=== PATIENT | female | born 1945 | race Caucasian/White ===

== ENCOUNTER 2018-12-10 15:41 | Emergency (ER) | payer MEDICARE ==
[2018-12-10] MEDS ORDERED: Sodium Chloride 0.9% 1000 ML 1,000 ML IV STA (16:06)
[2018-12-10] MEDS ORDERED: Sodium Chloride 0.9% 1000 ML 1,000 ML ONE (16:10)
--- NOTE | 2018-12-10 16:11 | ERPHSYRPT ---
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 She denies recent hospitalization or antibiotics. Timing/Duration: day(s) (3) Activities at Onset: none Abdominal Pain Onset Location: generalized abdomen Pain Radiation: no radiation Severity of Pain-Max: mild Severity of Pain-Current: none Modifying Factors: Improves With: nothing Associated Symptoms: diarrhea, nausea Previous symptoms: no prior history Allergies/Adverse Reactions: tetracycline Allergy (Verified 06/20/16 19:50) Home Medications: Levetiracetam [Keppra 500 mg ] 500 mg PO HS 06/20/16 [History] Simvastatin 40 mg [Zocor 40 mg] 40 mg PO HS 06/20/16 [History] hydroCHLOROthiazide [Hydrochlorothiazide] 12.5 mg PO DAILY 06/20/16 [History] Hx Tetanus, Diphtheria Vaccination/Date Given: No Hx Influenza Vaccination/Date Given: No Hx Pneumococcal Vaccination/Date Given: Yes - Review of Systems Constitutional: No Symptoms Eyes: No Symptoms Ears, Nose, & Throat: No Symptoms Respiratory: No Symptoms Cardiac: No Symptoms Abdominal/Gastrointestinal: Abdominal Pain, Nausea, Diarrhea Musculoskeletal: No Symptoms Skin: No Symptoms Neurological: No Symptoms All Other Systems: Reviewed and Negative - Past Medical History Pertinent Past Medical History: Yes Neurological History: Seizures, Other Cardiac History: Hypertension Respiratory History: No Pertinent History Endocrine Medical History: No Pertinent History Musculoskeletal History: Osteoarthritis GI Medical History: No Pertinent History History: No Pertinent History Psycho-Social History: No Pertinent History Other Medical History: 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 - Past Surgical History Past Surgical History: Yes Gastrointestinal: Appendectomy Musculoskeletal: Joint Replacement, Orthopedic Surgery Female Surgical History: Hysterectomy Other Surgical History: bilat tka, bilat rcr - Social History Smoking Status: Current every day smoker How long have you smoked: 52 yrs Exposure to second hand smoke: Yes Drug Use: none Patient Lives Alone: Yes - Female History Hx Last Menstrual Period: hyster Hx Now: No - Nursing Vital Signs Nursing Vital Signs: Initial Vital Signs Temperature 97.0 F 12/10/18 16:00 Pulse Rate 72 12/10/18 16:00 Respiratory Rate 18 12/10/18 16:00 Blood Pressure 130/75 12/10/18 16:00 O2 Sat by Pulse Oximetry 97 12/10/18 16:00 Pain Scale Pain Intensity 0 - Physical Exam General Appearance: no apparent distress Eye Exam: eyes nml inspection Ears, Nose, Throat Exam: normal ENT inspection, moist mucous membranes Neck Exam: normal inspection, non-tender, supple, No JVD Respiratory Exam: normal breath sounds, lungs clear Cardiovascular Exam: regular rate/rhythm, normal heart sounds, normal peripheral pulses Gastrointestinal/Abdomen Exam: soft, normal bowel sounds, tenderness (mild, diffuse), No distention, No mass, No guarding, No ecchymosis, No pulsatile mass , No rebound, No hernia, No organomegaly Extremity Exam: normal inspection Neurologic Exam: alert, oriented x 3, cooperative, normal mood/affect Skin Exam: normal color, warm, dry, No rash, No petechiae Lymphatic Exam: No adenopathy SpO2 Interpretation: normal SpO2: 97 O2 Delivery: Room Air - Course Nursing assessment & vital signs reviewed: Yes - CT Exams Abdomen/Pelvis CT Interpretation: Negative, Tele-radiologist Report, Other (bilateral renal cysts, and 2 hepatic cysts, no acute changes.) Ordered Tests: Active Orders 24 hr Category Date Time Status IV Insertion STAT Care 12/10/18 16:06 Active ABDOMEN AND PELVIS W CONTRAST [CT] Stat Exams 12/10/18 16:57 Taken CBC W DIFF Stat Lab 12/10/18 16:15 Completed CMP Stat Lab 12/10/18 16:15 Completed CULTURE,URINE Stat Lab 12/10/18 17:15 Received LIPASE Stat Lab 12/10/18 16:15 Completed Lactic Acid Stat Lab 12/10/18 16:20 Completed Occult Blood, Other Screening Stat Lab 12/10/18 17:15 Ordered UA W/RFX UR CULTURE Stat Lab 12/10/18 17:15 Completed Urine Triage Profile Stat Lab 12/10/18 17:15 Completed Medication Summary Discontinued Medications Generic Name Dose Route Start Last Admin Trade Name Freq PRN Reason Stop Dose Admin Sodium Chloride 1,000 mls @ 999 mls/hr 12/10/18 16:06 12/10/18 18:54 Sodium Chloride 0.9% 1000 Ml IV 12/10/18 17:06 Infused .Q1H1M STA Infusion Sodium Chloride Confirm 12/10/18 16:10 Sodium Chloride 0.9% 1000 Ml Administered 12/10/18 16:11 Dose 1,000 mls @ ud .ROUTE .STK-MED ONE Lab/Rad Data: Laboratory Result Diagrams 12/10/18 16:15 12/10/18 16:15 Laboratory Results 12/10/18 12/10/18 12/10/18 Range/Units 17:15 17:15 16:20 WBC (4.0-10.5) K/mm3 RBC (4.1-5.4) M/mm3 Hgb (12.0-16.0) gm/dl Hct (35-47) % MCV (78-100) fl MCH (26-32) pg MCHC (32-36) g/dl RDW (11.5-14.0) % Plt Count (150-450) K/mm3 MPV (6-9.5) fl Gran % (36.0-66.0) % Eos # (Auto) (0-0.5) Absolute Lymphs (auto) (1.0-4.6) Absolute Monos (auto) (0.0-1.3) Lymphocytes % (24.0-44.0) % Monocytes % (0.0-12.0) % Eosinophils % (0.00-5.0) % Basophils % (0.0-0.4) % Absolute Granulocytes (1.4-6.9) Basophils # (0-0.4) Sodium (137-145) mmol/L Potassium (3.5-5.1) mmol/L Chloride (98-107) mmol/L Carbon Dioxide (22-30) mmol/L Anion Gap (5-15) MEQ/L BUN (7-17) mg/dL Creatinine (0.52-1.04) mg/dL Estimated GFR ML/MIN Glucose (74-106) mg/dL Lactic Acid 0.9 (0.4-2.0) Calcium (8.4-10.2) mg/dL Total Bilirubin (0.2-1.3) mg/dL AST (14-36) U/L ALT (0-35) U/L Alkaline Phosphatase (38-126) U/L Serum Total Protein (6.3-8.2) g/dL Albumin (3.5-5.0) g/dL Lipase (23-300) U/L Urine Color YELLOW (YELLOW) Urine Appearance SLIGHTLY CLOUDY (CLEAR) Urine pH 5.0 (5-6) Ur Specific Newell 1.013 (1.005-1.025) Urine Protein 30 (Negative) Urine Ketones NEGATIVE (NEGATIVE) Urine Blood MODERATE (0-5) Kenny/ul Urine Nitrite NEGATIVE (NEGATIVE) Urine Bilirubin NEGATIVE (NEGATIVE) Urine Urobilinogen NEGATIVE (0-1) mg/dL Ur Leukocyte Esterase NEGATIVE (NEGATIVE) Urine WBC (Auto) 0-2 (0-5) /HPF Urine RBC (Auto) 6-10 (0-2) /HPF U Hyaline Cast (Auto) 0-2 (0-2) /LPF U Epithel Cells (Auto) RARE (FEW) /HPF Urine Bacteria (Auto) NONE (NEGATIVE) /HPF Urine Mucus (Auto) SLIGHT (NEGATIVE) /HPF Urine Culture Reflexed YES (NO) Urine Glucose NEGATIVE (NEGATIVE) mg/dL Urine Opiates Level NEGATIVE (NEGATIVE) Ur Methadone NEGATIVE (NEGATIVE) Urine Barbiturates NEGATIVE (NEGATIVE) Ur Phencyclidine (PCP) NEGATIVE (NEGATIVE) Urine Amphetamine NEGATIVE (NEGATIVE) U Benzodiazepine Level NEGATIVE (NEGATIVE) Urine Cocaine NEGATIVE (NEGATIVE) Urine Marijuana (THC) NEGATIVE (NEGATIVE) 12/10/18 12/10/18 Range/Units 16:15 16:15 WBC 6.2 (4.0-10.5) K/mm3 RBC 4.80 (4.1-5.4) M/mm3 Hgb 15.4 (12.0-16.0) gm/dl Hct 46.0 (35-47) % MCV 95.8 (78-100) fl MCH 32.1 H (26-32) pg MCHC 33.5 (32-36) g/dl RDW 13.7 (11.5-14.0) % Plt Count 200 (150-450) K/mm3 MPV 10.9 H (6-9.5) fl Gran % 75.0 H (36.0-66.0) % Eos # (Auto) 0.05 (0-0.5) Absolute Lymphs (auto) 0.79 L (1.0-4.6) Absolute Monos (auto) 0.70 (0.0-1.3) Lymphocytes % 12.7 L (24.0-44.0) % Monocytes % 11.3 (0.0-12.0) % Eosinophils % 0.8 (0.00-5.0) % Basophils % 0.2 (0.0-0.4) % Absolute Granulocytes 4.65 (1.4-6.9) Basophils # 0.01 (0-0.4) Sodium 136 L (137-145) mmol/L Potassium 3.5 (3.5-5.1) mmol/L Chloride 99 (98-107) mmol/L Carbon Dioxide 27 (22-30) mmol/L Anion Gap 13.2 (5-15) MEQ/L BUN 15 (7-17) mg/dL Creatinine 0.73 (0.52-1.04) mg/dL Estimated GFR > 60.0 ML/MIN Glucose 100 (74-106) mg/dL Lactic Acid (0.4-2.0) Calcium 9.8 (8.4-10.2) mg/dL Total Bilirubin 0.60 (0.2-1.3) mg/dL AST 39 H (14-36) U/L ALT 19 (0-35) U/L Alkaline Phosphatase 95 (38-126) U/L Serum Total Protein 7.4 (6.3-8.2) g/dL Albumin 4.1 (3.5-5.0) g/dL Lipase 95 (23-300) U/L Urine Color (YELLOW) Urine Appearance (CLEAR) Urine pH (5-6) Ur Specific Newell (1.005-1.025) Urine Protein (Negative) Urine Ketones (NEGATIVE) Urine Blood (0-5) Kenny/ul Urine Nitrite (NEGATIVE) Urine Bilirubin (NEGATIVE) Urine Urobilinogen (0-1) mg/dL Ur Leukocyte Esterase (NEGATIVE) Urine WBC (Auto) (0-5) /HPF Urine RBC (Auto) (0-2) /HPF U Hyaline Cast (Auto) (0-2) /LPF U Epithel Cells (Auto) (FEW) /HPF Urine Bacteria (Auto) (NEGATIVE) /HPF Urine Mucus (Auto) (NEGATIVE) /HPF Urine Culture Reflexed (NO) Urine Glucose (NEGATIVE) mg/dL Urine Opiates Level (NEGATIVE) Ur Methadone (NEGATIVE) Urine Barbiturates (NEGATIVE) Ur Phencyclidine (PCP) (NEGATIVE) Urine Amphetamine (NEGATIVE) U Benzodiazepine Level (NEGATIVE) Urine Cocaine (NEGATIVE) Urine Marijuana (THC) (NEGATIVE) - Progress Progress: improved Progress Note: 12/10/18 19:10 Pt did not have bowel movement here, no fever, denies pain, cramps or nausea, she was given NS bolus, we discussed her test results, she is being discharged to rest x 2-3 days, continue diary free diet, and liquids, follow up with her physician in 2-3 days. Counseled pt/family regarding: lab results, diagnosis, need for follow-up, rad results - Departure Departure Disposition: Home Clinical Impression: Diarrhea Qualifiers: Diarrhea type: unspecified type Qualified Code(s): R19.7 - Diarrhea, unspecified Condition: Stable Critical Care Time: No Referrals: MAGY SPENCER MD [Primary Care Provider] - Instructions: Diarrhea and Traveler's Diarrhea, Adult (DC) Additional Instructions: Rest x 2-3 days, drink plenty of fluids, and continue diary free diet, follow up with your physician in 2-3 days, return if severe pain, bleeding, vomiting, fever>102 F! Prescriptions: Metronidazole 500 mg [Flagyl 500 MG] 500 mg PO TID #21 tablet
[2018-12-10 16:21] LABS: BASOPHIL % 0.2 % (0.0-0.4); Basophil (Absolute #) 0.01 (0-0.4); Eosinophil % 0.8 % (0.00-5.0); Eosinophil (Absolute #) 0.05 (0-0.5); Granulocyte Absolute (ANC) 4.65 (1.4-6.9); Hemoglobin 15.4 gm/dl (12.0-16.0); Lymphocyte (Absolute #) 0.79 (1.0-4.6); Lymphocytes % 12.7 % (24.0-44.0); Mean Cell Volume 95.8 fl (78-100); Mean Corpuscular Hemoglobin 32.1 pg (26-32); Mean Corpuscular Hgb Concent. 33.5 g/dl (32-36); Mean Platelet Volume 10.9 fl (6-9.5); Monocytes % 11.3 % (0.0-12.0); Platelet Count 200 K/mm3 (150-450); Red Cell Distribution Width 13.7 % (11.5-14.0); White Blood Count 6.2 K/mm3 (4.0-10.5)
[2018-12-10 16:32] LABS: ALBUMIN 4.1 g/dL (3.5-5.0); ALKALINE PHOSPHATASE 95 U/L (38-126); ANION GAP 13.2 MEQ/L (5-15); BLOOD UREA NITROGEN 15 mg/dL (7-17); CHLORIDE 99 mmol/L (98-107); Calcium 9.8 mg/dL (8.4-10.2); Carbon Dioxide 27 mmol/L (22-30); Creatinine 1 0.73 mg/dL (0.52-1.04); Glucose 100 mg/dL (74-106); LIPASE 95 U/L (23-300); Potassium 3.5 mmol/L (3.5-5.1); SGOT/AST 39 U/L (14-36); SGPT/ALT 19 U/L (0-35); SODIUM 136 mmol/L (137-145); Total Protein 7.4 g/dL (6.3-8.2)
[2018-12-10 17:46] LABS: Appearance SLIGHTLY CLOUDY (CLEAR); Bilirubin NEGATIVE (NEGATIVE); Blood MODERATE Ery/ul (0-5); Epithelial Cells RARE /HPF (FEW); Glucose NEGATIVE (NEGATIVE); Hyaline Casts 0-2 /LPF (0-2); Ketones NEGATIVE (NEGATIVE); Leukocyte Esterase NEGATIVE (NEGATIVE); Mucus SLIGHT /HPF (NEGATIVE); Nitrite NEGATIVE (NEGATIVE); Protein,Urine Dip 30 (Negative); Specific Gravity 1.013 (1.005-1.025); Urobilinogen NEGATIVE mg/dL (0-1); WBC 0-2 /HPF (0-5)
[2018-12-10 17:56] LABS: Amphetamine,Urine NEGATIVE (NEGATIVE); Barbiturate,Urine NEGATIVE (NEGATIVE); Benzodiazepine,Urine NEGATIVE (NEGATIVE); Cocaine,Urine NEGATIVE (NEGATIVE); Methadone,Urine NEGATIVE (NEGATIVE); Opiate,Urine NEGATIVE (NEGATIVE); PCP,Urine NEGATIVE (NEGATIVE); THC,Urine NEGATIVE (NEGATIVE)
[2018-12-10] MEDS ORDERED: Flagyl 500 MG PO ONE (19:11)
[2018-12-10] MEDS ORDERED: Flagyl 500 MG ONE (19:14)
[2018-12-10 19:29] VITALS: BP 134/58; PULSE 67; O2SAT 99
--- NOTE | 2018-12-11 08:43 | XRAY ---
Indication: Abdomen pain, nausea, loose stools, and elevated AST. Multiple contiguous axial images obtained through the abdomen and pelvis using 80 cc Isovue 370 contrast only. Comparison: None Lung bases demonstrates minimal bibasilar atelectasis/scarring. No infiltrate or effusion. Heart is not enlarged. Noncontrasted stomach and bowel loops appear nonobstructed. Previous reported appendectomy and hysterectomy. No free fluid/air. Scattered centimeter/subcentimeter mesenteric nodes with stranding, possible adenitis. 1 cm right adrenal adenoma. Both kidneys enhance and excrete with bilateral renal cysts, largest on the right measuring 3.5 cm. 2 hepatic cysts, largest inferior right lobe measuring 2.2 cm. Remaining liver, gallbladder, pancreas, spleen, adrenal glands, kidneys, ureters, and bladder appear unremarkable. Moderate scattered aortoiliac calcifications. No AAA or pathologic retroperitoneal lymphadenopathy. Osseous structures intact with mild degenerative changes throughout the thoracolumbar spine. No ventral or inguinal hernias. Impression: 1. Small mesenteric nodes, possible adenitis. 2. Hepatic and bilateral renal cysts. 3. Tiny right adrenal adenoma. 4. Remaining CT abdomen/pelvis with contrast exam is negative. CT DI 23.68
== END 2018-12-10 19:39 | disposition home or self-care (01) ==
LOC: ED 15:41
DX: R19.7 Diarrhea, unspecified (principal); R10.9 Unspecified abdominal pain; I10 Essential (primary) hypertension; G40.909 Epilepsy, unspecified, not intractable, without status epilepticus; Z79.899 Other long term (current) drug therapy; M19.90 Unspecified osteoarthritis, unspecified site
CPT/HCPCS: 36000; 36415; 74177; 80053; 80307; 81001; 83605; 83690; 85025; 87086; 96360; 99284; A9270-GY

== ENCOUNTER 2019-06-13 16:29 | Emergency (ER) | payer MEDICARE ==
[2019-06-13] MEDS ORDERED: Sodium Chloride 0.9% 1000 ML 1,000 ML IV STA (16:53)
[2019-06-13] MEDS ORDERED: Sodium Chloride 0.9% 1000 ML 1,000 ML ONE (16:58)
[2019-06-13 17:27] LABS: BASOPHIL % 0.2 % (0.0-0.4); Basophil (Absolute #) 0.02 (0-0.4); Eosinophil (Absolute #) 0.17 (0-0.5); Hematocrit 42.8 % (35-47); Hemoglobin 14.7 gm/dl (12.0-16.0); Lymphocyte (Absolute #) 1.34 (1.0-4.6); Lymphocytes % 15.7 % (24.0-44.0); Mean Cell Volume 96.4 fl (78-100); Mean Corpuscular Hemoglobin 33.1 pg (26-32); Mean Corpuscular Hgb Concent. 34.3 g/dl (32-36); Mean Platelet Volume 10.7 fl (6-9.5); Monocyte (Absolute #) 0.68 (0.0-1.3); Neutrophil % 74.1 % (36.0-66.0); Platelet Count 213 K/mm3 (150-450); Red Blood Count 4.44 M/mm3 (4.1-5.4); Red Cell Distribution Width 13.3 % (11.5-14.0); White Blood Count 8.5 K/mm3 (4.0-10.5)
[2019-06-13 17:39] LABS: ALBUMIN 4.1 g/dL (3.5-5.0); ALKALINE PHOSPHATASE 78 U/L (38-126); AMYLASE 68 U/L (30-110); ANION GAP 14.3 MEQ/L (5-15); BLOOD UREA NITROGEN 17 mg/dL (7-17); CHLORIDE 100 mmol/L (98-107); Calcium 10.2 mg/dL (8.4-10.2); Carbon Dioxide 29 mmol/L (22-30); Creatinine 1 0.62 mg/dL (0.52-1.04); Glucose 94 mg/dL (74-106); LIPASE 60 U/L (23-300); Potassium 3.5 mmol/L (3.5-5.1); SGOT/AST 24 U/L (14-36); SGPT/ALT 14 U/L (0-35); SODIUM 140 mmol/L (137-145); Total Protein 7.3 g/dL (6.3-8.2)
--- NOTE | 2019-06-13 17:42 | ERPHSYRPT ---
- History of Present Illness Time Seen by Provider: 06/13/19 17:40 Historian: patient Exam Limitations: no limitations Patient Subjective Stated Complaint: DIARRHEA SINCE SATURDAY. LAST BM 1300. SHARP INTERMITTEN ABDOMINAL PAIN SINCE SATURDAY. FEELS UNABLE TO EAT OR KEEP ANYTYHING IN SYSTEM. Triage Nursing Assessment: ALERT AND ORIENTED. UNSTEADY GAIT WITH CANE, CHRONIC. DENIES NAUSEA/VOMITING. Physician History: 74-year-old female came to the emergency room with complaining of diarrhea since Saturday, started 5 days ago. Patient is denying any fever, chills, nausea or vomiting. Patient is complaining of generalized soreness in the abdominal area. Timing/Duration: day(s) (5 days) Activities at Onset: none Abdominal Pain Onset Location: generalized abdomen Pain Radiation: no radiation Severity of Pain-Max: mild Severity of Pain-Current: mild Associated Symptoms: diarrhea Previous symptoms: no prior history Allergies/Adverse Reactions: tetracycline Allergy (Verified 06/20/16 19:50) metronidazole [From Flagyl] Adverse Reaction (Verified 06/13/19 16:48) PT REPORTS SEVERE WEAKNESS Home Medications: Levetiracetam [Keppra 500 mg ] 500 mg PO HS 06/20/16 [History] Simvastatin 40 mg [Zocor 40 mg] 40 mg PO HS 06/20/16 [History] Citalopram Hydrobromide [Citalopram HBr] 10 mg PO DAILY 06/13/19 [History] Lisinopril/Hydrochlorothiazide [Lisinopril-Hctz 20-25 mg Tab] 1 tab PO DAILY 01/25 [History] Hx Tetanus, Diphtheria Vaccination/Date Given: No Hx Influenza Vaccination/Date Given: No Hx Pneumococcal Vaccination/Date Given: Yes - Review of Systems Constitutional: No Fever, No Chills Eyes: No Symptoms Ears, Nose, & Throat: No Symptoms Respiratory: No Cough, No Dyspnea Cardiac: No Chest Pain, No Edema, No Syncope Abdominal/Gastrointestinal: Abdominal Pain, Diarrhea, No Nausea, No Vomiting Genitourinary Symptoms: No Dysuria Musculoskeletal: No Back Pain, No Neck Pain Skin: No Rash Neurological: No Dizziness, No Focal Weakness, No Sensory Changes Psychological: No Symptoms Endocrine: No Symptoms All Other Systems: Reviewed and Negative - Past Medical History Pertinent Past Medical History: Yes Neurological History: Seizures, Other Cardiac History: Hypertension Respiratory History: No Pertinent History Endocrine Medical History: No Pertinent History Musculoskeletal History: Osteoarthritis GI Medical History: No Pertinent History History: No Pertinent History Psycho-Social History: No Pertinent History Other Medical History: 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, VERTIGO, MENINGEAL TUMOR - Past Surgical History Past Surgical History: Yes Gastrointestinal: Appendectomy Musculoskeletal: Joint Replacement, Orthopedic Surgery Female Surgical History: Hysterectomy Other Surgical History: bilat tka, bilat rcr - Social History Smoking Status: Current every day smoker How long have you smoked: 52 yrs Exposure to second hand smoke: No Drug Use: none Patient Lives Alone: Yes - Nursing Vital Signs Nursing Vital Signs: Initial Vital Signs Temperature 98.7 F 06/13/19 16:53 Pulse Rate 66 06/13/19 16:53 Respiratory Rate 18 06/13/19 16:53 Blood Pressure 139/68 06/13/19 16:53 O2 Sat by Pulse Oximetry 96 06/13/19 16:53 - Physical Exam General Appearance: no apparent distress, alert Eye Exam: PERRL/EOMI, eyes nml inspection Ears, Nose, Throat Exam: normal ENT inspection, pharynx normal, moist mucous membranes Neck Exam: normal inspection, non-tender, supple, full range of motion Respiratory Exam: normal breath sounds, lungs clear, No respiratory distress Cardiovascular Exam: regular rate/rhythm, normal heart sounds Gastrointestinal/Abdomen Exam: soft, No tenderness, No mass Back Exam: normal inspection, normal range of motion, No CVA tenderness, No vertebral tenderness Extremity Exam: normal inspection, normal range of motion, pelvis stable Neurologic Exam: alert, oriented x 3, cooperative, normal mood/affect, nml cerebellar function, sensation nml, No motor deficits Skin Exam: normal color, warm, dry SpO2: 96 - Course Nursing assessment & vital signs reviewed: Yes - Radiology Exams Abdomen X-ray Interpretation: Reviewed by me, Negative Ordered Tests: Active Orders 24 hr Category Date Time Status OBSTR/ACUTE ABDOMEN SERIES Stat Exams 06/13/19 17:18 Taken AMYLASE Stat Lab 06/13/19 17:23 Completed CBC W DIFF Stat Lab 06/13/19 17:23 Completed CMP Stat Lab 06/13/19 17:23 Completed LIPASE Stat Lab 06/13/19 17:23 Completed Lactic Acid Stat Lab 06/13/19 17:21 Completed UA W/RFX UR CULTURE Stat Lab 06/13/19 16:53 Uncollected Medication Summary Discontinued Medications Generic Name Dose Route Start Last Admin Trade Name Micaela PRN Reason Stop Dose Admin Diphenoxylate HCl/Atropine 1 tablet 06/13/19 18:03 06/13/19 18:07 Lomotil PO 06/13/19 18:04 1 tablet STAT ONE Administration Sodium Chloride 1,000 mls @ 999 mls/hr 06/13/19 16:53 06/13/19 17:29 Sodium Chloride 0.9% 1000 Ml IV 06/13/19 17:53 999 mls/hr .Q1H1M STA Administration Sodium Chloride Confirm 06/13/19 16:58 Sodium Chloride 0.9% 1000 Ml Administered 06/13/19 16:59 Dose 1,000 mls @ ud .ROUTE .STK-MED ONE Lab/Rad Data: Laboratory Result Diagrams 06/13/19 17:23 06/13/19 17:23 Laboratory Results 06/13/19 06/13/19 06/13/19 Range/Units 17:23 17:23 17:21 WBC 8.5 (4.0-10.5) K/mm3 RBC 4.44 (4.1-5.4) M/mm3 Hgb 14.7 (12.0-16.0) gm/dl Hct 42.8 (35-47) % MCV 96.4 (78-100) fl MCH 33.1 H (26-32) pg MCHC 34.3 (32-36) g/dl RDW 13.3 (11.5-14.0) % Plt Count 213 (150-450) K/mm3 MPV 10.7 H (6-9.5) fl Gran % 74.1 H (36.0-66.0) % Eos # (Auto) 0.17 (0-0.5) Absolute Lymphs (auto) 1.34 (1.0-4.6) Absolute Monos (auto) 0.68 (0.0-1.3) Lymphocytes % 15.7 L (24.0-44.0) % Monocytes % 8.0 (0.0-12.0) % Eosinophils % 2.0 (0.00-5.0) % Basophils % 0.2 (0.0-0.4) % Absolute Granulocytes 6.30 (1.4-6.9) Basophils # 0.02 (0-0.4) Sodium 140 (137-145) mmol/L Potassium 3.5 (3.5-5.1) mmol/L Chloride 100 (98-107) mmol/L Carbon Dioxide 29 (22-30) mmol/L Anion Gap 14.3 (5-15) MEQ/L BUN 17 (7-17) mg/dL Creatinine 0.62 (0.52-1.04) mg/dL Estimated GFR > 60.0 ML/MIN Glucose 94 (74-106) mg/dL Lactic Acid 0.8 (0.4-2.0) Calcium 10.2 (8.4-10.2) mg/dL Total Bilirubin 0.90 (0.2-1.3) mg/dL AST 24 (14-36) U/L ALT 14 (0-35) U/L Alkaline Phosphatase 78 (38-126) U/L Serum Total Protein 7.3 (6.3-8.2) g/dL Albumin 4.1 (3.5-5.0) g/dL Amylase 68 (30-110) U/L Lipase 60 (23-300) U/L - Progress Progress: improved Counseled pt/family regarding: lab results, diagnosis, need for follow-up, rad results - Departure Departure Disposition: Home Clinical Impression: Diarrhea Qualifiers: Diarrhea type: functional diarrhea Qualified Code(s): K59.1 - Functional diarrhea Condition: Stable Critical Care Time: No Referrals: MAGY SPENCER MD [Primary Care Provider] - Instructions: Diarrhea and Traveler's Diarrhea, Adult (DC) Additional Instructions: VOMITING AND DIARRHEA 1. Take only small amounts of clear, cool liquids at frequent intervals as tolerated for the next 24-48 hours. Avoid milk products and orange juice. Clear liquids are those liquids which you can see through. 2. Pedialyte and popsicles are recommended clear liquids. 3. If the condition worsens you should contact your family physician or return to the emergency department for re-evaluation. Discharge/Care Plan FLIPYANCI TRAN was seen on 06/13/19 in the Emergency Room. The patient was counseled regarding Diagnosis,Lab results, Imaging studies, need for follow up and when to return to the Emergency Room. Prescriptions given: Discharge Note I have spoken with the patient and/or caregivers. I have explained the patient' s condition, diagnosis and treatment plan based on the information available to me at this time. I have answered the patient's and/or caregiver's questions and addressed any concerns. The patient and/or caregivers have as good understanding of the patient's diagnosis, condition and treatment plan as can be expected at this point. The vital signs have been stable. The patient's condition is stable and appropriate for discharge from the emergency department. The patient will pursue further outpatient evaluation with the primary care physician or other designated or consulting physician as outlined in the discharge instructions. The patient and/or caregivers are agreeable to this plan of care and follow-up instructions have been explained in detail. The patient and/or caregivers have received these instruction. The patient/and or caregivers are aware that any significant change in condition or worsening of symptoms should prompt an immediate return to this or the closest emergency department or call 911. Please follow-up with your primary care physician and consider getting colonoscopy done . Evaluate for your chronic diarrhea. Prescriptions: Diphenoxylate HCl/Atropine [Lomotil Tablet] 1 each PO Q6H #30 tablet
[2019-06-13] MEDS ORDERED: Lomotil PO ONE (18:03)
[2019-06-13] MEDS ORDERED: Lomotil ONE (18:06)
[2019-06-13 18:17] VITALS: BP 119/64; PULSE 61; O2SAT 98
--- NOTE | 2019-06-13 20:53 | XRAY ---
Indication: Abdomen pain and diarrhea 1 week. Comparison: Chest exam June 20, 2016. 2 views of the abdomen demonstrates nonspecific nonobstructed bowel gas pattern. No focal bowel dilatation or free air. A few pelvic surgical clips. Remaining solid organs are unremarkable. Osseous structures intact with mild osteopenia, mild degenerative changes throughout the thoracolumbar spine, and mild degenerative changes of both hips. Single PA chest hyperinflated and clear with incidental right base calcified granuloma. Heart is not enlarged. Bony thorax intact again with mild osteopenia and degenerative changes. Impression: Nonacute nonobstructed abdomen and nonacute hyperinflated chest with chronic features.
== END 2019-06-13 18:31 | disposition home or self-care (01) ==
LOC: ED 16:29
DX: K59.1 Functional diarrhea (principal); R10.9 Unspecified abdominal pain; R53.1 Weakness; I10 Essential (primary) hypertension; G40.909 Epilepsy, unspecified, not intractable, without status epilepticus; Z79.899 Other long term (current) drug therapy
CPT/HCPCS: 36415; 74022; 80053; 82150; 83605; 83690; 85025; 96360; 99284; A9270-GY

== ENCOUNTER 2020-05-27 13:59 | Emergency (ER) | payer MEDICARE ==
--- NOTE | 2020-05-27 15:20 | ERPHSYRPT ---
- History of Present Illness Source: patient Exam Limitations: no limitations Patient Subjective Stated Complaint: Pt states that she fell on Saturday on tile floor and landed on her bottom but now her lower back is hurting Triage Nursing Assessment: Pt was brought to the ER by a friend, hypertensive, tender to left distal back, slight bruising, denies losing consciousness, denies hitting head, pulses normal, chronic lower leg extremity edema, rates pain 10/10 Physician History: 75 yo wf fell at home 4 days ago when she lost her balance and fell. Pt complains of lower lumbar pain rated a 10 which is worse w movement. She denies MACIEL/LOC/C-spine pain/chest pain/focal weakness/fever/hip pain/upper or LE pain. She ambulates w a cane. Occurred: other (4 days ago) Reason for Fall: lost balance Injuries/Pain Location: back (Lumbar) Loss of Consciousness: no loss of consciousness Quality: aching Severity of Pain-Max: severe Severity of Pain-Current: severe Modifying Factors: Improves With: movement Associated Symptoms (Fall): back pain, No abdominal pain, No confusion, No chest pain, No dizziness, No extremity injury, No headache, No lightheadedness, No muscle spasms, No nausea, No neck pain, No ringing in ears, No seizures, No shortness of breath, No slurred speech, No trouble walking, No vomiting Allergies/Adverse Reactions: tetracycline Allergy (Verified 05/27/20 14:18) metronidazole [From Flagyl] Adverse Reaction (Verified 05/27/20 14:18) PT REPORTS SEVERE WEAKNESS Home Medications: Levetiracetam [Keppra 500 mg ] 500 mg PO HS 06/20/16 [History] Simvastatin 40 mg [Zocor 40 mg] 40 mg PO HS 06/20/16 [History] Citalopram Hydrobromide [Citalopram HBr] 5 mg PO DAILY 06/13/19 [History] Alendronate Sodium 70 mg [Fosamax 70 MG] 70 mg PO Q7D@0600 05/27/20 [History] Cyclobenzaprine HCl [Flexeril] 5 mg PO HS 05/27/20 [History] Naproxen 500 mg PO BIDWM 05/27/20 [History] hydroCHLOROthiazide [Hydrochlorothiazide] 25 mg PO DAILY 05/27/20 [History] Hx Tetanus, Diphtheria Vaccination/Date Given: No Hx Influenza Vaccination/Date Given: No Hx Pneumococcal Vaccination/Date Given: Yes Travel Risk - International Travel Have you traveled outside of the country in past 3 weeks: No - Coronavirus Screening Are you exhibiting any of the following symptoms?: No Close contact with a COVID-19 positive Pt in past 14-21 Days: No - Review of Systems Constitutional: No Symptoms Eyes: No Symptoms Ears, Nose, & Throat: No Symptoms Respiratory: No Symptoms Cardiac: No Symptoms Abdominal/Gastrointestinal: No Symptoms Genitourinary Symptoms: No Symptoms Musculoskeletal: Back Pain Skin: No Symptoms Neurological: No Symptoms Psychological: No Symptoms Endocrine: No Symptoms Hematologic/Lymphatic: No Symptoms Immunological/Allergic: No Symptoms - Past Medical History Pertinent Past Medical History: Yes Neurological History: Seizures, Other Cardiac History: Hypertension Respiratory History: No Pertinent History Endocrine Medical History: No Pertinent History Musculoskeletal History: Osteoarthritis GI Medical History: No Pertinent History History: No Pertinent History Psycho-Social History: No Pertinent History Other Medical History: 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, VERTIGO, MENINGEAL TUMOR - Past Surgical History Past Surgical History: Yes Gastrointestinal: Appendectomy Musculoskeletal: Joint Replacement, Orthopedic Surgery Female Surgical History: Hysterectomy Other Surgical History: bilat tka, bilat rcr - Social History Smoking Status: Current every day smoker How long have you smoked: 52 yrs Exposure to second hand smoke: Yes Drug Use: none Patient Lives Alone: Yes Significant Family History: no pertinent family hx - Female History Hx Now: Yes - Nursing Vital Signs Nursing Vital Signs: Initial Vital Signs Temperature 97.9 F 05/27/20 14:09 Pulse Rate 64 05/27/20 14:09 Blood Pressure 162/79 05/27/20 14:09 O2 Sat by Pulse Oximetry 96 05/27/20 14:09 Pain Scale Pain Intensity [] 10 Pain Intensity 5 - Brussels Coma Score Best Eye Response (Dionna): (4) open spontaneously Best Verbal Response (Dionna): (5) oriented Best Motor Response (Dionna): (6) obeys commands Dionna Total: 15 - Physical Exam General Appearance: no apparent distress (Mild pain) Head Injury: no evidence of injury, No active bleeding, No Medina's Sign, No contusions Eye Exam: PERRL/EOMI, eyes nml inspection ENT Exam: airway nml, nml ext.inspection, No evidence of ENT injury, No clear fluid (ears), No clear fluid (nose) Neck Exam: supple, trachea midline (C-spine nttp) Respiratory/Chest Exam: normal breath sounds, No chest tenderness, No respiratory distress, No decreased breath sounds Cardiovascular Exam: normal heart sounds, regular rate/rhythm, murmur (2/6 ANDREAS) Gastrointestinal Exam: soft, normal bowel sounds, No tenderness (Obese) Back Exam: other (Inferior lumbar/L flank ttp) Extremity Exam: pelvis stable Neurologic Exam: alert, oriented x 3, cooperative, 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, normal mood/affect, sensation nml, No motor deficits, No sensory deficit Skin Exam: normal color, warm, dry SpO2 Interpretation: normal SpO2: 97 O2 Delivery: Room Air - Course Nursing assessment & vital signs reviewed: Yes - CT Exams Abdomen/Pelvis CT Interpretation: Discussed w/radiologist (New L 10th rib fx/DJD) Ordered Tests: Active Orders 24 hr Category Date Time Status IV Insertion STAT Care 05/27/20 15:47 Completed ABDOMEN AND PELVIS W CONTRAST [CT] Stat Exams 05/27/20 14:30 Taken BMP Stat Lab 05/27/20 15:53 Completed Medication Summary Discontinued Medications Generic Name Dose Route Start Last Admin Trade Name Micaela PRN Reason Stop Dose Admin Fentanyl Citrate 50 mcg 05/27/20 18:04 05/27/20 18:14 Sublimaze 100 Mcg/2 Ml IV 05/27/20 18:05 50 mcg STAT ONE Administration Fentanyl Citrate Confirm 05/27/20 18:11 Sublimaze 100 Mcg/2 Ml Administered 05/27/20 18:12 Dose 100 mcg .ROUTE .STK-MED ONE Ketorolac Tromethamine 15 mg 05/27/20 16:05 05/27/20 16:26 Toradol 30 Mg Injection IV 05/27/20 16:06 15 mg STAT ONE Administration Ketorolac Tromethamine Confirm 05/27/20 16:23 Toradol 30 Mg Injection Administered 05/27/20 16:24 Dose 30 mg .ROUTE .STK-MED ONE Ondansetron HCl 4 mg 05/27/20 18:04 05/27/20 18:14 Zofran 4 Mg/2 Ml Vial IV 05/27/20 18:05 4 mg STAT ONE Administration Ondansetron HCl Confirm 05/27/20 18:12 Zofran 4 Mg/2 Ml Vial Administered 05/27/20 18:13 Dose 4 mg .ROUTE .STK-MED ONE Lab/Rad Data: Laboratory Result Diagrams 05/27/20 15:53 Laboratory Results 05/27/20 Range/Units 15:53 Sodium 138 (137-145) mmol/L Potassium 3.8 (3.5-5.1) mmol/L Chloride 101 (98-107) mmol/L Carbon Dioxide 33 H (22-30) mmol/L Anion Gap 8.8 (5-15) MEQ/L BUN 17 (7-17) mg/dL Creatinine 0.58 (0.52-1.04) mg/dL Estimated GFR > 60.0 ML/MIN Glucose 113 H (74-106) mg/dL Calcium 10.3 H (8.4-10.2) mg/dL - Progress Progress: improved Progress Note: 05/27/20 18:06 15mg IV toradol w minor improvement 50mcg IV Fentanyl/4mg IV Zofran before discharge 05/27/20 19:36 CT report w L 10th rib fx/Pt states that she is TTP inferior L lumbar. Counseled pt/family regarding: lab results, diagnosis, need for follow-up, rad results - Departure Departure Disposition: Home Clinical Impression: Rib fracture, Lumbar back pain Condition: Stable Critical Care Time: No Referrals: MAGY SPENCER MD [Primary Care Provider] - Instructions: Low Back Pain (DC), Rib Fracture (DC) Additional Instructions: Follow up with family MD in 2-3 days Return to ER for increasing pain/focal weakness Prescriptions: Hydrocodone/APAP 5-325 Tab^^^ [Michael 5-325 Tablet^^^] 1 each PO Q4HPRN PRN #8 tablet MDD 6 PRN Reason: Pain
[2020-05-27] MEDS ORDERED: TORAdol 30 mg Injection IV ONE (16:05)
[2020-05-27 16:06] LABS: ANION GAP 8.8 MEQ/L (5-15); BLOOD UREA NITROGEN 17 mg/dL (7-17); CHLORIDE 101 mmol/L (98-107); Calcium 10.3 mg/dL (8.4-10.2); Carbon Dioxide 33 mmol/L (22-30); Creatinine 1 0.58 mg/dL (0.52-1.04); EST GLOMERULAR FILTRATION RATE > 60.0 ML/MIN; Glucose 113 mg/dL (74-106); Potassium 3.8 mmol/L (3.5-5.1); SODIUM 138 mmol/L (137-145)
[2020-05-27] MEDS ORDERED: TORAdol 30 mg Injection ONE (16:23)
[2020-05-27] MEDS ORDERED: SUBLIMAZE 100 MCG/2 ML IV ONE (18:04)
[2020-05-27] MEDS ORDERED: Zofran 4 MG/2 ML VIAL IV ONE (18:04)
[2020-05-27 18:05] VITALS: BP 157/74; PULSE 64
[2020-05-27 18:08] VITALS: O2SAT 97
[2020-05-27] MEDS ORDERED: SUBLIMAZE 100 MCG/2 ML ONE (18:11)
[2020-05-27] MEDS ORDERED: Zofran 4 MG/2 ML VIAL ONE (18:12)
--- NOTE | 2020-05-28 08:16 | XRAY ---
Indication: Pelvic pain following fall 4 days ago. Multiple contiguous axial images obtained through the abdomen and pelvis using 80 cc Isovue 370 contrast. Comparison: December 10, 2018. Lung bases again demonstrates bibasilar subsegmental atelectasis/scarring. No infiltrate or effusion. Heart is not enlarged. Noncontrasted stomach and bowel loops remain nonobstructed. Again reported appendectomy and hysterectomy. No free fluid/air. Stable bilateral renal cysts hepatic cysts, and hepatic calcified granuloma. The remaining liver, gallbladder, pancreas, spleen, adrenal glands, kidneys, ureters, and bladder appear unremarkable. Stable moderate aortoiliac calcifications. No AAA or pathological retroperitoneal lymphadenopathy. Osseous structures again demonstrates mild osteopenia, mild degenerative changes throughout the thoracolumbar spine, and mild bilateral hip degenerative arthropathy. New finding for old left 10 rib fracture. Impression: 1. New finding old left 10 rib fracture. Stable osteopenia and degenerative changes. 2. Stable renal/hepatic cysts. 3. Remaining CT abdomen/pelvis with contrast exam is negative.
== END 2020-05-27 19:00 | disposition home or self-care (01) ==
LOC: ED 13:59
DX: S22.42XA Multiple fractures of ribs, left side, initial encounter for closed fracture (principal); M54.5 Low back pain; W19.XXXA Unspecified fall, initial encounter; Z79.899 Other long term (current) drug therapy; I10 Essential (primary) hypertension
CPT/HCPCS: 36000; 36415; 74177; 80048; 96374; 96375; 99284; J1885; J2405; J3010

== ENCOUNTER 2020-05-28 13:23 | Observation (INO) | payer MEDICARE ==
[2020-05-28] MEDS ORDERED: MORPHINE SULFATE 4 MG INJ IV ONE (13:50)
[2020-05-28] MEDS ORDERED: Zofran 4 MG/2 ML VIAL IV ONE (13:50)
[2020-05-28] MEDS ORDERED: Zofran 4 MG/2 ML VIAL ONE (14:03)
[2020-05-28] MEDS ORDERED: MORPHINE SULFATE 4 MG INJ ONE (14:03)
[2020-05-28 14:05] LABS: Absolute Neutrophil Ct (ANC) 11.27 (1.4-6.9); BASOPHIL % 0.2 % (0.0-0.4); Basophil (Absolute #) 0.02 (0-0.4); Eosinophil % 1.5 % (0.00-5.0); Hematocrit 42.7 % (35-47); Hemoglobin 13.9 gm/dl (12.0-16.0); Lymphocyte (Absolute #) 1.03 (1.0-4.6); Lymphocytes % 7.8 % (24.0-44.0); Mean Cell Volume 99.1 fl (78-100); Mean Corpuscular Hemoglobin 32.3 pg (26-32); Mean Corpuscular Hgb Concent. 32.6 g/dl (32-36); Mean Platelet Volume 11.4 fl (7.5-11.0); Monocyte (Absolute #) 0.77 (0.0-1.3); Monocytes % 5.8 % (0.0-12.0); Neutrophil % 84.7 % (36.0-66.0); Platelet Count 176 K/mm3 (150-450); Red Blood Count 4.31 M/mm3 (4.1-5.4); Red Cell Distribution Width 13.6 % (11.5-14.0); White Blood Count 13.3 K/mm3 (4.0-10.5)
--- NOTE | 2020-05-28 14:05 | ERPHSYRPT ---
- History of Present Illness Time Seen by Provider: 05/28/20 13:43 Source: patient, EMS Exam Limitations: no limitations Patient Subjective Stated Complaint: Pt had a fall on Saturday and came to the ER yesterday, today she states that she stood up and couldn't move any farther, states that she is in exteme pain Triage Nursing Assessment: Pt brought to the ER by EMS, hypertensive, rates pain in lower back as 10/10, more pronounced in the left, no visible bruising or markings, reports having spasms in her back, pulses normal, no difficulties with strength Physician History: 75 years old female with history of chronic back pain, balance issues, hypertension presented in the ER with chief complaint of worsening low back pain for the last 5 days after she lost her balance and went down on her back at a ground-level. Did not hit her head, no loss of consciousness. She was evaluated yesterday in the ER with negative work-up and was discharged but patient is unable to get up and do any routine activities. Pain is more in the low back with radiation to bilateral hips, aggravated with movements and no significant relieving factors. Denies any numbness tingling or new weakness but what she has at her baseline. Denies any loss of bowel or bladder control. Denies any nausea vomiting or abdominal pain. No chest pain palpitations or shortness of breath. She is complaining of increased urinary frequency with some burning and suprapubic discomfort for the last few days. No fever chills or sick contact. Timing/Duration: day(s) (5), sudden, worse Method of Injury: fall Quality: sharp Back Pain Location: lumbar spine, paraspinous muscles Back Pain Radiation: buttocks Severity of Pain-Max: severe Severity of Pain-Current: severe Modifying Factors: Improves With: movement Associated Symptoms: lower back pain, No numbness in legs/feet, No sensory/motor loss Previous symptoms: no prior history Allergies/Adverse Reactions: tetracycline Allergy (Verified 05/28/20 13:37) metronidazole [From Flagyl] Adverse Reaction (Verified 05/28/20 13:37) PT REPORTS SEVERE WEAKNESS Home Medications: Levetiracetam [Keppra 500 mg ] 500 mg PO HS 06/20/16 [History] Simvastatin 40 mg [Zocor 40 mg] 40 mg PO HS 06/20/16 [History] Citalopram Hydrobromide [Citalopram HBr] 5 mg PO DAILY 06/13/19 [History] Alendronate Sodium 70 mg [Fosamax 70 MG] 70 mg PO Q7D@0600 05/27/20 [History] Cyclobenzaprine HCl [Flexeril] 5 mg PO HS 05/27/20 [History] Naproxen 500 mg PO BIDWM 05/27/20 [History] hydroCHLOROthiazide [Hydrochlorothiazide] 25 mg PO DAILY 05/27/20 [History] Hx Tetanus, Diphtheria Vaccination/Date Given: No Hx Influenza Vaccination/Date Given: No Hx Pneumococcal Vaccination/Date Given: Yes Travel Risk - International Travel Have you traveled outside of the country in past 3 weeks: No - Coronavirus Screening Are you exhibiting any of the following symptoms?: No Close contact with a COVID-19 positive Pt in past 14-21 Days: No - Review of Systems Constitutional: No Symptoms Eyes: No Symptoms Ears, Nose, & Throat: No Symptoms Respiratory: No Symptoms Cardiac: No Symptoms Abdominal/Gastrointestinal: No Symptoms Genitourinary Symptoms: No Symptoms Musculoskeletal: Back Pain Skin: No Symptoms Neurological: No Symptoms Psychological: No Symptoms Endocrine: No Symptoms Hematologic/Lymphatic: No Symptoms Immunological/Allergic: No Symptoms - Past Medical History Pertinent Past Medical History: Yes Neurological History: Seizures, Other Cardiac History: Hypertension Respiratory History: No Pertinent History Endocrine Medical History: No Pertinent History Musculoskeletal History: Osteoarthritis GI Medical History: No Pertinent History History: No Pertinent History Psycho-Social History: No Pertinent History Other Medical History: 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, VERTIGO, MENINGEAL TUMOR - Past Surgical History Past Surgical History: Yes Gastrointestinal: Appendectomy Musculoskeletal: Joint Replacement, Orthopedic Surgery Female Surgical History: Hysterectomy Other Surgical History: bilat tka, bilat rcr - Social History Smoking Status: Current every day smoker How long have you smoked: 52 yrs Exposure to second hand smoke: Yes Drug Use: none Patient Lives Alone: Yes Significant Family History: no pertinent family hx - Female History Hx Now: No - Nursing Vital Signs Nursing Vital Signs: Initial Vital Signs Temperature 98.3 F 05/28/20 13:33 Pulse Rate 63 05/28/20 13:33 Blood Pressure 161/71 05/28/20 13:33 O2 Sat by Pulse Oximetry 96 05/28/20 13:33 Pain Scale Pain Intensity [Lower Back] 10 Pain Intensity 6 - Physical Exam General Appearance: no apparent distress, alert Eye Exam: PERRL/EOMI, eyes nml inspection Ears, Nose, Throat Exam: normal ENT inspection, pharynx normal Neck Exam: normal inspection, non-tender, supple, full range of motion Respiratory Exam: normal breath sounds, lungs clear Cardiovascular Exam: regular rate/rhythm, normal heart sounds Gastrointestinal Exam: soft, normal bowel sounds, No tenderness Back Exam: normal inspection, vertebral tenderness (lumbar), decreased range of motion, muscle spasm, point tenderness, No CVA tenderness Extremity Exam: normal inspection, pelvis stable, limited range of motion, pedal edema, tenderness Neurologic Exam: alert, oriented x 3, cooperative, 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 Skin Exam: normal color SpO2 Interpretation: normal SpO2: 96 O2 Delivery: Room Air Ordered Tests: Active Orders 24 hr Category Date Time Status IV Insertion STAT Care 05/28/20 13:50 Active LUMBAR SPINE W/O [CT] Stat Exams 05/28/20 14:47 Taken CBC W DIFF Stat Lab 05/28/20 13:55 Completed CMP Stat Lab 05/28/20 13:55 Completed CULTURE,URINE Stat Lab 05/28/20 16:11 Received UA W/RFX UR CULTURE Stat Lab 05/28/20 16:11 Completed Transfer Order Routine Transfer 05/28/20 Ordered Medication Summary Generic Name Dose Route Start Last Admin Trade Name Freq PRN Reason Stop Dose Admin Ceftriaxone Sodium/Dextrose 1 g in 50 mls @ 100 mls/hr 05/28/20 16:53 Rocephin 1 Gm-D5w 50 Ml Bag IV 05/28/20 17:22 STAT STA Discontinued Medications Generic Name Dose Route Start Last Admin Trade Name Freq PRN Reason Stop Dose Admin Morphine Sulfate 4 mg 05/28/20 13:50 05/28/20 14:05 Morphine Sulfate 4 Mg Inj IV 05/28/20 13:51 4 mg STAT ONE Administration Morphine Sulfate Confirm 05/28/20 14:03 Morphine Sulfate 4 Mg Inj Administered 05/28/20 14:04 Dose 4 mg .ROUTE .STK-MED ONE Ondansetron HCl 4 mg 05/28/20 13:50 05/28/20 14:05 Zofran 4 Mg/2 Ml Vial IV 05/28/20 13:51 4 mg STAT ONE Administration Ondansetron HCl Confirm 05/28/20 14:03 Zofran 4 Mg/2 Ml Vial Administered 05/28/20 14:04 Dose 4 mg .ROUTE .STK-MED ONE Lab/Rad Data: Laboratory Result Diagrams 05/28/20 13:55 05/28/20 13:55 Laboratory Results 05/28/20 05/28/20 05/28/20 Range/Units 16:11 13:55 13:55 WBC 13.3 H (4.0-10.5) K/mm3 RBC 4.31 (4.1-5.4) M/mm3 Hgb 13.9 (12.0-16.0) gm/dl Hct 42.7 (35-47) % MCV 99.1 (78-100) fl MCH 32.3 H (26-32) pg MCHC 32.6 (32-36) g/dl RDW 13.6 (11.5-14.0) % Plt Count 176 (150-450) K/mm3 MPV 11.4 H (7.5-11.0) fl Gran % 84.7 H (36.0-66.0) % Eos # (Auto) 0.20 (0-0.5) Absolute Lymphs (auto) 1.03 (1.0-4.6) Absolute Monos (auto) 0.77 (0.0-1.3) Lymphocytes % 7.8 L (24.0-44.0) % Monocytes % 5.8 (0.0-12.0) % Eosinophils % 1.5 (0.00-5.0) % Basophils % 0.2 (0.0-0.4) % Absolute Granulocytes 11.27 H (1.4-6.9) Basophils # 0.02 (0-0.4) Sodium 138 (137-145) mmol/L Potassium 3.5 (3.5-5.1) mmol/L Chloride 103 (98-107) mmol/L Carbon Dioxide 32 H (22-30) mmol/L Anion Gap 6.4 (5-15) MEQ/L BUN 24 H (7-17) mg/dL Creatinine 0.61 (0.52-1.04) mg/dL Estimated GFR > 60.0 ML/MIN Glucose 109 H (74-106) mg/dL Calcium 10.0 (8.4-10.2) mg/dL Total Bilirubin 1.00 (0.2-1.3) mg/dL AST 25 (14-36) U/L ALT 11 (0-35) U/L Alkaline Phosphatase 84 (38-126) U/L Serum Total Protein 7.0 (6.3-8.2) g/dL Albumin 3.8 (3.5-5.0) g/dL Urine Color YELLOW (YELLOW) Urine Appearance SLIGHTLY CLOUDY (CLEAR) Urine pH 5.0 (5-6) Ur Specific Martin 1.030 (1.005-1.025) Urine Protein 30 (Negative) Urine Ketones TRACE (NEGATIVE) Urine Blood LARGE (0-5) Kenny/ul Urine Nitrite NEGATIVE (NEGATIVE) Urine Bilirubin NEGATIVE (NEGATIVE) Urine Urobilinogen 2 (0-1) mg/dL Ur Leukocyte Esterase NEGATIVE (NEGATIVE) Urine WBC (Auto) 6-10 (0-5) /HPF Urine RBC (Auto) 51-100 (0-2) /HPF U Hyaline Cast (Auto) 0-2 (0-2) /LPF U Epithel Cells (Auto) RARE (FEW) /HPF Urine Bacteria (Auto) RARE (NEGATIVE) /HPF Urine Mucus (Auto) SLIGHT (NEGATIVE) /HPF Urine Culture Reflexed YES (NO) Urine Glucose NEGATIVE (NEGATIVE) mg/dL - Progress Progress: improved, pain not gone completely Progress Note: 05/28/20 16:59 75 years old is evaluated for low back pain and some urinary symptoms. She is given symptomatic treatment for pain with morphine, on reevaluation feeling better. She does not have any cauda equina symptoms. She has chronic weakness in lower extremities which is not any worse than usual but has more pain in the low back. She has a CT abdomen pelvis done yesterday which was negative. I have obtained lumbar spine CT and is negative for any fracture subluxation. Has some spinal stenosis at L4/L5 level which I believe is chronic. She has intact sensations. She has a white count of 13, grossly unremarkable chemistries. She does have UTI and started on Rocephin. This could be the reason for her generalized weakness. I believe she would benefit with inpatient admission with pain medication, PT OT work-up and antibiotics. I have discussed with Dr. Spencer and patient is being admitted. Discussed with : Janet Will see patient in: hospital (full admit) Counseled pt/family regarding: lab results, diagnosis, rad results - Departure Departure Disposition: In-patient Admission Clinical Impression: Lumbar back pain, General weakness UTI (urinary tract infection) Qualifiers: Urinary tract infection type: site unspecified Hematuria presence: with hematuria Qualified Code(s): N39.0 - Urinary tract infection, site not specified; R31.9 - Hematuria, unspecified Condition: Stable Critical Care Time: No Referrals: MAGY SPENCER MD [Primary Care Provider] -
[2020-05-28 14:21] LABS: ALBUMIN 3.8 g/dL (3.5-5.0); ALKALINE PHOSPHATASE 84 U/L (38-126); ANION GAP 6.4 MEQ/L (5-15); BLOOD UREA NITROGEN 24 mg/dL (7-17); CHLORIDE 103 mmol/L (98-107); Carbon Dioxide 32 mmol/L (22-30); Creatinine 1 0.61 mg/dL (0.52-1.04); EST GLOMERULAR FILTRATION RATE > 60.0 ML/MIN; Glucose 109 mg/dL (74-106); Potassium 3.5 mmol/L (3.5-5.1); SGOT/AST 25 U/L (14-36); SGPT/ALT 11 U/L (0-35); SODIUM 138 mmol/L (137-145)
[2020-05-28 16:29] LABS: Appearance SLIGHTLY CLOUDY (CLEAR); Bacteria RARE /HPF (NEGATIVE); Bilirubin NEGATIVE (NEGATIVE); Blood LARGE Ery/ul (0-5); Epithelial Cells RARE /HPF (FEW); Glucose NEGATIVE (NEGATIVE); Hyaline Casts 0-2 /LPF (0-2); Ketones TRACE (NEGATIVE); Leukocyte Esterase NEGATIVE (NEGATIVE); Mucus SLIGHT /HPF (NEGATIVE); Nitrite NEGATIVE (NEGATIVE); Protein,Urine Dip 30 (Negative); RBC 51-100 /HPF (0-2); Urobilinogen 2 mg/dL (0-1)
[2020-05-28] MEDS ORDERED: ROCEPHIN 1 Gm-D5w 50 ml Bag** 1 G/50 ML IVPB IV STA (16:53)
[2020-05-28] MEDS ORDERED: ROCEPHIN 1 Gm-D5w 50 ml Bag** 1 G/50 ML IVPB IV ONE (17:24)
[2020-05-28] MEDS ORDERED: MORPHINE SULFATE 2 MG INJ IV PRN (18:12)
[2020-05-28] MEDS ORDERED: HUMALOG SQ PRN (18:12)
[2020-05-28] MEDS ORDERED: TYLENOL 325 MG PO PRN (18:12)
[2020-05-28] MEDS ORDERED: Zofran 4 MG/2 ML VIAL IV PRN (18:12)
[2020-05-28] MEDS ORDERED: DUONEB 0.5-3 MG/3 ml Neb IH PRN (18:12)
--- NOTE | 2020-05-28 18:15 | XRAY ---
Indication: Low back pain and bilateral hip pain following fall 5 days ago. Multiple contiguous axial images obtained through the lumbar spine. 2-dimensional sagittal and coronal reformatted images obtained. Comparison: CT abdomen/pelvis one earlier. Stable osteopenia and mild multilevel degenerative spondylosis again greatest at the L4-L5 level where there is spinal canal stenosis due to combination of broad-based disc bulge and bilateral degenerative facet hypertrophy. No acute fracture or suspicious bony lesions. Sagittal and coronal reformatted images again demonstrates normal lumbar alignment with vertebral body heights/disc spaces. No acute compression fracture or subluxation. CT abdomen/pelvis reported one day earlier. Impression: Stable osteopenia and multilevel degenerative spondylosis. Outpatient MRI may yield further information if there remains clinical concern. Comment: Preliminary interpretation was made by [facility]. No critical discrepancy.
[2020-05-28] MEDS ORDERED: NORCO 5/325 MG PO PRN (20:15)
[2020-05-28] MEDS: Naprosyn 500 MG PO SCH (22:54)
[2020-05-28] MEDS: Pepcid 20 MG VIAL IV SCH ×2 (22:54→23:10)
[2020-05-28] MEDS: ZOCOR 20MG PO SCH (22:54)
[2020-05-28] MEDS: KEPPRA 500 MG PO SCH (22:55)
[2020-05-28] MEDS: ceLEXa 20 MG PO SCH (22:55)
[2020-05-28] MEDS: Cyclobenzaprine 10 MG PO SCH (22:55)
[2020-05-29 06:33] LABS: Absolute Neutrophil Ct (ANC) 5.01 (1.4-6.9); BASOPHIL % 0.3 % (0.0-0.4); Basophil (Absolute #) 0.02 (0-0.4); Eosinophil % 4.5 % (0.00-5.0); Eosinophil (Absolute #) 0.35 (0-0.5); Hemoglobin 12.5 gm/dl (12.0-16.0); Lymphocyte (Absolute #) 1.62 (1.0-4.6); Lymphocytes % 20.8 % (24.0-44.0); Mean Cell Volume 99.2 fl (78-100); Mean Corpuscular Hemoglobin 31.8 pg (26-32); Mean Corpuscular Hgb Concent. 32.1 g/dl (32-36); Mean Platelet Volume 11.6 fl (7.5-11.0); Monocyte (Absolute #) 0.79 (0.0-1.3); Monocytes % 10.1 % (0.0-12.0); Neutrophil % 64.3 % (36.0-66.0); Platelet Count 171 K/mm3 (150-450); Red Blood Count 3.93 M/mm3 (4.1-5.4); Red Cell Distribution Width 13.5 % (11.5-14.0); White Blood Count 7.8 K/mm3 (4.0-10.5)
[2020-05-29 06:39] LABS: ALBUMIN 3.1 g/dL (3.5-5.0); ALKALINE PHOSPHATASE 72 U/L (38-126); ANION GAP 6.2 MEQ/L (5-15); BLOOD UREA NITROGEN 20 mg/dL (7-17); CHLORIDE 101 mmol/L (98-107); Calcium 9.3 mg/dL (8.4-10.2); Carbon Dioxide 31 mmol/L (22-30); Creatinine 1 0.54 mg/dL (0.52-1.04); EST GLOMERULAR FILTRATION RATE > 60.0 ML/MIN; Glucose 97 mg/dL (74-106); Potassium 3.4 mmol/L (3.5-5.1); SGOT/AST 19 U/L (14-36); SGPT/ALT 9 U/L (0-35); SODIUM 135 mmol/L (137-145)
[2020-05-29] MEDS: Naprosyn 500 MG PO SCH (09:28)
[2020-05-29] MEDS: Pepcid 20 MG VIAL IV SCH ×2 (09:34→22:34)
[2020-05-29] MEDS ORDERED: ROCEPHIN 1 Gm-D5w 50 ml Bag** 1 G/50 ML IVPB IV SCH (10:00)
[2020-05-29] MEDS: hydroDIURIL 25 MG PO SCH (11:21)
--- NOTE | 2020-05-29 11:40 | PCM.HP ---
History of Present Illness - Chief Complaint Chief Complaint: acute UTI History of Present Illness: is a 75 year old female who was in the ER 2 days ago with low back and difficulty ambulating, she feels the pain limits her poor functional status at baseline, she feels weak and overall doesn't feel safe at home. - Review of Systems Constitutional: Weakness, No Fever, No Chills Respiratory: No Cough, No Short Of Breath Cardiac: No Chest Pain, No Edema, No Syncope Genitourinary Symptoms: Frequency Musculoskeletal: Back Pain All Other Systems: Reviewed and Negative Medications & Allergies Home Medications: Home Medication List Levetiracetam [Keppra 500 mg ] 500 mg PO HS 06/20/16 [History Confirmed 05/28/20] Simvastatin 40 mg [Zocor 40 mg] 40 mg PO HS 06/20/16 [History Confirmed 05/28/20] Citalopram Hydrobromide [Citalopram HBr] 5 mg PO QHS 06/13/19 [History Confirmed 05/28/20] Alendronate Sodium 70 mg [Fosamax 70 MG] 70 mg PO Q7D@0600 05/27/20 [History Confirmed 05/28/20] Cyclobenzaprine HCl [Flexeril] 5 mg PO HS 05/27/20 [History Confirmed 05/28/20] Hydrocodone/APAP 5-325 Tab^^^ [[place] 5-325 Tablet^^^] 1 each PO Q4HPRN PRN #8 tablet MDD 6 05/27/20 [Rx Confirmed 05/28/20] Naproxen 500 mg PO BIDWM 05/27/20 [History Confirmed 05/28/20] hydroCHLOROthiazide [Hydrochlorothiazide] 25 mg PO DAILY 05/27/20 [History Confirmed 05/28/20] Allergies/Adverse Reactions: Allergies Allergy/AdvReac Type Severity Reaction Status Date / Time tetracycline Allergy Verified 05/28/20 13:37 metronidazole [From Flagyl] AdvReac Verified 05/28/20 13:37 - Past Medical History Past Medical History: Yes Neurological History: Seizures, Other Cardiac History: Hypertension Respiratory History: No Pertinent History Endocrine Medical History: No Pertinent History Musculoskelatal History: Osteoarthritis GI Medical History: No Pertinent History History: No Pertinent History Pyscho-Social History: No Pertinent History Comment: 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, VERTIGO, MENINGEAL TUMOR - Female History Are you now?: No - Past Surgical History Past Surgical History: Yes GI Surgical History: Appendectomy Musculskeletal Surgical Hx: Joint Replacement, Orthopedic Surgery Female Surgical History: Hysterectomy Other Surgical History: bilat tka, bilat rcr - Social History Smoking Status: Current every day smoker How long have you smoked: 52 yrs Exposure to second hand smoke: Yes Alcohol: None Drug Use: none Significant Family History: no pertinent family hx - Physical Exam Vital Signs: Vital Signs - 24 hr Temp Pulse Resp BP Pulse Ox 05/29/20 07:09 98.0 F 56 L 16 125/59 91 L 05/29/20 04:00 98.3 F 60 18 129/57 93 L 05/29/20 00:00 98.3 F 70 19 106/54 94 L 05/28/20 19:51 68 19 95 05/28/20 18:38 97.8 F 57 L 20 147/67 89 L 05/28/20 17:57 97.8 F 57 L 20 147/67 89 L 05/28/20 17:02 96 05/28/20 16:11 67 18 155/74 95 05/28/20 15:18 97.6 F 60 18 145/66 98 05/28/20 14:35 65 18 155/62 92 L 05/28/20 13:33 98.3 F 63 161/71 96 General Appearance: no apparent distress, obese Neurologic Exam: alert, oriented x 3 Respiratory Exam: normal breath sounds, lungs clear, No respiratory distress Cardiovascular Exam: regular rate/rhythm, normal heart sounds, normal peripheral pulses Gastrointestinal/Abdomen Exam: soft, normal bowel sounds, No tenderness, No mass Back Exam: other (scoliosis present) Extremity Exam: normal inspection, normal range of motion, pelvis stable Results - Labs Lab/Micro Results: Lab Results-Last 24 Hours 05/28/20 05/28/20 05/28/20 Range/Units 13:55 13:55 16:11 WBC 13.3 H (4.0-10.5) K/mm3 RBC 4.31 (4.1-5.4) M/mm3 Hgb 13.9 (12.0-16.0) gm/dl Hct 42.7 (35-47) % MCV 99.1 (78-100) fl MCH 32.3 H (26-32) pg MCHC 32.6 (32-36) g/dl RDW 13.6 (11.5-14.0) % Plt Count 176 (150-450) K/mm3 MPV 11.4 H (7.5-11.0) fl Gran % 84.7 H (36.0-66.0) % Eos # (Auto) 0.20 (0-0.5) Absolute Lymphs (auto) 1.03 (1.0-4.6) Absolute Monos (auto) 0.77 (0.0-1.3) Lymphocytes % 7.8 L (24.0-44.0) % Monocytes % 5.8 (0.0-12.0) % Eosinophils % 1.5 (0.00-5.0) % Basophils % 0.2 (0.0-0.4) % Absolute Granulocytes 11.27 H (1.4-6.9) Basophils # 0.02 (0-0.4) Sodium 138 (137-145) mmol/L Potassium 3.5 (3.5-5.1) mmol/L Chloride 103 (98-107) mmol/L Carbon Dioxide 32 H (22-30) mmol/L Anion Gap 6.4 (5-15) MEQ/L BUN 24 H (7-17) mg/dL Creatinine 0.61 (0.52-1.04) mg/dL Estimated GFR > 60.0 ML/MIN Glucose 109 H (74-106) mg/dL Calcium 10.0 (8.4-10.2) mg/dL Total Bilirubin 1.00 (0.2-1.3) mg/dL AST 25 (14-36) U/L ALT 11 (0-35) U/L Alkaline Phosphatase 84 (38-126) U/L Serum Total Protein 7.0 (6.3-8.2) g/dL Albumin 3.8 (3.5-5.0) g/dL Urine Color YELLOW (YELLOW) Urine Appearance SLIGHTLY CLOUDY (CLEAR) Urine pH 5.0 (5-6) Ur Specific [place] 1.030 (1.005-1.025) Urine Protein 30 (Negative) Urine Ketones TRACE (NEGATIVE) Urine Blood LARGE (0-5) Kenny/ul Urine Nitrite NEGATIVE (NEGATIVE) Urine Bilirubin NEGATIVE (NEGATIVE) Urine Urobilinogen 2 (0-1) mg/dL Ur Leukocyte Esterase NEGATIVE (NEGATIVE) Urine WBC (Auto) 6-10 (0-5) /HPF Urine RBC (Auto) 51-100 (0-2) /HPF U Hyaline Cast (Auto) 0-2 (0-2) /LPF U Epithel Cells (Auto) RARE (FEW) /HPF Urine Bacteria (Auto) RARE (NEGATIVE) /HPF Urine Mucus (Auto) SLIGHT (NEGATIVE) /HPF Urine Culture Reflexed YES (NO) Urine Glucose NEGATIVE (NEGATIVE) mg/dL 05/29/20 05/29/20 Range/Units 06:10 06:10 WBC 7.8 (4.0-10.5) K/mm3 RBC 3.93 L (4.1-5.4) M/mm3 Hgb 12.5 (12.0-16.0) gm/dl Hct 39.0 (35-47) % MCV 99.2 (78-100) fl MCH 31.8 (26-32) pg MCHC 32.1 (32-36) g/dl RDW 13.5 (11.5-14.0) % Plt Count 171 (150-450) K/mm3 MPV 11.6 H (7.5-11.0) fl Gran % 64.3 (36.0-66.0) % Eos # (Auto) 0.35 (0-0.5) Absolute Lymphs (auto) 1.62 (1.0-4.6) Absolute Monos (auto) 0.79 (0.0-1.3) Lymphocytes % 20.8 L (24.0-44.0) % Monocytes % 10.1 (0.0-12.0) % Eosinophils % 4.5 (0.00-5.0) % Basophils % 0.3 (0.0-0.4) % Absolute Granulocytes 5.01 (1.4-6.9) Basophils # 0.02 (0-0.4) Sodium 135 L (137-145) mmol/L Potassium 3.4 L (3.5-5.1) mmol/L Chloride 101 (98-107) mmol/L Carbon Dioxide 31 H (22-30) mmol/L Anion Gap 6.2 (5-15) MEQ/L BUN 20 H (7-17) mg/dL Creatinine 0.54 (0.52-1.04) mg/dL Estimated GFR > 60.0 ML/MIN Glucose 97 (74-106) mg/dL Calcium 9.3 (8.4-10.2) mg/dL Total Bilirubin 0.70 (0.2-1.3) mg/dL AST 19 (14-36) U/L ALT 9 (0-35) U/L Alkaline Phosphatase 72 (38-126) U/L Serum Total Protein 6.0 L (6.3-8.2) g/dL Albumin 3.1 L (3.5-5.0) g/dL Urine Color (YELLOW) Urine Appearance (CLEAR) Urine pH (5-6) Ur Specific [place] (1.005-1.025) Urine Protein (Negative) Urine Ketones (NEGATIVE) Urine Blood (0-5) Kenny/ul Urine Nitrite (NEGATIVE) Urine Bilirubin (NEGATIVE) Urine Urobilinogen (0-1) mg/dL Ur Leukocyte Esterase (NEGATIVE) Urine WBC (Auto) (0-5) /HPF Urine RBC (Auto) (0-2) /HPF U Hyaline Cast (Auto) (0-2) /LPF U Epithel Cells (Auto) (FEW) /HPF Urine Bacteria (Auto) (NEGATIVE) /HPF Urine Mucus (Auto) (NEGATIVE) /HPF Urine Culture Reflexed (NO) Urine Glucose (NEGATIVE) mg/dL Microbiology 05/28/20 16:11 Urine Culture - Preliminary Urine, Catheterized NO GROWTH TO DATE - Radiology Impressions Radiology Exams & Impressions: Radiology Procedures Category Date Time Status LUMBAR SPINE W/O [CT] Stat Exams 05/28/20 14:47 Completed - Other Procedures and Tests Respiratory Therapy 05/28/20 19:06 Smoking Cessation Education ONCE 05/28/20 20:02 Respiratory Therapy Assessment DAILY Assessment/Plan (1) UTI (urinary tract infection) Current Visit: Yes Status: Acute Qualifiers: Urinary tract infection type: site unspecified Hematuria presence: with hematuria Qualified Code(s): N39.0 - Urinary tract infection, site not specified; R31.9 - Hematuria, unspecified Assessment & Plan: on rocephin at this time Code(s): N39.0 - URINARY TRACT INFECTION, SITE NOT SPECIFIED (2) Lumbar back pain Current Visit: Yes Status: Acute Assessment & Plan: PT evaluate and treat, started on percocet. nothing acute or surgical on ct lumbar spine. would likely be a good candidate for rehab Code(s): M54.5 - LOW BACK PAIN (3) Hemiparesis Current Visit: Yes Status: Acute Code(s): G81.90 - HEMIPLEGIA, UNSPECIFIED AFFECTING UNSPECIFIED SIDE (4) General weakness Current Visit: Yes Status: Acute Code(s): R53.1 - WEAKNESS
[2020-05-29] MEDS: PERCOCET TABLET 5/325MG PO PRN (18:30)
[2020-05-29] MEDS: ZOCOR 20MG PO SCH (22:31)
[2020-05-29] MEDS: ceLEXa 20 MG PO SCH (22:31)
[2020-05-29] MEDS: Cyclobenzaprine 10 MG PO SCH (22:33)
[2020-05-29] MEDS: KEPPRA 500 MG PO SCH (22:34)
[2020-05-30 05:30] LABS: Absolute Neutrophil Ct (ANC) 6.56 (1.4-6.9); BASOPHIL % 0.2 % (0.0-0.4); Basophil (Absolute #) 0.02 (0-0.4); Eosinophil % 3.8 % (0.00-5.0); Eosinophil (Absolute #) 0.35 (0-0.5); Hematocrit 39.7 % (35-47); Hemoglobin 12.8 gm/dl (12.0-16.0); Lymphocyte (Absolute #) 1.42 (1.0-4.6); Lymphocytes % 15.3 % (24.0-44.0); Mean Cell Volume 98.8 fl (78-100); Mean Corpuscular Hemoglobin 31.8 pg (26-32); Mean Corpuscular Hgb Concent. 32.2 g/dl (32-36); Mean Platelet Volume 11.7 fl (7.5-11.0); Monocyte (Absolute #) 0.95 (0.0-1.3); Monocytes % 10.2 % (0.0-12.0); Neutrophil % 70.5 % (36.0-66.0); Platelet Count 179 K/mm3 (150-450); Red Blood Count 4.02 M/mm3 (4.1-5.4); Red Cell Distribution Width 13.6 % (11.5-14.0); White Blood Count 9.3 K/mm3 (4.0-10.5)
[2020-05-30 05:51] LABS: ANION GAP 6.7 MEQ/L (5-15); BLOOD UREA NITROGEN 21 mg/dL (7-17); CHLORIDE 99 mmol/L (98-107); Calcium 9.5 mg/dL (8.4-10.2); Carbon Dioxide 32 mmol/L (22-30); Creatinine 1 0.57 mg/dL (0.52-1.04); EST GLOMERULAR FILTRATION RATE > 60.0 ML/MIN; Glucose 106 mg/dL (74-106); SODIUM 134 mmol/L (137-145)
--- NOTE | 2020-05-30 08:38 | PCM.NOTE ---
Date and Time: 05/30/20 0834 Subjective Assessment: patient reports no improvement in her low back, continues to have radicular symptoms to both legs Objective Exam General Appearance: no apparent distress, alert, obese Skin Exam: normal color, warm, dry Respiratory Exam: normal breath sounds, lungs clear, No respiratory distress Cardiovascular Exam: regular rate/rhythm, normal heart sounds Gastrointestinal/Abdomen Exam: soft, No tenderness, No mass OBJECTIVE DATA Vital Signs: Vital Signs - 24 hr Temp Pulse Resp BP Pulse Ox 05/30/20 08:00 97.9 F 61 16 138/63 93 L 05/30/20 04:54 98.2 F 60 17 120/55 94 L 05/30/20 00:00 97.5 F 61 18 100/43 95 05/29/20 20:00 98.3 F 61 19 120/58 95 05/29/20 16:00 98.2 F 57 L 16 142/64 94 L 05/29/20 12:00 98.1 F 62 18 116/58 96 Pain Assessment - Last Documented Pain Intensity [Lower Back] 10 Pain Intensity 0 Pain Scale Used 0-10 Pain Scale Intake and Output: Intake & Output 05/27/20 05/28/20 05/29/20 05/30/20 11:59 11:59 11:59 11:59 Intake Total 1440 1580 Output Total 675 450 Balance 765 1130 Weight 82 kg Lab Results: Lab Results-Last 24 Hours 05/30/20 05/30/20 Range/Units 05:00 05:00 WBC 9.3 (4.0-10.5) K/mm3 RBC 4.02 L (4.1-5.4) M/mm3 Hgb 12.8 (12.0-16.0) gm/dl Hct 39.7 (35-47) % MCV 98.8 (78-100) fl MCH 31.8 (26-32) pg MCHC 32.2 (32-36) g/dl RDW 13.6 (11.5-14.0) % Plt Count 179 (150-450) K/mm3 MPV 11.7 H (7.5-11.0) fl Gran % 70.5 H (36.0-66.0) % Eos # (Auto) 0.35 (0-0.5) Absolute Lymphs (auto) 1.42 (1.0-4.6) Absolute Monos (auto) 0.95 (0.0-1.3) Lymphocytes % 15.3 L (24.0-44.0) % Monocytes % 10.2 (0.0-12.0) % Eosinophils % 3.8 (0.00-5.0) % Basophils % 0.2 (0.0-0.4) % Absolute Granulocytes 6.56 (1.4-6.9) Basophils # 0.02 (0-0.4) Sodium 134 L (137-145) mmol/L Potassium 4.0 (3.5-5.1) mmol/L Chloride 99 (98-107) mmol/L Carbon Dioxide 32 H (22-30) mmol/L Anion Gap 6.7 (5-15) MEQ/L BUN 21 H (7-17) mg/dL Creatinine 0.57 (0.52-1.04) mg/dL Estimated GFR > 60.0 ML/MIN Glucose 106 (74-106) mg/dL Calcium 9.5 (8.4-10.2) mg/dL Radiology Exams: Radiology Procedures Category Date Time Status LUMBAR SPINE W/O [CT] Stat Exams 05/28/20 14:47 Completed MRI L-SPINE WITHOUT CONTRAST [MRI] Routine Exams 05/30/20 08:32 Ordered Assessment/Plan (1) Lumbar back pain Current Visit: Yes Status: Acute Assessment & Plan: radicular symptoms and severe pain, not much improvement with percocet. plan MRI, if nothing surgical will need ecf placement for rehab/PT Code(s): M54.5 - LOW BACK PAIN (2) UTI (urinary tract infection) Current Visit: Yes Status: Acute Qualifiers: Urinary tract infection type: site unspecified Hematuria presence: with hematuria Qualified Code(s): N39.0 - Urinary tract infection, site not specified; R31.9 - Hematuria, unspecified Assessment & Plan: culture negative, d/c abx Code(s): N39.0 - URINARY TRACT INFECTION, SITE NOT SPECIFIED (3) Hemiparesis Current Visit: Yes Status: Acute Code(s): G81.90 - HEMIPLEGIA, UNSPECIFIED AFFECTING UNSPECIFIED SIDE (4) General weakness Current Visit: Yes Status: Acute Code(s): R53.1 - WEAKNESS
[2020-05-30] MEDS: Pepcid 20 MG VIAL IV SCH ×2 (09:26→21:35)
[2020-05-30] MEDS: hydroDIURIL 25 MG PO SCH (09:35)
[2020-05-30] MEDS ORDERED: FLUZONE HIGH-DOSE QUAD 2020-21 IM ONE (10:00)
[2020-05-30] MEDS: PERCOCET TABLET 5/325MG PO PRN ×3 (11:12→21:37)
--- NOTE | 2020-05-30 14:50 | XRAY ---
Indication: Pain down both legs. Status post fall 1 week ago. Sagittal and axial MRI lumbar spine performed using T1 and T2 weighted sequences. Comparison: None CT lumbar spine one day earlier documents 5 lumbar vertebral segments. Sagittal MRI images demonstrates normal lumbar alignment. There is minimal multilevel degenerative disc dehydration signal with minimal L3-L4 disc space narrowing. Minimal L3-S1 opposing endplate degenerative discogenic signal changes, Modic type II. There is a 7 mm inferior L3 vertebral hemangioma. No acute fracture, suspicious bony lesions, or abnormal bone marrow signal. Conus medullaris terminates at the L1 level. Sagittal images through the T12-L2 levels are unremarkable. Axial images at the L2-L3 levels negative for disc herniation, spinal canal, or foraminal stenosis. Facets are symmetric. At the L3-L4 level, there is bilateral foraminal narrowing right greater than left due to broad-based disc bulge. No central disc herniation or canal stenosis. Minimal bilateral degenerative facet and ligamentum flavum hypertrophy. At the L4-L5 level, there is spinal canal and bilateral foraminal narrowing due to combination of mild annular disc bulge, mild bilateral degenerative facet, and mild bilateral ligamentum flavum hypertrophy. Mean AP thecal sac diameter is 7 mm. At the L5-S1 level, there is bilateral foraminal stenosis left greater than right narrowing due to broad-based disc osteophyte complex and bilateral degenerative facet hypertrophy. Finding also produces impingement of the exiting left L5 nerve root. No central disc herniation or canal stenosis. Incidental incompletely visualized CT proven right renal parapelvic cyst. Impression: 1. Multilevel degenerative disc disease detailed level by level. Greatest extent seen at the L4-S1 levels. 2. Incidental tiny L3 vertebral hemangioma and right renal parapelvic cyst.
[2020-05-30] MEDS: Cyclobenzaprine 10 MG PO SCH (21:32)
[2020-05-30] MEDS: ZOCOR 20MG PO SCH (21:33)
[2020-05-30] MEDS: KEPPRA 500 MG PO SCH (21:33)
[2020-05-30] MEDS: ceLEXa 20 MG PO SCH (21:34)
[2020-05-31] MEDS: PERCOCET TABLET 5/325MG PO PRN ×2 (04:21→10:10)
--- NOTE | 2020-05-31 08:30 | PCM.NOTE ---
Date and Time: 05/31/20825 Subjective Assessment: Pt still c/o low back pain radiating to bilat LE. Says somewhat better than on admission. Received percocet x 2 yesterday and x 1 last night. PT worked with pt yesterday. - Review of Systems Constitutional: No Fever Musculoskeletal: No Back Pain Objective Exam General Appearance: mild distress (with movement), alert Neurologic Exam: oriented x 3, cooperative Skin Exam: normal color, warm, dry, No rash Respiratory Exam: normal breath sounds, lungs clear, No crackles/rales, No rhonchi, No wheezing Cardiovascular Exam: regular rate/rhythm, normal heart sounds, No murmur Gastrointestinal/Abdomen Exam: soft, normal bowel sounds, tenderness, No distention, No mass Extremity Exam: No pedal edema, No swelling Back Exam: normal inspection, other (lumbar spine nttp), No rash OBJECTIVE DATA Vital Signs: Vital Signs - 24 hr Temp Pulse Resp BP Pulse Ox 05/31/20 07:34 98.0 F 61 16 105/60 94 L 05/31/20 04:00 98.1 F 59 L 16 124/60 92 L 05/31/20 00:00 98.4 F 61 18 118/63 94 L 05/30/20 19:59 98.6 F 61 18 113/57 98 05/30/20 15:56 96.9 F 62 16 124/59 93 L 05/30/20 12:00 98.1 F 65 16 130/61 94 L Pain Assessment - Last Documented Pain Intensity [Lower Back] 10 Pain Intensity 4 Pain Scale Used 0-10 Pain Scale Intake and Output: Intake & Output 05/28/20 05/29/20 05/30/20 05/31/20 11:59 11:59 11:59 11:59 Intake Total 1440 1960 1196 Output Total 675 1700 625 Balance 765 260 571 Weight 82 kg Radiology Exams: Radiology Procedures Category Date Time Status MRI L-SPINE WITHOUT CONTRAST [MRI] Routine Exams 05/30/20 08:32 Completed Multi-Disciplinary Progress Notes: Multi-Disciplinary Progress Notes 05/30/20 09:59 Case Management Note by Bouchra Zamora FACESHEET TO XU TO CHECK FINANCIALS TO SEE IF PATIENT WILL QUALIFY FOR REHAB STAY COVERAGE Initialized on 05/30/20 09:59 - END OF NOTE Assessment/Plan (1) Lumbar back pain Current Visit: Yes Status: Acute Assessment & Plan: MRI nonacute/nonsurgical. Try adding lidoderm patch. Appreciate PT input regarding when pt will be ready to d/c to home. Code(s): M54.5 - LOW BACK PAIN (2) Hemiparesis Current Visit: Yes Status: Chronic Code(s): G81.90 - HEMIPLEGIA, UNSPECIFIED AFFECTING UNSPECIFIED SIDE (3) General weakness Current Visit: Yes Status: Acute Code(s): R53.1 - WEAKNESS
[2020-05-31] MEDS: Pepcid 20 MG VIAL IV SCH (09:08)
--- NOTE | 2020-05-31 09:31 | PCM.DS ---
Discharge Summary Date of Admission: 05/28/20 18:04 Admitting Physician: MAGY SPENCER Primary Care Provider: MAGY SPENCER Allergies Allergies tetracycline Allergy (Verified 05/28/20 13:37) metronidazole [From Flagyl] Adverse Reaction (Verified 05/28/20 13:37) PT REPORTS SEVERE WEAKNESS Hospital Summary - Hospital Course Hospital Course: Pt is a 75 yo female with hemiparesis who came in through ER c/o low back pain and weakness, not ambulating well at home. She was initially thought to have UTI but her UCx was negative. Her MRI showed multilevel degenerative disc degneration, nothing acute or surgical. She is still complaining of bilat lower back pain radiating into the buttocks bilat. She is able to get out of bed and walk to the bathroom. Will be discharged to home today with PT. - Vitals & Intake/Output Vital Signs: Vital Signs Temperature 98.0 F 05/31/20 07:34 Pulse Rate 61 05/31/20 07:34 Respiratory Rate 16 05/31/20 07:34 Blood Pressure 105/60 05/31/20 07:34 O2 Sat by Pulse Oximetry 94 L 05/31/20 07:34 Intake & Output: Intake & Output 05/28/20 05/29/20 05/30/20 05/31/20 11:59 11:59 11:59 11:59 Intake Total 1440 1960 1436 Output Total 675 1700 625 Balance 765 260 811 Weight 82 kg - Lab Result Diagrams: 05/30/20 05:00 05/30/20 05:00 Micro Results-Entire Visit: Microbiology 05/28/20 16:11 Urine Culture - Final Urine, Catheterized NO GROWTH - Radiology Exams Ordered Rad Exams-Entire Visit: Radiology Procedures Category Date Time Status MRI L-SPINE WITHOUT CONTRAST [MRI] Routine Exams 05/30/20 08:32 Completed - Procedures and Test Procedures and Tests throughout Hospitalization: Therapy Orders & Screens 05/28/20 19:06 OT Screen per Nursing Assess ONCE Comment: Protocol Order Physician Instructions: Greater than 3 points order OT Admission Screening Reason For Exam: Triggered on Admission Diagnosis: acute UTI Open Wound/Cellutlitis/Pressure Ulcers: No Acute Fx/ORIF/Change in wt bearing status: Yes Severe MUSCULOSKELETAL pain: No ADL Dysfunction: Yes Acute CVA w/Hemiparesis/Hemiplegia: No Decreased Functional Mobility/Strength: Yes Sprain/Strain: No Acute Post-op Mobility Dysfunction: No Total Points: 9 PT Screen per Nursing Assess ONCE Comment: Protocol Order Physician Instructions: Greater than 3 points order PT Admission Screenin Reason For Exam: Triggered on Admission Diagnosis: acute UTI Open Wound/Cellutlitis/Pressure Ulcers: No Acute Fx/ORIF/Change in wt bearing status: Yes Severe MUSCULOSKELETAL pain: No ADL Dysfunction: Yes Acute CVA w/Hemiparesis/Hemiplegia: No Decreased Functional Mobility/Strength: Yes Sprain/Strain: No Acute Post-op Mobility Dysfunction: No Total Points: 9 Smoking Cessation Education ONCE Comment: Diagnosis: acute UTI Smoking Status: Current every day smoker How long have you smoked: 52 yrs Approximately how many cigarettes per day: 1/2 PPD Do you dip or chew tobacco: No 05/28/20 20:02 Respiratory Therapy Assessment DAILY Comment: Diagnosis: acute UTI 05/29/20 09:57 PT Eval & Treat (MD Order) ONCE Reason for Eval:: weakness, difficulty ambulating, hemiparesis Diagnosis: acute UTI Discharge Exam General Appearance: mild distress (with movement), alert Neurologic Exam: oriented x 3, cooperative Eye Exam: eyes nml inspection Ears, Nose, Throat Exam: moist mucous membranes Neck Exam: normal inspection Respiratory Exam: normal breath sounds, lungs clear, No crackles/rales, No rhonchi, No wheezing Cardiovascular Exam: regular rate/rhythm, normal heart sounds, No murmur Gastrointestinal/Abdomen Exam: soft, normal bowel sounds, No tenderness, No distention Back Exam: normal inspection, other (spine nttp), No rash Final Diagnosis/Problem List - Final Discharge Diagnosis/Problem (1) Lumbar back pain Current Visit: Yes Status: Acute Assessment & Plan: Has improved. Will discharge to home today and f/u in 1 week; PT. Code(s): M54.5 - LOW BACK PAIN (2) Hemiparesis Current Visit: Yes Status: Chronic Code(s): G81.90 - HEMIPLEGIA, UNSPECIFIED AFFECTING UNSPECIFIED SIDE (3) General weakness Current Visit: Yes Status: Acute Code(s): R53.1 - WEAKNESS - Discharge Disposition: Home, Self-Care Condition: Stable Prescriptions: New Lidocaine HCl 5% Patch [Lidoderm Patch 5%] 1 patch TOP DAILY #10 patch Continue Levetiracetam [Keppra 500 mg ] 500 mg PO HS Simvastatin 40 mg [Zocor 40 mg] 40 mg PO HS Citalopram Hydrobromide [Citalopram HBr] 5 mg PO QHS Naproxen 500 mg PO BIDWM Alendronate Sodium 70 mg [Fosamax 70 MG] 70 mg PO Q7D@0600 hydroCHLOROthiazide [Hydrochlorothiazide] 25 mg PO DAILY Cyclobenzaprine HCl [Flexeril] 5 mg PO HS Hydrocodone/APAP 5-325 Tab^^^ [[place] 5-325 Tablet^^^] 1 each PO Q4HPRN PRN #8 tablet MDD 6 PRN Reason: Pain Follow up with: MAGY SPENCER MD [Primary Care Provider] - 1 Week
[2020-05-31] MEDS: hydroDIURIL 25 MG PO SCH (09:56)
[2020-05-31] MEDS ORDERED: Lidoderm Patch 5% TOP SCH (10:00)
[2020-05-31 13:28] VITALS: BP 122/58; PULSE 71; O2SAT 95
== END 2020-05-31 14:35 | disposition home or self-care (01) ==
LOC: ED 13:23 → UNDOADMIN 18:04 → INTOOBSV 18:04 → MED SURG 18:04
PROVIDERS: ADMIT Family Medicine; ATTEND Family Medicine
DX: M54.5 Low back pain (principal); N39.0 Urinary tract infection, site not specified; G81.90 Hemiplegia, unspecified affecting unspecified side; R53.1 Weakness; Z79.899 Other long term (current) drug therapy; Z87.820 Personal history of traumatic brain injury
CPT/HCPCS: 36000; 36415; 72131; 72148; 80048; 80053; 81001; 85025; 87086; 90662; 94760; 96374; 96375; 99285; G0008; G0378; J0696; J2270; J2405; 97110-GP; A9270-GY

== ENCOUNTER 2020-06-01 07:45 | Emergency (ER) | payer MEDICARE ==
[2020-06-01] MEDS ORDERED: Sodium Chloride 0.9% 1000 ML 1,000 ML IV STA (08:06)
[2020-06-01] MEDS ORDERED: Zofran 4 MG/2 ML VIAL IV ONE (08:06)
--- NOTE | 2020-06-01 08:18 | ERPHSYRPT ---
- History of Present Illness Time Seen by Provider: 06/01/20 08:13 Source: patient, EMS Exam Limitations: no limitations Patient Subjective Stated Complaint: pt here for weakness, she was dc from hospital yesterday for weakness,she also co pain to lower back and legs that is chronic for her Triage Nursing Assessment: pt arrived per ems, face in place, pt has weakness to left arm from an old accident, has brusiing to left hip. resp easy. Physician History: This is a 75-year-old white female patient of Dr. Spencer who was discharged from the hospital yesterday for weakness. Patient was in for 24-hour observation. Patient lives alone at home. Patient complains of back pain as well as bilateral lower extremity pain. Patient's legs would not allow her to walk this morning and patient ended up urinating on herself and lost control of her bowels. Patient has a history of hypertension. Patient complains of some suprapubic discomfort as well. Patient states her weakness is worse this morning and she has the associated bilateral lower extremity pain. Timing/Duration: day(s) (Worsening over several days), worse Severity: moderate Modifying Factors: Improves With: nothing Associated Symptoms: weakness, other (Loss of bowel and bladder control ) Allergies/Adverse Reactions: tetracycline Allergy (Verified 06/01/20 08:05) metronidazole [From Flagyl] Adverse Reaction (Verified 06/01/20 08:05) PT REPORTS SEVERE WEAKNESS Home Medications: Levetiracetam [Keppra 500 mg ] 500 mg PO HS 06/20/16 [History] Simvastatin 40 mg [Zocor 40 mg] 40 mg PO HS 06/20/16 [History] Citalopram Hydrobromide [Citalopram HBr] 5 mg PO QHS 06/13/19 [History] Alendronate Sodium 70 mg [Fosamax 70 MG] 70 mg PO Q7D@0600 05/27/20 [History] Cyclobenzaprine HCl [Flexeril] 5 mg PO HS 05/27/20 [History] Naproxen 500 mg PO BIDWM 05/27/20 [History] hydroCHLOROthiazide [Hydrochlorothiazide] 25 mg PO DAILY 05/27/20 [History] Hx Tetanus, Diphtheria Vaccination/Date Given: No Hx Influenza Vaccination/Date Given: No Hx Pneumococcal Vaccination/Date Given: Yes Immunizations Up to Date: Yes Travel Risk - International Travel Have you traveled outside of the country in past 3 weeks: No - Coronavirus Screening Are you exhibiting any of the following symptoms?: No Close contact with a COVID-19 positive Pt in past 14-21 Days: No - Review of Systems Constitutional: No Symptoms Eyes: No Symptoms Ears, Nose, & Throat: No Symptoms Respiratory: No Symptoms Cardiac: No Symptoms Abdominal/Gastrointestinal: No Symptoms Genitourinary Symptoms: Frequency Musculoskeletal: No Symptoms Skin: No Symptoms Neurological: No Symptoms Psychological: No Symptoms - Past Medical History Pertinent Past Medical History: Yes Neurological History: Seizures, Other Cardiac History: Hypertension Respiratory History: No Pertinent History Endocrine Medical History: No Pertinent History Musculoskeletal History: Osteoarthritis GI Medical History: No Pertinent History History: No Pertinent History Psycho-Social History: No Pertinent History Other Medical History: 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, VERTIGO, MENINGEAL TUMOR - Past Surgical History Past Surgical History: Yes Gastrointestinal: Appendectomy Musculoskeletal: Joint Replacement, Orthopedic Surgery Female Surgical History: Hysterectomy Other Surgical History: bilat tka, bilat rcr - Social History Smoking Status: Current every day smoker How long have you smoked: 52 yrs Exposure to second hand smoke: Yes Drug Use: none Patient Lives Alone: No Significant Family History: no pertinent family hx - Female History Hx Last Menstrual Period: psot - Nursing Vital Signs Nursing Vital Signs: Initial Vital Signs Temperature 98.0 F 06/01/20 08:08 Pulse Rate 68 06/01/20 08:08 Respiratory Rate 18 06/01/20 08:08 Blood Pressure 178/110 06/01/20 08:08 O2 Sat by Pulse Oximetry 96 06/01/20 08:08 Pain Scale Pain Intensity 0 - Physical Exam General Appearance: mild distress, alert, anxiety, obese Eye Exam: PERRL/EOMI, eyes nml inspection Ears, Nose, Throat Exam: normal ENT inspection, moist mucous membranes Neck Exam: normal inspection, non-tender, supple, full range of motion Respiratory Exam: normal breath sounds, lungs clear, airway intact, No chest tenderness, No respiratory distress Cardiovascular Exam: regular rate/rhythm, normal heart sounds, normal peripheral pulses Gastrointestinal/Abdomen Exam: soft, normal bowel sounds, No tenderness, No guarding Pelvic Exam: not done Rectal Exam: not done Back Exam: normal inspection, normal range of motion, No CVA tenderness, No vertebral tenderness Extremity Exam: normal inspection, normal range of motion, pelvis stable, tenderness Neurologic Exam: alert, oriented x 3, cooperative, normal mood/affect Skin Exam: normal color, warm, dry Lymphatic Exam: No adenopathy SpO2 Interpretation: normal SpO2: 96 O2 Delivery: Room Air - Course Nursing assessment & vital signs reviewed: Yes EKG Interpreted by Me: RATE ([id number]), Sinus Rhythm, NORMAL AXIS, NORMAL INTERVALS, NORMAL QRS, Other (The computer readout of the patient's EKG dated 06/01/2020 at 8:14 AM states there is minimal ST elevation in the anterior leads. I do not appreciate up on the EKG. We will check the patient's troponin and repeat EKG at 3 hours. Patient is not having any chest pain. There is not another EKG to co) Ordered Tests: Active Orders 24 hr Category Date Time Status EKG-ER Only STAT Care 06/01/20 08:22 Active EKG-ER Only STAT Care 06/01/20 09:12 Active IV Insertion STAT Care 06/01/20 08:06 Active AMYLASE Stat Lab 06/01/20 08:23 Completed CBC W DIFF Stat Lab 06/01/20 08:23 Completed CMP Stat Lab 06/01/20 08:23 Completed CULTURE,URINE Stat Lab 06/01/20 08:20 Received LIPASE Stat Lab 06/01/20 08:23 Completed Lactic Acid Stat Lab 06/01/20 08:06 Completed PROTIME WITH INR Stat Lab 06/01/20 08:23 Completed TROPONIN Q3H Lab 06/01/20 08:23 Completed TROPONIN Q3H Lab 06/01/20 11:30 Ordered TROPONIN Q3H Lab 06/01/20 14:30 Ordered TROPONIN Q3H Lab 06/01/20 17:30 Ordered TROPONIN Q3H Lab 06/01/20 20:30 Ordered UA W/RFX UR CULTURE Stat Lab 06/01/20 08:20 Completed Medication Summary Discontinued Medications Generic Name Dose Route Start Last Admin Trade Name Freq PRN Reason Stop Dose Admin Aspirin 324 mg 06/01/20 09:13 06/01/20 09:16 Baby Aspirin 81 Mg Chew PO 06/01/20 09:14 324 mg STAT ONE Administration Aspirin Confirm 06/01/20 09:13 Baby Aspirin 81 Mg Chew Administered 06/01/20 09:14 Dose 324 mg .ROUTE .STK-MED ONE Sodium Chloride 1,000 mls @ 999 mls/hr 06/01/20 08:06 06/01/20 09:40 Sodium Chloride 0.9% 1000 Ml IV 06/01/20 09:06 Infused .Q1H1M STA Infusion Sodium Chloride Confirm 06/01/20 08:25 Sodium Chloride 0.9% 1000 Ml Administered 06/01/20 08:26 Dose 1,000 mls @ ud .ROUTE .STK-MED ONE Ondansetron HCl 4 mg 06/01/20 08:06 06/01/20 08:26 Zofran 4 Mg/2 Ml Vial IV 06/01/20 08:07 4 mg STAT ONE Administration Ondansetron HCl Confirm 06/01/20 08:25 Zofran 4 Mg/2 Ml Vial Administered 06/01/20 08:26 Dose 4 mg .ROUTE .STK-MED ONE Lab/Rad Data: Laboratory Result Diagrams 06/01/20 08:23 06/01/20 08:23 Laboratory Results 06/01/20 06/01/20 06/01/20 Range/Units 08:23 08:23 08:23 WBC (4.0-10.5) K/mm3 RBC (4.1-5.4) M/mm3 Hgb (12.0-16.0) gm/dl Hct (35-47) % MCV (78-100) fl MCH (26-32) pg MCHC (32-36) g/dl RDW (11.5-14.0) % Plt Count (150-450) K/mm3 MPV (7.5-11.0) fl Gran % (36.0-66.0) % Eos # (Auto) (0-0.5) Absolute Lymphs (auto) (1.0-4.6) Absolute Monos (auto) (0.0-1.3) Lymphocytes % (24.0-44.0) % Monocytes % (0.0-12.0) % Eosinophils % (0.00-5.0) % Basophils % (0.0-0.4) % Absolute Granulocytes (1.4-6.9) Basophils # (0-0.4) PT 13.7 H (9.95-12.35) SECONDS INR 1.21 (0.8-3.0) Sodium 133 L (137-145) mmol/L Potassium 3.3 L (3.5-5.1) mmol/L Chloride 95 L (98-107) mmol/L Carbon Dioxide 33 H (22-30) mmol/L Anion Gap 7.8 (5-15) MEQ/L BUN 15 (7-17) mg/dL Creatinine 0.41 L (0.52-1.04) mg/dL Estimated GFR > 60.0 ML/MIN Glucose 128 H (74-106) mg/dL Lactic Acid (0.4-2.0) Calcium 10.0 (8.4-10.2) mg/dL Total Bilirubin 0.80 (0.2-1.3) mg/dL AST 33 (14-36) U/L ALT 13 (0-35) U/L Alkaline Phosphatase 97 (38-126) U/L Troponin I 0.383 H* (0.000-0.034) ng/mL Serum Total Protein 7.4 (6.3-8.2) g/dL Albumin 3.9 (3.5-5.0) g/dL Amylase 61 (30-110) U/L Lipase 24 (23-300) U/L Urine Color (YELLOW) Urine Appearance (CLEAR) Urine pH (5-6) Ur Specific [place] (1.005-1.025) Urine Protein (Negative) Urine Ketones (NEGATIVE) Urine Blood (0-5) Kenny/ul Urine Nitrite (NEGATIVE) Urine Bilirubin (NEGATIVE) Urine Urobilinogen (0-1) mg/dL Ur Leukocyte Esterase (NEGATIVE) Urine WBC (Auto) (0-5) /HPF Urine RBC (Auto) (0-2) /HPF U Epithel Cells (Auto) (FEW) /HPF Urine Bacteria (Auto) (NEGATIVE) /HPF Unidentified Crystals (NEGATIVE) /HPF Urine Culture Reflexed (NO) Urine Glucose (NEGATIVE) mg/dL 06/01/20 06/01/20 06/01/20 Range/Units 08:23 08:20 08:06 WBC 10.4 (4.0-10.5) K/mm3 RBC 4.40 (4.1-5.4) M/mm3 Hgb 14.1 (12.0-16.0) gm/dl Hct 42.2 (35-47) % MCV 95.9 (78-100) fl MCH 32.0 (26-32) pg MCHC 33.4 (32-36) g/dl RDW 12.9 (11.5-14.0) % Plt Count 208 (150-450) K/mm3 MPV 11.2 H (7.5-11.0) fl Gran % 82.7 H (36.0-66.0) % Eos # (Auto) 0.04 (0-0.5) Absolute Lymphs (auto) 0.93 L (1.0-4.6) Absolute Monos (auto) 0.82 (0.0-1.3) Lymphocytes % 8.9 L (24.0-44.0) % Monocytes % 7.9 (0.0-12.0) % Eosinophils % 0.4 (0.00-5.0) % Basophils % 0.1 (0.0-0.4) % Absolute Granulocytes 8.61 H (1.4-6.9) Basophils # 0.01 (0-0.4) PT (9.95-12.35) SECONDS INR (0.8-3.0) Sodium (137-145) mmol/L Potassium (3.5-5.1) mmol/L Chloride (98-107) mmol/L Carbon Dioxide (22-30) mmol/L Anion Gap (5-15) MEQ/L BUN (7-17) mg/dL Creatinine (0.52-1.04) mg/dL Estimated GFR ML/MIN Glucose (74-106) mg/dL Lactic Acid 0.9 (0.4-2.0) Calcium (8.4-10.2) mg/dL Total Bilirubin (0.2-1.3) mg/dL AST (14-36) U/L ALT (0-35) U/L Alkaline Phosphatase (38-126) U/L Troponin I (0.000-0.034) ng/mL Serum Total Protein (6.3-8.2) g/dL Albumin (3.5-5.0) g/dL Amylase (30-110) U/L Lipase (23-300) U/L Urine Color YELLOW (YELLOW) Urine Appearance SLIGHTLY CLOUDY (CLEAR) Urine pH 8.0 (5-6) Ur Specific [place] 1.009 (1.005-1.025) Urine Protein 30 (Negative) Urine Ketones NEGATIVE (NEGATIVE) Urine Blood MODERATE (0-5) Kenny/ul Urine Nitrite NEGATIVE (NEGATIVE) Urine Bilirubin NEGATIVE (NEGATIVE) Urine Urobilinogen NEGATIVE (0-1) mg/dL Ur Leukocyte Esterase NEGATIVE (NEGATIVE) Urine WBC (Auto) 11-15 (0-5) /HPF Urine RBC (Auto) 16-25 (0-2) /HPF U Epithel Cells (Auto) FEW (FEW) /HPF Urine Bacteria (Auto) FEW (NEGATIVE) /HPF Unidentified Crystals 25-50 (NEGATIVE) /HPF Urine Culture Reflexed YES (NO) Urine Glucose NEGATIVE (NEGATIVE) mg/dL - Progress Progress: re-examined Progress Note: 06/01/20 10:28 I just reexamined the patient. Patient continues not to have chest pain. She has no shortness of breath. 06/01/20 10:28 I also canceled the CAT scan of the abdomen pelvis. She just completed a CAT scan of her abdomen and pelvis 4 days ago. 06/01/20 11:11 Medical decision making: I repeated the EKG on 06/01/2020 at 920 2:50 AM the repeat EKG shows a normal sinus rhythm with a rate of 74. There is no evidence of any ST elevation. There is no other acute changes. There are ventricular premature trigger complexes present but few. Patient has been hemodynamically stable. She continues to have no chest pain. I did contact Dr. Spencer and because of the patient's elevated troponin he also recommends transferring the patient. I contacted Dr. Francisco Barrera at [facility]. He accepts the patient in transfer. I reviewed the patient history, condition, laboratory work-up, EKG findings with him. Discussed with : Janet Counseled pt/family regarding: lab results, diagnosis, need for follow-up - Departure Departure Disposition: Transfer Clinical Impression: Weakness, Bilateral lower extremity pain, Elevated troponin Condition: Stable Critical Care Time: Yes Critical Care Time(excluding separately billable procedures): Critical 30-74 mins Referrals: MAGY SPENCER MD [Primary Care Provider] -
[2020-06-01] MEDS ORDERED: Zofran 4 MG/2 ML VIAL ONE (08:25)
[2020-06-01] MEDS ORDERED: Sodium Chloride 0.9% 1000 ML 1,000 ML ONE (08:25)
[2020-06-01 08:32] LABS: Absolute Neutrophil Ct (ANC) 8.61 (1.4-6.9); BASOPHIL % 0.1 % (0.0-0.4); Basophil (Absolute #) 0.01 (0-0.4); Eosinophil % 0.4 % (0.00-5.0); Eosinophil (Absolute #) 0.04 (0-0.5); Hematocrit 42.2 % (35-47); Hemoglobin 14.1 gm/dl (12.0-16.0); Lymphocyte (Absolute #) 0.93 (1.0-4.6); Lymphocytes % 8.9 % (24.0-44.0); Mean Cell Volume 95.9 fl (78-100); Mean Corpuscular Hgb Concent. 33.4 g/dl (32-36); Mean Platelet Volume 11.2 fl (7.5-11.0); Monocyte (Absolute #) 0.82 (0.0-1.3); Monocytes % 7.9 % (0.0-12.0); Neutrophil % 82.7 % (36.0-66.0); Platelet Count 208 K/mm3 (150-450); Red Cell Distribution Width 12.9 % (11.5-14.0); White Blood Count 10.4 K/mm3 (4.0-10.5)
[2020-06-01 08:33] LABS: INR 1.21 (0.8-3.0); PROTIME 13.7 SECONDS (9.95-12.35)
[2020-06-01 08:42] LABS: Appearance SLIGHTLY CLOUDY (CLEAR); Bilirubin NEGATIVE (NEGATIVE); Blood MODERATE Ery/ul (0-5); Crystals Unidentified 25-50 /HPF (NEGATIVE); Glucose NEGATIVE (NEGATIVE); Ketones NEGATIVE (NEGATIVE); Leukocyte Esterase NEGATIVE (NEGATIVE); Nitrite NEGATIVE (NEGATIVE); Protein,Urine Dip 30 (Negative); Specific Gravity 1.009 (1.005-1.025); Urobilinogen NEGATIVE mg/dL (0-1)
[2020-06-01 08:44] LABS: Bacteria FEW /HPF (NEGATIVE); Epithelial Cells FEW /HPF (FEW)
[2020-06-01 08:49] LABS: ALBUMIN 3.9 g/dL (3.5-5.0); ALKALINE PHOSPHATASE 97 U/L (38-126); AMYLASE 61 U/L (30-110); ANION GAP 7.8 MEQ/L (5-15); BLOOD UREA NITROGEN 15 mg/dL (7-17); CHLORIDE 95 mmol/L (98-107); Carbon Dioxide 33 mmol/L (22-30); Creatinine 1 0.41 mg/dL (0.52-1.04); EST GLOMERULAR FILTRATION RATE > 60.0 ML/MIN; Glucose 128 mg/dL (74-106); LIPASE 24 U/L (23-300); Potassium 3.3 mmol/L (3.5-5.1); SGOT/AST 33 U/L (14-36); SGPT/ALT 13 U/L (0-35); SODIUM 133 mmol/L (137-145); Total Protein 7.4 g/dL (6.3-8.2)
[2020-06-01] MEDS ORDERED: BABY ASPIRIN 81 MG CHEW PO ONE (09:13)
[2020-06-01] MEDS ORDERED: BABY ASPIRIN 81 MG CHEW ONE (09:13)
[2020-06-01 10:29] VITALS: O2SAT 96
[2020-06-01 11:26] VITALS: BP 143/70; PULSE 73
== END 2020-06-01 11:56 | disposition short-term general hospital (02) ==
LOC: ED 07:45
DX: R53.1 Weakness (principal); M79.605 Pain in left leg; M79.604 Pain in right leg; R74.8 Abnormal levels of other serum enzymes; N39.46 Mixed incontinence; Z79.899 Other long term (current) drug therapy; G40.909 Epilepsy, unspecified, not intractable, without status epilepticus
CPT/HCPCS: 36000; 36415; 80053; 81001; 82150; 83605; 83690; 84484; 85025; 85610; 87086; 93005; 96360; 96374; 99285; 99291; J2405; A9270-GY

== ENCOUNTER 2020-12-28 15:29 | Emergency (ER) | payer MEDICARE ==
[2020-12-28] MEDS ORDERED: MORPHINE SULFATE 4 MG INJ IV ONE (16:04)
[2020-12-28] MEDS ORDERED: Zofran 4 MG/2 ML VIAL IV ONE (16:04)
[2020-12-28] MEDS ORDERED: Zofran 4 MG/2 ML VIAL ONE (16:32)
[2020-12-28] MEDS ORDERED: MORPHINE SULFATE 4 MG INJ ONE (16:33)
--- NOTE | 2020-12-28 16:43 | XRAY ---
Indication: General weakness. Comparison: November 12, 2019. Portable chest demonstrates new right infrahilar airspace disease without consolidation/large effusion. Remaining heart and left lung unremarkable. Bony thorax intact again with mild osteopenia and degenerative changes.
--- NOTE | 2020-12-28 16:45 | XRAY ---
Indication: Bilateral hip pain. No known injury. Comparison: Left hip February 25, 2020. 2 view left and right hip again demonstrates osteopenia, pelvic surgical clips, and small left superior acetabular spurring. No other bony, articular, or soft tissue abnormalities.
[2020-12-28 17:16] LABS: ALKALINE PHOSPHATASE 111 U/L (38-126); ANION GAP 7.4 MEQ/L (5-15); BLOOD UREA NITROGEN 18 mg/dL (7-17); CHLORIDE 101 mmol/L (98-107); Calcium 10.3 mg/dL (8.4-10.2); Carbon Dioxide 34 mmol/L (22-30); Creatinine 1 0.75 mg/dL (0.52-1.04); EST GLOMERULAR FILTRATION RATE > 60.0 ML/MIN; Glucose 87 mg/dL (74-106); Potassium 4.1 mmol/L (3.5-5.1); SGOT/AST 22 U/L (14-36); SGPT/ALT 11 U/L (0-35); SODIUM 139 mmol/L (137-145); Total Protein 7.2 g/dL (6.3-8.2)
--- NOTE | 2020-12-28 17:27 | ERPHSYRPT ---
- History of Present Illness Time Seen by Provider: 12/28/20 15:42 Source: patient, EMS Exam Limitations: no limitations Patient Subjective Stated Complaint: PT states "I was in [place] for for rehab and therapy and have been home since nov 06. I have been getting weaker and in more pain ever since. My left hip and knee hurt so bad that I can barely walk on it and my right hip black when I move." Triage Nursing Assessment: PT presented alert and oriented x 3, skin pwd pt able to move all extremeties, pt lower extremeties haave non pitting edema. Pt able to speak in clear full sentences. Pt extremely upset about her recent visit to [facility] about them not helping her. Physician History: 75 years old female with history of TBI as a child with left upper and lower extremity residual weakness, kyphoplasty last year who was at rehab until month and a half ago and is now having increasing pain left hip and knee. She does have history of left total knee replacement more than 20 years ago. Denies any fall. Patient reports moderate to severe sharp pain in the left hip whenever she tries to get up and ambulate and also pain in the knee. At times it becomes difficult to bear weight on the left lower extremity. She does have pain medications at home but does not like to take them. She was seen at [facility] last week with negative x-rays of hip and knee, patient was discharged with outpatient follow-up. She denies any chest pain palpitations or shortness of breath. No abdominal pain nausea or vomiting. Patient feels weak fatigued and tired with no energy to do her routine activities. Denies any fever or chills. Method of Injury: unknown Quality: sharpness Severity of Pain-Max: severe Severity of Pain-Current: moderate Lower Extremities Pain: hip: bilateral, knee: left Modifying Factors: Improves With: rest. Worsens With: movement Associated Symptoms: unable to bear weight Allergies/Adverse Reactions: capsaicin Allergy (Intermediate, Verified 12/28/20 15:43) Hives tetracycline Allergy (Verified 06/01/20 08:05) metronidazole [From Flagyl] Adverse Reaction (Verified 06/01/20 08:05) PT REPORTS SEVERE WEAKNESS Home Medications: Levetiracetam [Keppra 500 mg ] 500 mg PO HS 06/20/16 [History] Simvastatin 40 mg [Zocor 40 mg] 40 mg PO HS 06/20/16 [History] Citalopram Hydrobromide [Citalopram HBr] 5 mg PO QHS 06/13/19 [History] Cyclobenzaprine HCl [Flexeril] 2.5 mg PO TID 05/27/20 [History] Aspirin [Aspirin EC] 81 mg PO DAILY 12/28/20 [History] Bumetanide 0.5 mg PO DAILY 12/28/20 [History] Potassium Chloride 8 mg PO DAILY 12/28/20 [History] Hx Tetanus, Diphtheria Vaccination/Date Given: No Hx Influenza Vaccination/Date Given: Yes Hx Pneumococcal Vaccination/Date Given: Yes Immunizations Up to Date: Yes Travel Risk - International Travel Have you traveled outside of the country in past 3 weeks: No - Coronavirus Screening Are you exhibiting any of the following symptoms?: No Close contact with a COVID-19 positive Pt in past 14-21 Days: No - Vaccine Status Have you recieved a Covid-19 vaccination: Yes 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[employer] - Vaccination Dates Date of 2cond Vaccination (if applicable): 10/2020 - Review of Systems Constitutional: Fatigue Eyes: No Symptoms Ears, Nose, & Throat: No Symptoms Respiratory: No Symptoms Cardiac: No Symptoms Abdominal/Gastrointestinal: No Symptoms Genitourinary Symptoms: No Symptoms Musculoskeletal: Arthralgias, Back Pain, Joint Pain Skin: No Symptoms Neurological: No Symptoms Psychological: Anxiety Endocrine: No Symptoms Hematologic/Lymphatic: No Symptoms Immunological/Allergic: No Symptoms - Past Medical History Pertinent Past Medical History: Yes Neurological History: Seizures, Other Cardiac History: Hypertension Respiratory History: No Pertinent History Endocrine Medical History: No Pertinent History Musculoskeletal History: Osteoarthritis GI Medical History: No Pertinent History History: No Pertinent History Psycho-Social History: No Pertinent History Other Medical History: 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, VERTIGO, MENINGEAL TUMOR - Past Surgical History Past Surgical History: Yes Gastrointestinal: Appendectomy Musculoskeletal: Joint Replacement, Orthopedic Surgery Female Surgical History: Hysterectomy Other Surgical History: bilat tka, bilat rcr - Social History Smoking Status: Current every day smoker How long have you smoked: years Exposure to second hand smoke: Yes Drug Use: none Patient Lives Alone: Yes Significant Family History: no pertinent family hx - Nursing Vital Signs Nursing Vital Signs: Initial Vital Signs Temperature 98.6 F 12/28/20 15:35 Pulse Rate 80 12/28/20 15:35 Respiratory Rate 20 12/28/20 15:35 Blood Pressure 123/77 12/28/20 15:35 O2 Sat by Pulse Oximetry 99 12/28/20 15:35 Pain Scale Pain Intensity 2 - Physical Exam General Appearance: no apparent distress, alert Eyes, Ears, Nose, Throat Exam: normal ENT inspection, TMs normal, pharynx normal Neck Exam: normal inspection, non-tender, supple, full range of motion Cardiovascular/Respiratory Exam: chest non-tender, normal breath sounds, regular rate/rhythm Gastrointestinal/Abdominal Exam: non-tender, soft, no organomegaly Back Exam: normal inspection Hips Exam: right: non-tender, normal range of motion, left: limited range of motion, soft tissue tenderness, bilateral: normal inspection, no evidence of injury, pain Legs Exam: bilateral leg: non-tender, normal inspection, normal range of motion Knees Exam: bilateral knee: non-tender, no evidence of injury Ankle Exam: bilateral ankle: non-tender, normal inspection, normal range of motion, no evidence of injury Foot Exam: left foot: deformity (Foot drop) Neuro/Tendon Exam: normal sensation Mental Status Exam: alert, oriented x 3, cooperative Skin Exam: normal color SpO2 Interpretation: normal SpO2: 99 O2 Delivery: Room Air Ordered Tests: Active Orders 24 hr Category Date Time Status IV Insertion STAT Care 12/28/20 16:04 Active CHEST 1 VIEW (PORTABLE) Stat Exams 12/28/20 16:05 Completed HIP UMM (4V) INCL PELV IF DONE Stat Exams 12/28/20 16:32 Completed CBC W DIFF Stat Lab 12/28/20 16:50 Completed CMP Stat Lab 12/28/20 16:50 Completed MAG [MAGNESIUM] Stat Lab 12/28/20 16:50 Completed TROPONIN Q3H Lab 12/28/20 16:50 Completed TROPONIN Q3H Lab 12/28/20 19:15 Ordered TROPONIN Q3H Lab 12/28/20 22:15 Ordered TROPONIN Q3H Lab 12/29/20 01:15 Ordered TROPONIN Q3H Lab 12/29/20 04:15 Ordered UA W/RFX UR CULTURE Stat Lab 12/28/20 16:05 Ordered Medication Summary Discontinued Medications Generic Name Dose Route Start Last Admin Trade Name Freq PRN Reason Stop Dose Admin Morphine Sulfate 4 mg 12/28/20 16:04 12/28/20 16:46 Morphine Sulfate 4 Mg Inj IV 12/28/20 16:05 4 mg STAT ONE Administration Morphine Sulfate Confirm 12/28/20 16:33 Morphine Sulfate 4 Mg Inj Administered 12/28/20 16:34 Dose 4 mg .ROUTE .STK-MED ONE Ondansetron HCl 4 mg 12/28/20 16:04 12/28/20 16:46 Zofran 4 Mg/2 Ml Vial IV 12/28/20 16:05 4 mg STAT ONE Administration Ondansetron HCl Confirm 12/28/20 16:32 Zofran 4 Mg/2 Ml Vial Administered 12/28/20 16:33 Dose 4 mg .ROUTE .STK-MED ONE Lab/Rad Data: Laboratory Result Diagrams 12/28/20 16:50 12/28/20 16:50 Laboratory Results 12/28/20 12/28/20 12/28/20 Range/Units 16:50 16:50 16:50 WBC (4.0-10.5) K/mm3 RBC (4.1-5.4) M/mm3 Hgb (12.0-16.0) gm/dl Hct (35-47) % MCV (78-100) fl MCH (26-32) pg MCHC (32-36) g/dl RDW (11.5-14.0) % Plt Count (150-450) K/mm3 MPV (7.5-11.0) fl Gran % (36.0-66.0) % Eos # (Auto) (0-0.5) Absolute Lymphs (auto) (1.0-4.6) Absolute Monos (auto) (0.0-1.3) Lymphocytes % (24.0-44.0) % Monocytes % (0.0-12.0) % Eosinophils % (0.00-5.0) % Basophils % (0.0-0.4) % Absolute Granulocytes (1.4-6.9) Basophils # (0-0.4) Sodium 139 (137-145) mmol/L Potassium 4.1 (3.5-5.1) mmol/L Chloride 101 (98-107) mmol/L Carbon Dioxide 34 H (22-30) mmol/L Anion Gap 7.4 (5-15) MEQ/L BUN 18 H (7-17) mg/dL Creatinine 0.75 (0.52-1.04) mg/dL Estimated GFR > 60.0 ML/MIN Glucose 87 (74-106) mg/dL Calcium 10.3 H (8.4-10.2) mg/dL Magnesium 1.9 (1.6-2.3) mg/dL Total Bilirubin 0.40 (0.2-1.3) mg/dL AST 22 (14-36) U/L ALT 11 (0-35) U/L Alkaline Phosphatase 111 (38-126) U/L Troponin I < 0.012 (0.000-0.034) ng/mL Serum Total Protein 7.2 (6.3-8.2) g/dL Albumin 4.0 (3.5-5.0) g/dL 12/28/20 Range/Units 16:50 WBC 8.9 (4.0-10.5) K/mm3 RBC 4.29 (4.1-5.4) M/mm3 Hgb 13.5 (12.0-16.0) gm/dl Hct 41.7 (35-47) % MCV 97.2 (78-100) fl MCH 31.5 (26-32) pg MCHC 32.4 (32-36) g/dl RDW 13.6 (11.5-14.0) % Plt Count 259 (150-450) K/mm3 MPV 11.0 (7.5-11.0) fl Gran % 75.9 H (36.0-66.0) % Eos # (Auto) 0.14 (0-0.5) Absolute Lymphs (auto) 1.27 (1.0-4.6) Absolute Monos (auto) 0.71 (0.0-1.3) Lymphocytes % 14.3 L (24.0-44.0) % Monocytes % 8.0 (0.0-12.0) % Eosinophils % 1.6 (0.00-5.0) % Basophils % 0.2 (0.0-0.4) % Absolute Granulocytes 6.76 (1.4-6.9) Basophils # 0.02 (0-0.4) Sodium (137-145) mmol/L Potassium (3.5-5.1) mmol/L Chloride (98-107) mmol/L Carbon Dioxide (22-30) mmol/L Anion Gap (5-15) MEQ/L BUN (7-17) mg/dL Creatinine (0.52-1.04) mg/dL Estimated GFR ML/MIN Glucose (74-106) mg/dL Calcium (8.4-10.2) mg/dL Magnesium (1.6-2.3) mg/dL Total Bilirubin (0.2-1.3) mg/dL AST (14-36) U/L ALT (0-35) U/L Alkaline Phosphatase (38-126) U/L Troponin I (0.000-0.034) ng/mL Serum Total Protein (6.3-8.2) g/dL Albumin (3.5-5.0) g/dL - Progress Progress: improved, pain not gone completely, re-examined Progress Note: 12/28/20 19:09 75 years old is evaluated for worsening left hip pain. She has a chronic pain in the hip and knee. She has a chronic weakness in the left side from her TBI as a child. She is given pain medications. She does not have any new weakness, fall or trauma to the left lower extremity. I have obtained x-rays which showed small spur in the left hip with some arthritic changes which could be causing her pain. She does not have any fracture dislocation. Baseline work-up otherwise is negative. Chest x-ray showed some airspace disease but patient is maintaining oxygen saturation around 96% on room air with no signs of respiratory compromise. Do not think she needs antibiotic and or any other further work-up. Patient does have pain medication at home but does not take it as she is worried about getting addicted to them. She is advised to take them only as needed and use walker for ambulation. She is also advised to follow-up with her orthopedic surgeon Dr. Jack for reevaluation. At this point I do not think she needs any further work-up and is stable for discharge with outpatient follow-up. Counseled pt/family regarding: lab results, diagnosis, need for follow-up, rad results - Departure Departure Disposition: Home Clinical Impression: General weakness Hip pain, acute Qualifiers: Laterality: left Qualified Code(s): M25.552 - Pain in left hip Condition: Stable Critical Care Time: No Referrals: MAGY SPENCER MD [Primary Care Provider] - Follow Up with PCP/3 days MOHINI JACK [ACTIVE STAFF] - Follow Up with PCP/3 days Instructions: Hip Pain (DC) Additional Instructions: Use walker all the time for ambulation. Use pain medication which you have at home as recommended. Follow-up with your primary care and orthopedic surgeon for reevaluation. Return to ER for worsening pain, inability to bear any weight, fall etc.
[2020-12-28 17:39] LABS: Absolute Neutrophil Ct (ANC) 6.76 (1.4-6.9); BASOPHIL % 0.2 % (0.0-0.4); Basophil (Absolute #) 0.02 (0-0.4); Eosinophil % 1.6 % (0.00-5.0); Eosinophil (Absolute #) 0.14 (0-0.5); Hematocrit 41.7 % (35-47); Hemoglobin 13.5 gm/dl (12.0-16.0); Lymphocyte (Absolute #) 1.27 (1.0-4.6); Lymphocytes % 14.3 % (24.0-44.0); Mean Cell Volume 97.2 fl (78-100); Mean Corpuscular Hemoglobin 31.5 pg (26-32); Mean Corpuscular Hgb Concent. 32.4 g/dl (32-36); Monocyte (Absolute #) 0.71 (0.0-1.3); Neutrophil % 75.9 % (36.0-66.0); Platelet Count 259 K/mm3 (150-450); Red Blood Count 4.29 M/mm3 (4.1-5.4); Red Cell Distribution Width 13.6 % (11.5-14.0); White Blood Count 8.9 K/mm3 (4.0-10.5)
[2020-12-28 19:08] VITALS: O2SAT 99
[2020-12-28 20:38] VITALS: BP 110/64; PULSE 70
== END 2020-12-28 20:05 | disposition home or self-care (01) ==
LOC: ED 15:29
DX: R53.1 Weakness (principal); M25.552 Pain in left hip
CPT/HCPCS: 36415; 71045; 73522; 80053; 83735; 84484; 85025; 96374; 96375; 99284; J2270; J2405

== ENCOUNTER 2025-05-06 07:55 | Observation (INO) | payer MEDICARE, OTHER ==
--- NOTE | 2025-05-06 08:01 | ERPHSYRPT ---
- History of Present Illness Time Seen by Provider: 05/06/25 08:01 Source: patient, EMS, old records Exam Limitations: no limitations Physician History: This is a morbidly obese 80-year-old white female patient of Dr. Spencer brought to the emergency department by the steel fixer service and is on Xarelto and aspirin with the complaint of head injury, right wrist pain, left foot and ankle pain. Patient fell early this morning and called the steel fixer service for lift assistance only. She called the steel fixer service again because her scalp was bleeding as well as her feeling more pain in her right wrist and left foot and ankle. Patient ordinarily uses a walker to aid in ambulation. However because of the pain in her left foot and ankle, she is unable to stand. Patient lives alone. 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 She also has a history of hypertension. She smokes tobacco cigarettes daily. Patient denies loss of consciousness. Occurred: this morning Injuries/Pain Location: head, upper extremity (Right wrist), lower extremity (Left foot and ankle) Loss of Consciousness: no loss of consciousness Quality: aching Severity of Pain-Max: moderate Severity of Pain-Current: moderate Modifying Factors: Improves With: movement, other (Patient unable to stand) Associated Symptoms (Fall): extremity injury (Right wrist and left foot and ankle), No chest pain, No seizures, No shortness of breath, No vomiting, No vision changes Allergies/Adverse Reactions: capsaicin Allergy (Intermediate, Verified 12/28/20 15:43) Hives tetracycline Allergy (Verified 06/01/20 08:05) metronidazole [From Flagyl] Adverse Reaction (Verified 06/01/20 08:05) PT REPORTS SEVERE WEAKNESS Home Medications: Levetiracetam [Keppra] 500 mg PO HS 06/20/16 [History] Simvastatin 40 mg [Zocor 40 mg] 40 mg PO HS 06/20/16 [History] Citalopram Hydrobromide [Citalopram HBr] 5 mg PO HS 06/13/19 [History] Bumetanide 0.5 mg PO DAILY 12/28/20 [History] Cyanocobalamin (Vitamin B-12) [Vitamin B12] 1,000 mcg PO DAILY 05/06/25 [History] Rivaroxaban [Xarelto] 2.5 mg PO BID 05/06/25 [History] Hx Tetanus, Diphtheria Vaccination/Date Given: No Hx Influenza Vaccination/Date Given: Yes Hx Pneumococcal Vaccination/Date Given: Yes Travel Risk - International Travel Have you traveled outside of the country in past 3 weeks: No - Emerging Infectious Disease Are you exhibiting symptoms associated with any current EIDs: No - Review of Systems Constitutional: No Symptoms Eyes: No Symptoms Ears, Nose, & Throat: No Symptoms Respiratory: No Symptoms Cardiac: No Symptoms Abdominal/Gastrointestinal: No Symptoms Genitourinary Symptoms: No Symptoms Musculoskeletal: Fall, Injury (Right wrist and left foot and ankle) Skin: Other (Skin laceration right parietal region) Neurological: No Symptoms Psychological: No Symptoms Endocrine: No Symptoms Hematologic/Lymphatic: No Symptoms Immunological/Allergic: No Symptoms All Other Systems: Reviewed and Negative - Past Medical History Pertinent Past Medical History: Yes Neurological History: Seizures, Other Cardiac History: Hypertension Respiratory History: No Pertinent History Endocrine Medical History: No Pertinent History Musculoskeletal History: Osteoarthritis GI Medical History: No Pertinent History History: No Pertinent History Psycho-Social History: No Pertinent History Other Medical History: 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, VERTIGO, MENINGEAL TUMOR - Past Surgical History Past Surgical History: Yes Gastrointestinal: Appendectomy Musculoskeletal: Joint Replacement, Orthopedic Surgery Female Surgical History: Hysterectomy Other Surgical History: bilat tka, bilat rcr Significant Family History: no pertinent family hx - Social History Smoking Status: Current every day smoker How long have you smoked: years Exposure to second hand smoke: Yes Drug Use: none Patient Lives Alone: Yes - Nursing Vital Signs Nursing Vital Signs: Initial Vital Signs Temperature 97.3 F 05/06/25 07:55 Pulse Rate 78 05/06/25 07:55 Respiratory Rate 16 05/06/25 07:55 Blood Pressure 102/77 05/06/25 07:55 O2 Sat by Pulse Oximetry 97 05/06/25 07:55 Pain Scale Pain Intensity 4 - Bethany Coma Score Best Eye Response (Dionna): (4) open spontaneously Best Verbal Response (Dionna): (5) oriented Best Motor Response (Dionna): (6) obeys commands Bethany Total: 15 - Physical Exam General Appearance: no apparent distress, alert, obese Head Injury: lacerations (Right parietal scalp skin laceration), swelling, tenderness Eye Exam: PERRL/EOMI, eyes nml inspection ENT Exam: airway nml Neck Exam: supple, trachea midline, full range of motion, normal alignment, normal inspection Respiratory/Chest Exam: normal breath sounds, No chest tenderness, No respiratory distress, No ecchymosis, No crepitus Cardiovascular Exam: normal heart sounds, regular rate/rhythm, normal peripheral pulses Gastrointestinal Exam: soft, normal bowel sounds, No tenderness, No guarding, No rebound Rectal Exam: not done Back Exam: normal inspection, normal range of motion, No CVA tenderness, No vertebral tenderness Extremity Exam: pelvis stable, deformities (? Left ankle), pain with movement (Right wrist, left foot and ankle), swelling (Left foot and ankle), tenderness (Right wrist, left foot and left ankle), No hip tenderness Neurologic Exam: alert, oriented x 3, cooperative, certified coder II-XII nml as tested, normal mood/affect, sensation nml Skin Exam: laceration (Skin laceration right parietal scalp) SpO2 Interpretation: normal O2 Delivery: Room Air Procedures - Laceration/Wound Repair Right Parietal Time of Procedure: 08:20 Wound Location: Right, head (Radial) Wound Length (cm): 1 Wound's Depth, Shape: superficial, linear, contused tissue Wound Explored: clean (Wound explored to the base in a bloodless field. No foreign body present) Irrigated: Yes Hibiclens Prep: Yes Wound Repaired With: [place] (2 skin yesy placed) Progress: 05/06/25 08:27 There were no complications. Patient tolerated the procedure well - Course Nursing assessment & vital signs reviewed: Yes Ordered Tests: Active Orders 24 hr Category Date Time Status ANKLE (3 VIEWS) Stat Exams 05/06/25 08:18 Completed CERVICAL SPINE WO CONTRAST [CT] Stat Exams 05/06/25 08:16 Completed FOOT (MINIMUM 3 VIEWS) Stat Exams 05/06/25 08:18 Completed HEAD WITHOUT CONTRAST [CT] Stat Exams 05/06/25 08:16 Completed WRIST (MIN 3 VIEWS) Stat Exams 05/06/25 08:19 Completed CBC W DIFF Stat Lab 05/06/25 09:50 Completed CMP Stat Lab 05/06/25 09:50 Completed PROTIME WITH INR Stat Lab 05/06/25 09:50 Completed Lab/Rad Data: Laboratory Result Diagrams 05/06/25 09:50 08/28/25 09:50 Laboratory Results 05/06/25 05/06/25 05/06/25 Range/Units 09:50 09:50 09:50 WBC 12.8 H (3.98-10.04) x10^3/uL RBC 4.63 (3.93-5.22) x10^6/uL Hgb 15.0 (11.2-15.7) g/dL Hct 45.0 H (34.1-44.9) % MCV 97.2 H (79.4-94.8) fL MCH 32.4 H (25.6-32.2) pg MCHC 33.3 (32.2-35.5) g/dL RDW 13.2 (11.7-14.4) % Plt Count 210 (182-369) x10^3/uL MPV 10.9 (9.4-12.3) fL Gran % 84.7 H (34.0-71.1) % Immature Gran % (Auto) 0.4 (0.001-0.429) % Nucleat RBC Rel Count 0.0 (0.00-0.2) % Eos # (Auto) 0.03 L (0.04-0.36) x10^3/uL Immature Gran # (Auto) 0.05 H (0.001-0.031) x10^3u/L Absolute Lymphs (auto) 1.03 L (1.18-3.74) x10^3/uL Absolute Monos (auto) 0.84 (0.24-0.86) x10^3/uL Absolute Nucleated RBC 0.00 (0.00-0.012) x10^3u/L Lymphocytes % 8.0 L (19.3-51.7) % Monocytes % 6.5 (4.7-12.5) % Eosinophils % 0.2 L (0.7-5.8) % Basophils % 0.2 (0.1-1.2) % Absolute Granulocytes 10.86 H (1.56-6.13) x10^3/uL Basophils # 0.03 (0.01-0.08) x10^3/uL PT 11.3 (9.4-12.5) SECONDS INR 1.04 (0.8-3.0) Sodium 136 (135-145) mmol/L Potassium 4.2 (3.5-5.1) mmol/L Chloride 100 (98-107) mmol/L Carbon Dioxide 27 (22-30) mmol/L Anion Gap 13.3 (5-15) MEQ/L BUN 19 H (7-17) mg/dL Creatinine 0.78 (0.52-1.04) mg/dL Estimated GFR 77.2 ML/MIN Glucose 128 H (74-106) mg/dL Calcium 10.3 H (8.4-10.2) mg/dL Total Bilirubin 0.60 (0.2-1.3) mg/dL AST 21 (14-36) U/L ALT 12 (0-35) U/L Alkaline Phosphatase 109 (38-126) U/L Serum Total Protein 7.2 (6.3-8.2) g/dL Albumin 4.0 (3.5-5.0) g/dL - Progress Progress: improved, pain not gone completely, re-examined Progress Note: 05/06/25 08:27 My medical decision making and the assignment of moderate complexity to this patient's medical issue today is based on review of the patient's past medical history, review the patient's medication list, review the patient drug allergy list, history present illness and physical findings on examination. The workup in this patient includes CT scan of the head and neck, both without contrast, x- ray of the patient's right wrist and left foot and ankle, CBC, CMP, PT/INR. Differential diagnosis includes but is not limited to scalp laceration, acute intracranial abnormality, right wrist fracture/dislocation, right wrist sprain, left foot and ankle sprain, left foot and ankle fracture/dislocation 05/06/25 10:38 The following radiographic study preliminary reports interpreted by me: Right wrist shows no acute fracture or dislocation Left foot shows no acute fracture or dislocation Left ankle shows no acute fracture or dislocation. The radiologist interpreted the final reports of the following plain x-rays: Right wrist x-ray shows no acute, bony, articular or soft tissue abnormalities. There are chronic degenerative changes present Left foot x-ray shows remote left fourth metatarsal head fracture. Left heel spur. No bony, articular or soft tissue abnormality Left ankle shows soft tissue swelling but no other bony or articular abnormalities 05/06/25 10:[address] scan of the head without contrast was interpreted by the radiologist and I reviewed the impression. The impression states stable right craniotomy with underlying encephalomalacia and remote left thalamic lacunar infarct. New right parietal lobe swelling with cutaneous yesy. No new intracranial abnormalities. C-spine without contrast is negative for acute fracture or subluxation. There is multilevel degenerative spondylosis. There is bilateral carotid calcifications 05/06/25 11:07 Spoke with the patient. Patient has no help at home. She cannot bear weight. We will contact the hospitalist and placed this patient in observation, obtain physical therapy as well as obtaining discharge planning for possible short-term care facility placement 05/06/25 11:13 I interpreted the patient's laboratory data results. The laboratory data shows leukocytosis. No other acute, emergent medical issues based on the laboratory data results I did speak with telehospitalist, Dr. Garcia and I reviewed the patient's chief complaint, physical findings on examination and workup results. I also reviewed the patient's past medical history. We will place this patient in observation and obtain physical therapy consultation as well as discharge planning for short-term alf placement if indicated Counseled pt/family regarding: lab results, diagnosis, need for follow-up, rad results Medical Desision Making - Independent Historian Additional History obtained from: Rn Child/EMT - Discussion of managment Care discussed with:: hospitalist Reviewed:: Test results, Need for additional workup Agreed on:: place in obs Will see patient: in hospital - Diagnostic Testing Diagnostic test were ordered, analyzed, and reviewed by me: Yes Radiological Interpretation: Interpreted by me, Reviewed by me, Teleradiologist Report - Risk of complications The pt has a high risk of morbidity or mortality based on: Decision regarding hospitilization or escalation of hosp level of care - Departure Departure Disposition: Observation Clinical Impression: Fall with no significant injury, Scalp laceration, Left ankle sprain Condition: Stable Critical Care Time: No Referrals: MAGY SPENCER MD [Primary Care Provider, [facility]] - Follow up/PCP as directed
--- NOTE | 2025-05-06 09:34 | XRAY ---
Indication: Fall injury. Comparison: None 3 view right wrist demonstrates osteopenia, radiocarpal degenerative joint space narrowing, ulnar carpal degenerative chondrocalcinosis, and mild/moderate 1st metacarpal multangular scaphoid degenerative changes. No acute bony, articular, or soft tissue abnormalities.
--- NOTE | 2025-05-06 09:36 | XRAY ---
Indication: Fall injury. Comparison: None 3 nonweightbearing views left foot demonstrates osteopenia, mild 1st MTP degenerative changes with mild bunion deformity, remote 4th metatarsal head fracture, and tiny posterior/small plantar heel spurs. No other bony, articular, or soft tissue abnormalities.
--- NOTE | 2025-05-06 09:36 | XRAY ---
Indication: Fall injury. Comparison: None 3 view left ankle demonstrates osteopenia, tiny posterior/small plantar heel spurs, and diffuse ankle soft tissue swelling. No other bony, articular, or soft tissue abnormalities.
[2025-05-06 10:07] LABS: BASOPHIL % 0.2 % (0.1-1.2); Basophil (Absolute #) 0.03 x10^3/uL (0.01-0.08); Eosinophil (Absolute #) 0.03 x10^3/uL (0.04-0.36); Hematocrit 45.0 % (34.1-44.9); Hemoglobin 15.0 g/dL (11.2-15.7); IMMATURE GRAN # 0.05 x10^3u/L (0.001-0.031); IMMATURE GRAN % 0.4 % (0.001-0.429); Lymphocyte (Absolute #) 1.03 x10^3/uL (1.18-3.74); Mean Corpuscular Hemoglobin 32.4 pg (25.6-32.2); Mean Corpuscular Hgb Concent. 33.3 g/dL (32.2-35.5); Monocyte (Absolute #) 0.84 x10^3/uL (0.24-0.86); NUCLEATED RBC # 0.00 x10^3u/L (0.00-0.012); NUCLEATED RBC % 0.0 % (0.00-0.2); Platelet Count 210 x10^3/uL (182-369); Red Blood Count 4.63 x10^6/uL (3.93-5.22); White Blood Count 12.8 x10^3/uL (3.98-10.04)
[2025-05-06 10:20] LABS: Calcium 10.3 mg/dL (8.4-10.2); Carbon Dioxide 27.0 mmol/L (22-30); Creatinine 1 0.78 mg/dL (0.52-1.04); EST GLOMERULAR FILTRATION RATE 77.2 ML/MIN; Glucose 128.0 mg/dL (74-106); INR 1.04 (0.8-3.0); PROTIME 11.3 SECONDS (9.4-12.5); Potassium 4.2 mmol/L (3.5-5.1); SGOT/AST 21.0 U/L (14-36); SGPT/ALT 12.0 U/L (0-35); Total Protein 7.2 g/dL (6.3-8.2)
--- NOTE | 2025-05-06 10:36 | XRAY ---
Indication: Fall injury. Multiple contiguous axial images obtained through the cervical spine. Sagittal and coronal reformatted images obtained. Comparison: None Osseous structures demineralized. Axial images negative for acute fracture, suspicious bony lesions, or spinal canal stenosis. Mild/moderate multilevel degenerative spondylosis greatest at C5-C7 levels. Sagittal and coronal reformatted images demonstrates normal lumbar alignment with C4-C7 disc space narrowing. No acute compression fracture, subluxation, or jumped facet. Normal appearing craniocervical junction. Visualized noncontrasted soft tissues demonstrates moderate bilateral carotid calcifications. Lung apices clear. Impression: 1. Negative acute fracture/subluxation. 2. Chronic findings including osteopenia, multilevel degenerative spondylosis, and bilateral carotid calcifications.
--- NOTE | 2025-05-06 10:39 | XRAY ---
Indication: Fall injury. Multiple contiguous axial images obtained through the head without contrast. Comparison: June 24, 2016 e Again previous right frontal temporal parietal craniotomy with moderate sized underlying encephalomalacia. Stable remote left thalamic lacunar infarct. No acute intracranial hemorrhage, hydrocephalus, or mass effect. New small posterior right parietal scalp soft tissue swelling with cutaneous yesy. Remaining bony calvarium intact. Visualized paranasal sinuses and mastoid air cells are clear. Impression: 1. Stable right-sided craniotomy with underlying encephalomalacia and remote left thalamic lacunar infarct. 2. New right parietal scalp swelling with cutaneous yesy. 3. No new/acute intracranial abnormalities.
[2025-05-06] MEDS ORDERED: VENTOLIN COMMON CANISTER IH PRN (12:31)
--- NOTE | 2025-05-06 12:31 | PCM.HP ---
History of Present Illness - Chief Complaint Chief Complaint: Left ankle sprain Date: 05/06/25 History of Present Illness: is a 80-year-old female with a history of seizure disorder, morbid obesity, hypertension, hyperlipidemia, and chronic left hemiplegia secondary to a childhood traumatic brain injury. She is a daily tobacco smoker and has recently started a nicotine patch. She was brought to the emergency department by employee communications manager services following a fall earlier this morning. She initially called for lift assistance and later called again due to scalp bleeding and increased pain in her right wrist and left foot and ankle. The patient ordinarily uses a walker but is currently unable to stand due to pain in her left foot and ankle. She lives alone and denies any loss of consciousness. Laboratory results show WBC 12.8. CT head was negative for acute findings, and all other X-rays reviewed were also negative. Physical therapy evaluation has been ordered to assess home needs, and the patient is likely to be discharged in the morning. - Review of Systems Constitutional: Weakness, No Fever, No Chills Eyes: No Symptoms Ears, Nose, & Throat: No Symptoms Respiratory: No Cough, No Short Of Breath Cardiac: No Chest Pain, No Edema, No Syncope Abdominal/Gastrointestinal: No Abdominal Pain, No Nausea, No Vomiting, No Diarrhea Genitourinary Symptoms: No Dysuria Musculoskeletal: No Back Pain, No Neck Pain Skin: Skin Lesions (right side of head yesy x2), No Rash Neurological: No Dizziness, No Focal Weakness, No Sensory Changes Psychological: No Symptoms Endocrine: No Symptoms Hematologic/Lymphatic: No Symptoms Immunological/Allergic: No Symptoms Medications & Allergies Home Medications: Home Medication List Levetiracetam [Keppra] 500 mg PO HS 06/20/16 [History Confirmed 05/06/25] Simvastatin 40 mg [Zocor 40 mg] 40 mg PO HS 06/20/16 [History Confirmed 05/06/25] Citalopram Hydrobromide [Citalopram HBr] 5 mg PO HS 06/13/19 [History Confirmed 05/06/25] Bumetanide 0.5 mg PO HS 12/28/20 [History Confirmed 05/06/25] Albuterol Sulfate [Albuterol Sulfate Hfa] 2 puff PO Q4H PRN PRN 05/06/25 [History Confirmed 05/06/25] Cholecalciferol (Vitamin D3) [Vitamin D] See Rx Instructions .ROUTE .COMPLEX 05/06/25 [History Confirmed 05/06/25] Cyanocobalamin (Vitamin B-12) [Vitamin B12] 1,000 mcg PO DAILY 05/06/25 [History Confirmed 05/06/25] Mirabegron [Myrbetriq] 50 mg PO HS 05/06/25 [History Confirmed 05/06/25] Rivaroxaban [Xarelto] 2.5 mg PO BID 05/06/25 [History Confirmed 05/06/25] Spironolactone 25 mg [Aldactone 25 MG] 25 mg PO HS 05/06/25 [History Confirmed 05/06/25] Allergies/Adverse Reactions: Allergies Allergy/AdvReac Type Severity Reaction Status Date / Time capsaicin Allergy Intermediate Hives Verified 05/06/25 11:57 tetracycline Allergy Verified 05/06/25 11:57 metronidazole [From Flagyl] AdvReac Verified 05/06/25 11:57 - Past Medical History Past Medical History: Yes Neurological History: Seizures, Other Cardiac History: High Cholesterol, Other Respiratory History: COPD, Sleep Apnea Endocrine Medical History: No Pertinent History Musculoskelatal History: Osteoarthritis GI Medical History: No Pertinent History History: Other Pyscho-Social History: No Pertinent History Reproductive Disorders: Other Comment: No seizures in over 40 years per patient reports on admission ( 05/06/25), States "low blood pressure", 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, VERTIGO, MENINGEAL TUMOR, States, "having my parathyroid checked out due to high calcium levels", uses a CPAP at home, overactive bladder - Past Surgical History Past Surgical History: Yes GI Surgical History: Appendectomy Musculskeletal Surgical Hx: Joint Replacement, Orthopedic Surgery Female Surgical History: Hysterectomy Other Surgical History: bilateral total knee replacements, bilat rotator cuffs Significant Family History: no pertinent family hx - Social History Smoking Status: Current every day smoker How long have you smoked: years Exposure to second hand smoke: Yes Alcohol: None Drug Use: none - Social Determinants of Health Will the patient participate in the screening: Yes Do you worry about a steady place to live?: No Do you have any problems with any of the following?: No known problems In the past 12 months,have you had to go without utilities?: No Have you or anyone in your house had to go without enough: No Transportation Issues: No Has anyone in your support network made you feel unsafe?: No - Physical Exam Vital Signs: Vital Signs - 24 hr Temp Pulse Resp BP BP Pulse Ox 05/06/25 11:10 88 18 92/69 93 L 05/06/25 11:00 88 16 96/54 94 L 05/06/25 10:30 86 16 90/66 94 L 05/06/25 10:13 89 20 102/56 92 L 05/06/25 10:02 87 23 102/56 93 L 05/06/25 10:00 87 20 94 L 05/06/25 09:30 84 18 100/76 93 L 05/06/25 09:00 87 20 93/69 94 L 05/06/25 08:50 75 19 94/57 93 L 05/06/25 08:00 82 19 102/77 83 L 05/06/25 07:55 97.3 F 78 16 102/77 97 General Appearance: no apparent distress, alert, obese Neurologic Exam: alert, oriented x 3, cooperative, normal mood/affect, nml cerebellar function, nml station & gait, sensation nml, motor weakness, other (Left side flaccid and chronic- at baseline), No motor deficits Eye Exam: PERRL/EOMI, eyes nml inspection Ears, Nose, Throat Exam: normal ENT inspection, TMs normal, pharynx normal, moist mucous membranes Neck Exam: normal inspection, non-tender, supple, full range of motion Respiratory Exam: normal breath sounds, lungs clear, No respiratory distress Cardiovascular Exam: regular rate/rhythm, normal heart sounds, normal peripheral pulses Gastrointestinal/Abdomen Exam: soft, normal bowel sounds, No tenderness, No mass Back Exam: normal inspection, normal range of motion, No CVA tenderness, No vertebral tenderness Extremity Exam: normal inspection, normal range of motion, pelvis stable Skin Exam: normal color, warm, dry, No rash Lymphatic Exam: No adenopathy Results - Labs Lab/Micro Results: Lab Results-Last 24 Hours 05/06/25 05/06/25 05/06/25 Range/Units 09:50 09:50 09:50 WBC 12.8 H (3.98-10.04) x10^3/uL RBC 4.63 (3.93-5.22) x10^6/uL Hgb 15.0 (11.2-15.7) g/dL Hct 45.0 H (34.1-44.9) % MCV 97.2 H (79.4-94.8) fL MCH 32.4 H (25.6-32.2) pg MCHC 33.3 (32.2-35.5) g/dL RDW 13.2 (11.7-14.4) % Plt Count 210 (182-369) x10^3/uL MPV 10.9 (9.4-12.3) fL Gran % 84.7 H (34.0-71.1) % Immature Gran % (Auto) 0.4 (0.001-0.429) % Nucleat RBC Rel Count 0.0 (0.00-0.2) % Eos # (Auto) 0.03 L (0.04-0.36) x10^3/uL Immature Gran # (Auto) 0.05 H (0.001-0.031) x10^3u/L Absolute Lymphs (auto) 1.03 L (1.18-3.74) x10^3/uL Absolute Monos (auto) 0.84 (0.24-0.86) x10^3/uL Absolute Nucleated RBC 0.00 (0.00-0.012) x10^3u/L Lymphocytes % 8.0 L (19.3-51.7) % Monocytes % 6.5 (4.7-12.5) % Eosinophils % 0.2 L (0.7-5.8) % Basophils % 0.2 (0.1-1.2) % Absolute Granulocytes 10.86 H (1.56-6.13) x10^3/uL Basophils # 0.03 (0.01-0.08) x10^3/uL PT 11.3 (9.4-12.5) SECONDS INR 1.04 (0.8-3.0) Sodium 136 (135-145) mmol/L Potassium 4.2 (3.5-5.1) mmol/L Chloride 100 (98-107) mmol/L Carbon Dioxide 27 (22-30) mmol/L Anion Gap 13.3 (5-15) MEQ/L BUN 19 H (7-17) mg/dL Creatinine 0.78 (0.52-1.04) mg/dL Estimated GFR 77.2 ML/MIN Glucose 128 H (74-106) mg/dL Calcium 10.3 H (8.4-10.2) mg/dL Total Bilirubin 0.60 (0.2-1.3) mg/dL AST 21 (14-36) U/L ALT 12 (0-35) U/L Alkaline Phosphatase 109 (38-126) U/L Serum Total Protein 7.2 (6.3-8.2) g/dL Albumin 4.0 (3.5-5.0) g/dL - Radiology Impressions Radiology Exams & Impressions: Radiology Procedures Category Date Time Status ANKLE (3 VIEWS) Stat Exams 05/06/25 08:18 Completed CERVICAL SPINE WO CONTRAST [CT] Stat Exams 05/06/25 08:16 Completed FOOT (MINIMUM 3 VIEWS) Stat Exams 05/06/25 08:18 Completed HEAD WITHOUT CONTRAST [CT] Stat Exams 05/06/25 08:16 Completed WRIST (MIN 3 VIEWS) Stat Exams 05/06/25 08:19 Completed Assessment/Plan (1) UTI (urinary tract infection) Current Visit: Yes Status: Acute Assessment & Plan: - Ceftriaxone started IV - CBC, CMP, UA reviewed - UC pending Code(s): N39.0 - URINARY TRACT INFECTION, SITE NOT SPECIFIED (2) Leukocytosis Current Visit: Yes Status: Acute Assessment & Plan: - WBC 12.8- trend - CBC, CMP reviewed - XR's reviewed - UA +- see plan Code(s): D72.829 - ELEVATED WHITE BLOOD CELL COUNT, UNSPECIFIED (3) Left ankle sprain Current Visit: Yes Status: Acute Assessment & Plan: - Rice techniques - Ankle wrapped - ICE pack in place - XR reviewed Code(s): S93.402A - SPRAIN OF UNSPECIFIED LIGAMENT OF LEFT ANKLE, INIT ENCNTR (4) Scalp laceration Current Visit: Yes Status: Acute Assessment & Plan: - 2:2 fall - Yesy in place (5) Fall with no significant injury Current Visit: Yes Status: Acute Assessment & Plan: - Xr's reviewed - [place] x2 right side of head for head lac. - CT cervical spine and CT head negative for acute concern - PT eval Code(s): W19.XXXA - UNSPECIFIED FALL, INITIAL ENCOUNTER (6) Hemiparesis Current Visit: No Status: Chronic Assessment & Plan: - Chronic left side weakness- at baseline Code(s): G81.90 - HEMIPLEGIA, UNSPECIFIED AFFECTING UNSPECIFIED SIDE (7) Sleep apnea Current Visit: Yes Status: Acute Assessment & Plan: - Cpap at night - Chronic Code(s): G47.30 - SLEEP APNEA, UNSPECIFIED (8) Chronic anticoagulation Current Visit: Yes Status: Acute Assessment & Plan: - Continue Xarelto Code(s): Z79.01 - [facility] (CURRENT) USE OF ANTICOAGULANTS (9) Hyperlipidemia Current Visit: Yes Status: Chronic Assessment & Plan: - Continue statin Code(s): E78.5 - HYPERLIPIDEMIA, UNSPECIFIED (10) Seizure disorder Current Visit: Yes Status: Chronic Assessment & Plan: - No recent seizure reported - Continue home med Code(s): G40.909 - EPILEPSY, UNSP, NOT INTRACTABLE, WITHOUT STATUS EPILEPTICUS (11) Morbid obesity with BMI of 45.0-49.9, adult Current Visit: Yes Status: Chronic Assessment & Plan: - Advised diet and exercise control VTE:Xarelto Next of Kin: child- Maryanne Vásquez [phone] D/C plan: tomorrow Code status: Full Plan of care time> 40 minutes Code(s): E66.01 - MORBID (SEVERE) OBESITY DUE TO EXCESS CALORIES; Z68.42 - BODY MASS INDEX [BMI] 45.0-49.9, ADULT
[2025-05-06] MEDS ORDERED: NON-FORMULARY ITEM (Cholecalciferol (Vitamin D3)** [Vitamin D***] 400 UNIT Tablet) SCH (12:45)
[2025-05-06 14:25] LABS: Glucose, Urine Negative (Negative); Protein,Urine Dip Trace (Negative); WBC 0-2 /HPF (0-5)
[2025-05-06] MEDS: Nicoderm CQ 21 MG TOP SCH (15:37)
[2025-05-06] MEDS: Vitamin B-12 500 MCG PO SCH (15:43)
[2025-05-06] MEDS: XARELTO 10 MG TABLET PO SCH (15:43)
[2025-05-06] MEDS: ROCEPHIN 1 GM / 100 ML NaCl 1 GM/100 ML IVPB IV SCH (18:52)
[2025-05-06] MEDS: ZOCOR 20MG PO SCH (22:42)
[2025-05-06] MEDS: ceLEXa 20 MG PO SCH (22:43)
[2025-05-06] MEDS: BUMEX 1 MG PO SCH (22:43)
[2025-05-06] MEDS: KEPPRA PO SCH (22:45)
[2025-05-06] MEDS: Aldactone 25 MG PO SCH (22:46)
[2025-05-06] MEDS: MYRBETRIQ PO SCH (22:46)
[2025-05-07 05:53] LABS: Hematocrit 44.9 % (34.1-44.9); Hemoglobin 14.3 g/dL (11.2-15.7); Mean Corpuscular Hemoglobin 31.2 pg (25.6-32.2); Mean Corpuscular Hgb Concent. 31.8 g/dL (32.2-35.5); Platelet Count 207 x10^3/uL (182-369); Red Blood Count 4.59 x10^6/uL (3.93-5.22); White Blood Count 10.1 x10^3/uL (3.98-10.04)
[2025-05-07 06:28] LABS: Calcium 10.0 mg/dL (8.4-10.2); Carbon Dioxide 26.0 mmol/L (22-30); Creatinine 1 0.65 mg/dL (0.52-1.04); EST GLOMERULAR FILTRATION RATE 89.5 ML/MIN; Glucose 113.0 mg/dL (74-106); Potassium 4.5 mmol/L (3.5-5.1); SGOT/AST 22.0 U/L (14-36); SGPT/ALT 11.0 U/L (0-35); Total Protein 7.1 g/dL (6.3-8.2)
--- NOTE | 2025-05-07 10:38 | PCM.DS ---
Discharge Summary Date of Admission: 05/06/25 11:30 Date of Discharge: 05/07/25 Admitting Physician: KRISTA SLATER MD Primary Care Provider: MAGY SPENCER HOLLAND Allergies Allergies capsaicin Allergy (Intermediate, Verified 05/06/25 11:57) Hives tetracycline Allergy (Verified 05/06/25 11:57) metronidazole [From Flagyl] Adverse Reaction (Verified 05/06/25 11:57) PT REPORTS SEVERE WEAKNESS Hospital Summary - Hospital Course Hospital Course: 05/06/25 is a 80-year-old female with a history of seizure disorder, morbid obesity, hypertension, hyperlipidemia, and chronic left hemiplegia secondary to a childhood traumatic brain injury. She is a daily tobacco smoker and has recently started a nicotine patch. She was brought to the emergency department by administrative representative services following a fall earlier this morning. She initially called for lift assistance and later called again due to scalp bleeding and increased pain in her right wrist and left foot and ankle. The patient ordinarily uses a walker but is currently unable to stand due to pain in her left foot and ankle. She lives alone and denies any loss of consciousness. Laboratory results show WBC 12.8. CT head was negative for acute findings, and all other X-rays reviewed were also negative. Physical therapy evaluation has been ordered to assess home needs, and the patient is likely to be discharged in the morning. 05/07/25 Pt resting in bed. She is has been refusing to get up in a chair. She did walk with PT yesterday and has some weakness. Pt states she wants to go to rehab, case management to dicsuss with pt. She will quality for [facility]. UC negative and antibiotic stopped. Will put in an order for o2 titration study with RT OP. She has a nasal CPAP but oxygen dropped last night in the 80's with this, and O2 applied. - Vitals & Intake/Output Vital Signs: Vital Signs Temperature 97.1 F 05/07/25 08:00 Pulse Rate 75 05/07/25 08:00 Respiratory Rate 17 05/07/25 08:00 Blood Pressure 117/56 05/07/25 08:00 O2 Sat by Pulse Oximetry 96 05/07/25 08:00 Intake & Output: Intake & Output 05/04/25 05/05/25 05/06/25 05/07/25 11:59 11:59 11:59 11:59 Intake Total 1440 Output Total 1500 Balance -60 Weight 113.2 kg 121 kg - Lab Result Diagrams: 05/07/25 05:28 05/07/25 05:28 Lab Results-Last 24 Hrs: Lab Results-Last 24 Hours 05/06/25 05/06/25 05/07/25 Range/Units 09:50 14:16 05:28 WBC 10.1 H (3.98-10.04) x10^3/uL RBC 4.59 (3.93-5.22) x10^6/uL Hgb 14.3 (11.2-15.7) g/dL Hct 44.9 (34.1-44.9) % MCV 97.8 H (79.4-94.8) fL MCH 31.2 (25.6-32.2) pg MCHC 31.8 L (32.2-35.5) g/dL RDW 13.2 (11.7-14.4) % Plt Count 207 (182-369) x10^3/uL MPV 11.0 (9.4-12.3) fL Sodium 136 (135-145) mmol/L Potassium 4.2 (3.5-5.1) mmol/L Chloride 100 (98-107) mmol/L Carbon Dioxide 27 (22-30) mmol/L Anion Gap 13.3 (5-15) MEQ/L BUN 19 H (7-17) mg/dL Creatinine 0.78 (0.52-1.04) mg/dL Estimated GFR 77.2 ML/MIN Glucose 128 H (74-106) mg/dL Calcium 10.3 H (8.4-10.2) mg/dL Total Bilirubin 0.60 (0.2-1.3) mg/dL AST 21 (14-36) U/L ALT 12 (0-35) U/L Alkaline Phosphatase 109 (38-126) U/L Serum Total Protein 7.2 (6.3-8.2) g/dL Albumin 4.0 (3.5-5.0) g/dL Urine Color Yellow (Yellow) Urine Appearance Clear (Clear) Urine pH 6.5 (4.6-8.0) Ur Specific [place] 1.020 (1.005-1.030) Urine Protein Trace A (Negative) Urine Glucose (UA) Negative (Negative) mg/dL Urine Ketones Trace A (Negative) Urine Blood Trace (Negative) Urine Nitrite Negative (Negative) Urine Bilirubin Negative (Negative) Urine Urobilinogen 1.0 A (0.2) mg/dL Ur Leukocyte Esterase Negative (Negative) U Hyaline Cast (Auto) NONE SEEN (0-2) /LPF Urine Microscopic RBC 11-20 A (0-5) /HPF Urine Microscopic WBC 0-2 (0-5) /HPF Ur Epithelial Cells Moderate A (None Seen) /HPF Urine Bacteria None Seen (None Seen) /HPF Urine Culture Reflexed YES (NO) 05/07/25 Range/Units 05:28 WBC (3.98-10.04) x10^3/uL RBC (3.93-5.22) x10^6/uL Hgb (11.2-15.7) g/dL Hct (34.1-44.9) % MCV (79.4-94.8) fL MCH (25.6-32.2) pg MCHC (32.2-35.5) g/dL RDW (11.7-14.4) % Plt Count (182-369) x10^3/uL MPV (9.4-12.3) fL Sodium 135 (135-145) mmol/L Potassium 4.5 (3.5-5.1) mmol/L Chloride 103 (98-107) mmol/L Carbon Dioxide 26 (22-30) mmol/L Anion Gap 11.4 (5-15) MEQ/L BUN 18 H (7-17) mg/dL Creatinine 0.65 (0.52-1.04) mg/dL Estimated GFR 89.5 ML/MIN Glucose 113 H (74-106) mg/dL Calcium 10.0 (8.4-10.2) mg/dL Total Bilirubin 0.60 (0.2-1.3) mg/dL AST 22 (14-36) U/L ALT 11 (0-35) U/L Alkaline Phosphatase 96 (38-126) U/L Serum Total Protein 7.1 (6.3-8.2) g/dL Albumin 3.8 (3.5-5.0) g/dL Urine Color (Yellow) Urine Appearance (Clear) Urine pH (4.6-8.0) Ur Specific [place] (1.005-1.030) Urine Protein (Negative) Urine Glucose (UA) (Negative) mg/dL Urine Ketones (Negative) Urine Blood (Negative) Urine Nitrite (Negative) Urine Bilirubin (Negative) Urine Urobilinogen (0.2) mg/dL Ur Leukocyte Esterase (Negative) U Hyaline Cast (Auto) (0-2) /LPF Urine Microscopic RBC (0-5) /HPF Urine Microscopic WBC (0-5) /HPF Ur Epithelial Cells (None Seen) /HPF Urine Bacteria (None Seen) /HPF Urine Culture Reflexed (NO) Micro Results-Entire Visit: Microbiology 05/06/25 14:16 Urine Culture - Preliminary Urine, Void <10K NORMAL SKIN NAYELI PROBABLE SKIN CONTAMINANT - Radiology Exams Ordered Rad Exams-Entire Visit: Radiology Procedures Category Date Time Status ANKLE (3 VIEWS) Stat Exams 05/06/25 08:18 Completed CERVICAL SPINE WO CONTRAST [CT] Stat Exams 05/06/25 08:16 Completed FOOT (MINIMUM 3 VIEWS) Stat Exams 05/06/25 08:18 Completed HEAD WITHOUT CONTRAST [CT] Stat Exams 05/06/25 08:16 Completed WRIST (MIN 3 VIEWS) Stat Exams 05/06/25 08:19 Completed - Procedures and Test Procedures and Tests throughout Hospitalization: Therapy Orders & Screens 05/06/25 11:39 PT Eval & Treat (MD Order) ONCE Reason for Eval:: Patient lives alone. Uses walker to ambulate. Sprained left ankle. Cannot bear weight. Patient morbidly obese Diagnosis: Left ankle sprain 05/06/25 17:29 RT Miscellaneous Order ROUTINE Comment: Physician Instructions: Reason For Exam: CPAP at night Diagnosis: Left ankle sprain 05/06/25 21:00 BiPap/CPAP ROUTINE Comment: HOME UNIT PER HOME SETTINGS Diagnosis: Left ankle sprain 05/07/25 05:55 Oxygen Nasal Cannula 2 lpm Comment: @ NOC WITH CPAP Diagnosis: Left ankle sprain Discharge Exam General Appearance: no apparent distress, alert, obese Neurologic Exam: alert, oriented x 3, cooperative, normal mood/affect, nml cerebellar function, sensation nml, motor weakness, No motor deficits Eye Exam: PERRL, EOMI, eyes nml inspection Ears, Nose, Throat Exam: normal ENT inspection, pharynx normal, moist mucous membranes Neck Exam: normal inspection, non-tender, supple, full range of motion Respiratory Exam: normal breath sounds, lungs clear, No respiratory distress Cardiovascular Exam: regular rate/rhythm, normal heart sounds Gastrointestinal/Abdomen Exam: soft, No tenderness, No mass Pelvic Exam: deferred Rectal Exam: deferred Back Exam: normal inspection, normal range of motion, No CVA tenderness, No vertebral tenderness Extremity Exam: normal inspection, normal range of motion Skin Exam: normal color, warm, dry Wound Assessment: Skin/Wound Assessment Wound/Incision Assessment Start: 05/06/25 12:36 Text: Status: Active Freq: Q6H Protocol: Document 05/07/25 01:53 CWB (Rec: 05/07/25 01:54 CWB [id number]) Wound/Incision Assessment Right Parietal Wound Assessment Shift Assessment Wound Type Laceration Wound Stage Non Pressure Wound Dressing Status Dry & Intact Drainage Amount None General Appearance Well Approximated,Open to air, Clean/Dry Surrounding Tissue [place] Primary Dressing none open to air Wound Photo Photo Taken No Final Diagnosis/Problem List - Final Discharge Diagnosis/Problem (1) UTI (urinary tract infection) Current Visit: Yes Status: Acute Code(s): N39.0 - URINARY TRACT INFECTION, SITE NOT SPECIFIED (2) Leukocytosis Current Visit: Yes Status: Acute Code(s): D72.829 - ELEVATED WHITE BLOOD CELL COUNT, UNSPECIFIED (3) Left ankle sprain Current Visit: Yes Status: Acute Code(s): S93.402A - SPRAIN OF UNSPECIFIED LIGAMENT OF LEFT ANKLE, INIT ENCNTR (4) Scalp laceration Current Visit: Yes Status: Acute (5) Fall with no significant injury Current Visit: Yes Status: Acute Code(s): W19.XXXA - UNSPECIFIED FALL, INITIAL ENCOUNTER (6) Hemiparesis Current Visit: No Status: Chronic Code(s): G81.90 - HEMIPLEGIA, UNSPECIFIED AFFECTING UNSPECIFIED SIDE (7) Sleep apnea Current Visit: Yes Status: Acute Code(s): G47.30 - SLEEP APNEA, UNSPECIFIED (8) Chronic anticoagulation Current Visit: Yes Status: Acute Code(s): Z79.01 - [facility] (CURRENT) USE OF ANTICOAGULANTS (9) Hyperlipidemia Current Visit: Yes Status: Chronic Code(s): E78.5 - HYPERLIPIDEMIA, UNSPECIFIED (10) Seizure disorder Current Visit: Yes Status: Chronic Code(s): G40.909 - EPILEPSY, UNSP, NOT INTRACTABLE, WITHOUT STATUS EPILEPTICUS (11) Morbid obesity with BMI of 45.0-49.9, adult Current Visit: Yes Status: Chronic Assessment & Plan: 1) UTI (urinary tract infection) Current Visit: Yes Status: Acute Assessment & Plan: - Ceftriaxone started IV - CBC, CMP, UA reviewed - UC negative - IV antibiotic stopped Code(s): N39.0 - URINARY TRACT INFECTION, SITE NOT SPECIFIED (2) Leukocytosis Current Visit: Yes Status: Acute Assessment & Plan: - WBC 12.8- trend - CBC, CMP reviewed - XR's reviewed - UA +- see plan 05/07 - WBC 10.1 - CBC, CMP reviewed Code(s): D72.829 - ELEVATED WHITE BLOOD CELL COUNT, UNSPECIFIED (3) Left ankle sprain Current Visit: Yes Status: Acute Assessment & Plan: - Rice techniques - Ankle wrapped - ICE pack in place - XR reviewed 05/07 - Podiatry consult - PT would like walking boot - for [facility] Code(s): S93.402A - SPRAIN OF UNSPECIFIED LIGAMENT OF LEFT ANKLE, INIT ENCNTR (4) Scalp laceration Current Visit: Yes Status: Acute Assessment & Plan: - 2:2 fall - [place] in place (5) Fall with no significant injury Current Visit: Yes Status: Acute Assessment & Plan: - Xr's reviewed - [place] x2 right side of head for head lac. - CT cervical spine and CT head negative for acute concern - PT eval Code(s): W19.XXXA - UNSPECIFIED FALL, INITIAL ENCOUNTER (6) Hemiparesis Current Visit: No Status: Chronic Assessment & Plan: - Chronic left side weakness- at baseline Code(s): G81.90 - HEMIPLEGIA, UNSPECIFIED AFFECTING UNSPECIFIED SIDE (7) Sleep apnea Current Visit: Yes Status: Acute Assessment & Plan: - Cpap at night - Chronic Code(s): G47.30 - SLEEP APNEA, UNSPECIFIED (8) Chronic anticoagulation Current Visit: Yes Status: Acute Assessment & Plan: - Continue Xarelto Code(s): Z79.01 - [facility] (CURRENT) USE OF ANTICOAGULANTS (9) Hyperlipidemia Current Visit: Yes Status: Chronic Assessment & Plan: - Continue statin Code(s): E78.5 - HYPERLIPIDEMIA, UNSPECIFIED (10) Seizure disorder Current Visit: Yes Status: Chronic Assessment & Plan: - No recent seizure reported - Continue home med Code(s): G40.909 - EPILEPSY, UNSP, NOT INTRACTABLE, WITHOUT STATUS EPILEPTICUS (11) Morbid obesity with BMI of 45.0-49.9, adult Current Visit: Yes Status: Chronic Assessment & Plan: - Advised diet and exercise control Code(s): E66.01 - MORBID (SEVERE) OBESITY DUE TO EXCESS CALORIES; Z68.42 - BODY MASS INDEX [BMI] 45.0-49.9, ADULT - Discharge Discharge Date: 05/07/25 Disposition: Home, Self-Care Condition: Stable Prescriptions: Continue Levetiracetam [Keppra] 500 mg PO HS Simvastatin 40 mg [Zocor 40 mg] 40 mg PO HS Citalopram Hydrobromide [Citalopram HBr] 5 mg PO HS Bumetanide 0.5 mg PO HS Rivaroxaban [Xarelto] 2.5 mg PO BID Cyanocobalamin (Vitamin B-12) [Vitamin B12] 1,000 mcg PO DAILY Albuterol Sulfate [Albuterol Sulfate Hfa] 2 puff PO Q4H PRN PRN PRN Reason: Shortness Of Breath Spironolactone 25 mg [Aldactone 25 MG] 25 mg PO HS Mirabegron [Myrbetriq] 50 mg PO HS Cholecalciferol (Vitamin D3) [Vitamin D] See Rx Instructions .ROUTE .COMPLEX Outpatient Orders: Titration Study Time Frame: 1 Day, Facility: [facility], Location: RESPIRATORY THERAPY Instructions: Preventing falls in adults Additional Instructions: June AT 8:30 PM YOU A HAVE A SCHEDULED TITRATION SLEEP STUDY TEST. PLEASE COME IN TO REGISTER AND THEN REPORT TO SLEEP STUDY LAB AT [facility]. Follow up with: MAGY SPENCER MD [Primary Care Provider, FAMILY PRACTICE] - 05/14/25 2:15 pm Referral Note: You will not need to see Luna Castorena NP on 05/13/2025, you will just follow up with Dr. Spencer instead.
--- NOTE | 2025-05-07 14:13 | PCM.CONS ---
Podiatry HPI - Consult Date of Consultation Date: 05/07/25 Reason for Consult: Left ankle sprain. Fourth metatarsal fracture Consulting Provider: CLEM CHAPMAN NP - [facility] History of Present Illness: is a 80 year old female. Reports presenting to the emergency department due to a mechanical fall at home in which she bent over and lost her footing causing her to fall and strike her head. She also reports rolling the left ankle with pain to the lateral aspect of the ankle and to the midfoot. She reports history of smoking in which she has not smoked in last 24 hours and would like to continue with smoking cessation. Patient reported that podiatry was consulted due to physical therapy requesting walking cam boot for ankle sprain and isolation of the fracture. Medications & Allergies Home Medications: Home Medication List Levetiracetam [Keppra] 500 mg PO HS 06/20/16 [History Confirmed 05/06/25] Simvastatin 40 mg [Zocor 40 mg] 40 mg PO HS 06/20/16 [History Confirmed 0 05/06/25] Citalopram Hydrobromide [Citalopram HBr] 5 mg PO HS 06/13/19 [History Confirmed 05/06/25] Bumetanide 0.5 mg PO HS 12/28/20 [History Confirmed 05/06/25] Albuterol Sulfate [Albuterol Sulfate Hfa] 2 puff PO Q4H PRN PRN 05/06/25 [History Confirmed 05/06/25] Cholecalciferol (Vitamin D3) [Vitamin D] See Rx Instructions .ROUTE .COMPLEX 05/06/25 [History Confirmed 05/06/25] Cyanocobalamin (Vitamin B-12) [Vitamin B12] 1,000 mcg PO DAILY 05/06/25 [History Confirmed 05/06/25] Mirabegron [Myrbetriq] 50 mg PO HS 05/06/25 [History Confirmed 05/06/25] Rivaroxaban [Xarelto] 2.5 mg PO BID 05/06/25 [History Confirmed 05/06/25] Spironolactone 25 mg [Aldactone 25 MG] 25 mg PO HS 05/06/25 [History Confirmed 05/06/25] Allergies/Adverse Reactions: Allergies Allergy/AdvReac Type Severity Reaction Status Date / Time capsaicin Allergy Intermediate Hives Verified 05/06/25 11:57 tetracycline Allergy Verified 05/06/25 11:57 metronidazole [From Flagyl] AdvReac Verified 05/06/25 11:57 - Past Medical History Past Medical History: Yes Neurological History: Seizures, Other ENT History: No Pertinent History Cardiac History: High Cholesterol, Other Respiratory History: COPD, Sleep Apnea Endocrine Medical History: No Pertinent History Musculoskelatal History: Osteoarthritis GI Medical History: No Pertinent History History: Other Pyscho-Social History: No Pertinent History Reproductive Disorders: Other Comment: No seizures in over 40 years per patient reports on admission (05/06/25), States "low blood pressure", 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, VERTIGO, MENINGEAL TUMOR, States, "having my parathyroid checked out due to high calcium levels", uses a CPAP at home, overactive bladder - Past Surgical History Past Surgical History: Yes GI Surgical History: Appendectomy Musculskeletal Surgical Hx: Joint Replacement, Orthopedic Surgery Female Surgical History: Hysterectomy Other Surgical History: bilateral total knee replacements, bilat rotator cuffs Significant Family History: no pertinent family hx - Social History Smoking Status: Current every day smoker How long have you smoked: years Exposure to second hand smoke: Yes Alcohol: None Drug Use: none - Social Determinants of Health Will the patient participate in the screening: Yes Do you worry about a steady place to live?: No Do you have any problems with any of the following?: No known problems In the past 12 months,have you had to go without utilities?: No Have you or anyone in your house had to go without enough: No Transportation Issues: No Has anyone in your support network made you feel unsafe?: No Does the patient want assistance with any of the above?: No Physical Exam - Narrative Narrative Physical Exam: Podiatry Physical Exam Results - Labs Lab/Micro Results: Lab Results-Last 24 Hours 05/06/25 05/07/25 05/07/25 Range/Units 14:16 05:28 05:28 WBC 10.1 H (3.98-10.04) x10^3/uL RBC 4.59 (3.93-5.22) x10^6/uL Hgb 14.3 (11.2-15.7) g/dL Hct 44.9 (34.1-44.9) % MCV 97.8 H (79.4-94.8) fL MCH 31.2 (25.6-32.2) pg MCHC 31.8 L (32.2-35.5) g/dL RDW 13.2 (11.7-14.4) % Plt Count 207 (182-369) x10^3/uL MPV 11.0 (9.4-12.3) fL Sodium 135 (135-145) mmol/L Potassium 4.5 (3.5-5.1) mmol/L Chloride 103 (98-107) mmol/L Carbon Dioxide 26 (22-30) mmol/L Anion Gap 11.4 (5-15) MEQ/L BUN 18 H (7-17) mg/dL Creatinine 0.65 (0.52-1.04) mg/dL Estimated GFR 89.5 ML/MIN Glucose 113 H (74-106) mg/dL Calcium 10.0 (8.4-10.2) mg/dL Total Bilirubin 0.60 (0.2-1.3) mg/dL AST 22 (14-36) U/L ALT 11 (0-35) U/L Alkaline Phosphatase 96 (38-126) U/L Serum Total Protein 7.1 (6.3-8.2) g/dL Albumin 3.8 (3.5-5.0) g/dL Urine Color Yellow (Yellow) Urine Appearance Clear (Clear) Urine pH 6.5 (4.6-8.0) Ur Specific [place] 1.020 (1.005-1.030) Urine Protein Trace A (Negative) Urine Glucose (UA) Negative (Negative) mg/dL Urine Ketones Trace A (Negative) Urine Blood Trace (Negative) Urine Nitrite Negative (Negative) Urine Bilirubin Negative (Negative) Urine Urobilinogen 1.0 A (0.2) mg/dL Ur Leukocyte Esterase Negative (Negative) U Hyaline Cast (Auto) NONE SEEN (0-2) /LPF Urine Microscopic RBC 11-20 A (0-5) /HPF Urine Microscopic WBC 0-2 (0-5) /HPF Ur Epithelial Cells Moderate A (None Seen) /HPF Urine Bacteria None Seen (None Seen) /HPF Urine Culture Reflexed YES (NO) Microbiology 05/06/25 14:16 Urine Culture - Preliminary Urine, Void <10K NORMAL SKIN NAYELI PROBABLE SKIN CONTAMINANT - Radiology Impressions Radiology Exams & Impressions: Radiology Procedures Category Date Time Status ANKLE (3 VIEWS) Stat Exams 05/06/25 08:18 Completed CERVICAL SPINE WO CONTRAST [CT] Stat Exams 05/06/25 08:16 Completed FOOT (MINIMUM 3 VIEWS) Stat Exams 05/06/25 08:18 Completed HEAD WITHOUT CONTRAST [CT] Stat Exams 05/06/25 08:16 Completed WRIST (MIN 3 VIEWS) Stat Exams 05/06/25 08:19 Completed - Other Procedures and Tests Respiratory Therapy 05/06/25 21:00 BiPap/CPAP ROUTINE 05/07/25 05:55 Oxygen Nasal Cannula 2 lpm Assessment/Plan (1) Sprain of calcaneofibular ligament of left ankle, initial encounter Current Visit: Yes Status: Acute Code(s): S93.412A - SPRAIN OF CALCANEOFIBULAR LIGAMENT OF LEFT ANKLE, INIT (2) Sprain of anterior talofibular ligament of left ankle Current Visit: Yes Status: Acute Code(s): S93.492A - SPRAIN OF OTHER LIGAMENT OF LEFT ANKLE, INITIAL ENCOUNTER (3) Left ankle sprain Current Visit: Yes Status: Acute Code(s): S93.402A - SPRAIN OF UNSPECIFIED LIGAMENT OF LEFT ANKLE, INIT ENCNTR (4) Morbid obesity with BMI of 45.0-49.9, adult Current Visit: Yes Status: Chronic Code(s): E66.01 - MORBID (SEVERE) OBESITY DUE TO EXCESS CALORIES; Z68.42 - BODY MASS INDEX [BMI] 45.0-49.9, ADULT (5) General weakness Current Visit: No Status: Acute Code(s): R53.1 - WEAKNESS (6) Closed fracture of fourth metatarsal bone of left foot Current Visit: Yes Status: Acute Qualifiers: Encounter type: initial encounter Fracture alignment: nondisplaced Qualified Code(s): S92.345A - Nondisplaced fracture of fourth metatarsal bone, left foot, initial encounter for closed fracture Code(s): S92.342A - DISP FX OF FOURTH METATARSAL BONE, LEFT FOOT, INIT
--- NOTE | 2025-05-07 15:18 | PCM.NOTE ---
Date and Time: 05/07/25 1513 Subjective Assessment: 05/06/25 is a 80-year-old female with a history of seizure disorder, morbid obesity, hypertension, hyperlipidemia, and chronic left hemiplegia secondary to a childhood traumatic brain injury. She is a daily tobacco smoker and has recently started a nicotine patch. She was brought to the emergency department by title vehicle service attendant services following a fall earlier this morning. She initially called for lift assistance and later called again due to scalp bleeding and increased pain in her right wrist and left foot and ankle. The patient ordinarily uses a walker but is currently unable to stand due to pain in her left foot and ankle. She lives alone and denies any loss of consciousness. Laboratory results show WBC 12.8. CT head was negative for acute findings, and all other X-rays reviewed were also negative. Physical therapy evaluation has been ordered to assess home needs, and the patient is likely to be discharged in the morning. 05/07/25 Pt resting in bed. She is has been refusing to get up in a chair. She did walk with PT yesterday and has some weakness. Pt states she wants to go to rehab, case management to dicsuss with pt. She will quality for [facility]. UC negative and antibiotic stopped. Will put in an order for o2 titration study with RT OP. She has a nasal CPAP but oxygen dropped last night in the 80's with this, and O2 applied. Podiatry consult ordered d/t foot pain, Cam boot ordered. Pt did not do well with PT eval today. CM to set up Rehab OP, unless pt does well over the weekend then she could possible go home. - Review of Systems Constitutional: Weakness, No Fever, No Chills Eyes: No Symptoms Ears, Nose, & Throat: No Symptoms Respiratory: No Cough, No Short Of Breath Cardiac: No Chest Pain, No Edema, No Syncope Abdominal/Gastrointestinal: No Abdominal Pain, No Nausea, No Vomiting, No Diarrhea Genitourinary Symptoms: No Dysuria Musculoskeletal: Injury (Left ankle/ foot pain), No Back Pain, No Neck Pain Skin: No Rash Neurological: No Dizziness, No Focal Weakness, No Sensory Changes Psychological: No Symptoms Endocrine: No Symptoms Hematologic/Lymphatic: No Symptoms Immunological/Allergic: No Symptoms Objective Exam General Appearance: no apparent distress, alert, obese Neurologic Exam: alert, oriented x 3, cooperative, normal mood/affect, nml cerebellar function, sensation nml, motor weakness, No motor deficits Skin Exam: normal color, warm, dry Wound Assessment: Skin/Wound Assessment Wound/Incision Assessment Start: 05/06/25 12:36 Text: Status: Active Freq: Q6H Protocol: Document 05/07/25 08:00 (Rec: 05/07/25 11:02 [id number]) Wound/Incision Assessment Right Parietal Wound Assessment Shift Assessment Wound Type Laceration Drainage Amount None General Appearance Well Approximated,Cushman Intact,Open to air Eye Exam: PERRL, EOMI, eyes nml inspection Ears, Nose, Throat Exam: normal ENT inspection, pharynx normal, moist mucous membranes Neck Exam: normal inspection, non-tender, supple, full range of motion Respiratory Exam: normal breath sounds, lungs clear, No respiratory distress Cardiovascular Exam: regular rate/rhythm, normal heart sounds Gastrointestinal/Abdomen Exam: soft, No tenderness, No mass Extremity Exam: normal inspection, normal range of motion, tenderness (Left ankle and foot pain) Back Exam: normal inspection, normal range of motion, No CVA tenderness, No vertebral tenderness Pelvic Exam: deferred Rectal Exam: deferred Objective Data Vital Signs: Vital Signs - 24 hr Temp Pulse Resp BP Pulse Ox 05/07/25 12:00 97.1 F 75 17 117/56 96 05/07/25 08:00 97.1 F 75 17 117/56 96 05/07/25 04:05 92 L 05/07/25 04:00 97.1 F 76 20 109/73 85 L 05/06/25 23:00 97.8 F 84 18 93/63 91 L 05/06/25 19:00 98.1 F 93 H 20 102/54 95 05/06/25 15:39 99.1 F 91 H 18 112/55 93 L Pain Assessment - Last Documented Pain Intensity 2 Intake and Output: Intake & Output 05/05/25 05/06/25 05/07/25 05/08/25 11:59 11:59 11:59 11:59 Intake Total 1440 240 Output Total 1500 800 Balance -60 -560 Weight 113.2 kg 121 kg Lab Results: Lab Results-Last 24 Hours 05/07/25 05/07/25 Range/Units 05:28 05:28 WBC 10.1 H (3.98-10.04) x10^3/uL RBC 4.59 (3.93-5.22) x10^6/uL Hgb 14.3 (11.2-15.7) g/dL Hct 44.9 (34.1-44.9) % MCV 97.8 H (79.4-94.8) fL MCH 31.2 (25.6-32.2) pg MCHC 31.8 L (32.2-35.5) g/dL RDW 13.2 (11.7-14.4) % Plt Count 207 (182-369) x10^3/uL MPV 11.0 (9.4-12.3) fL Sodium 135 (135-145) mmol/L Potassium 4.5 (3.5-5.1) mmol/L Chloride 103 (98-107) mmol/L Carbon Dioxide 26 (22-30) mmol/L Anion Gap 11.4 (5-15) MEQ/L BUN 18 H (7-17) mg/dL Creatinine 0.65 (0.52-1.04) mg/dL Estimated GFR 89.5 ML/MIN Glucose 113 H (74-106) mg/dL Calcium 10.0 (8.4-10.2) mg/dL Total Bilirubin 0.60 (0.2-1.3) mg/dL AST 22 (14-36) U/L ALT 11 (0-35) U/L Alkaline Phosphatase 96 (38-126) U/L Serum Total Protein 7.1 (6.3-8.2) g/dL Albumin 3.8 (3.5-5.0) g/dL Radiology Exams: Radiology Procedures Category Date Time Status ANKLE (3 VIEWS) Stat Exams 05/06/25 08:18 Completed CERVICAL SPINE WO CONTRAST [CT] Stat Exams 05/06/25 08:16 Completed FOOT (MINIMUM 3 VIEWS) Stat Exams 05/06/25 08:18 Completed HEAD WITHOUT CONTRAST [CT] Stat Exams 05/06/25 08:16 Completed WRIST (MIN 3 VIEWS) Stat Exams 05/06/25 08:19 Completed Medications: Medications Generic Name Dose Route Start Last Admin Trade Name Freq PRN Reason Stop Dose Admin Bumetanide 0.5 mg 05/06/25 22:00 05/06/25 22:43 Bumetanide 1 Mg Tablet PO 06/05/25 21:59 Not Given HS NATALI Citalopram Hydrobromide 5 mg 05/06/25 22:00 05/06/25 22:43 Citalopram Hydrobromide 20 Mg Tablet PO 06/05/25 21:59 5 mg HS NATALI Administration Cyanocobalamin 1,000 mcg 05/06/25 13:00 05/07/25 10:33 Cyanocobalamin 500 Mcg Tablet PO 06/05/25 12:59 1,000 mcg DAILY NATALI Administration Levetiracetam 500 mg 05/06/25 22:00 05/06/25 22:45 Levetiracetam 500 Mg Tablet PO 06/05/25 21:59 500 mg HS NATALI Administration Mirabegron 50 mg 05/06/25 22:00 05/06/25 22:46 Mirabegron 25 Mg Tab.Er.24h PO 06/05/25 21:59 50 mg HS NATALI Administration Nicotine 21 mg 05/06/25 12:30 05/07/25 09:46 Nicotine 21 Mg/Patch Patch TOP 06/05/25 12:29 Not Given Q24H10 NATALI Rivaroxaban 2.5 mg 05/06/25 13:00 05/07/25 10:33 Rivaroxaban 10 Mg Tablet PO 06/05/25 12:59 2.5 mg BID NATALI Administration Simvastatin 40 mg 05/06/25 22:00 05/06/25 22:42 Simvastatin 20 Mg Tablet PO 06/05/25 21:59 40 mg HS NATALI Administration Spironolactone 25 mg 05/06/25 22:00 05/06/25 22:46 Spironolactone 25 Mg Tablet PO 06/05/25 21:59 Not Given HS NATALI Discontinued Medications Generic Name Dose Route Start Last Admin Trade Name Freq PRN Reason Stop Dose Admin Albuterol Sulfate 2 puff 05/06/25 12:31 Albuterol Common Canister Inhaler IH 06/05/25 12:30 Q4H PRN PRN SHORTNESS OF BREATH Ceftriaxone Sodium 1 gm in 100 mls @ 200 mls/hr 05/06/25 18:00 05/06/25 20:37 Rocephin 1 Gm / 100 Ml Nacl IV 06/05/25 17:59 200 mls/hr Q24H10 NATALI Administration Non-Formulary Medication 0 tab 05/06/25 12:45 Cholecalciferol (Vitamin D3) [Vitamin D] .ROUTE 06/05/25 12:44 .COMPLEX NATALI Multi-Disciplinary Progress Notes: Multi-Disciplinary Progress Notes 05/07/25 13:17 Case Management Note by Bouchra Zamora REFERRAL FAXED TO [facility]. THEY WILL NEED NOTIFIED AT TIME OF DC AT [phone]. THEY WILL NEED FAXED THE DC INSTRUCTIONS, DC, DC MED LIST AND DC SUMMARY TO [phone] Initialized on 05/07/25 13:17 - END OF NOTE 05/07/25 11:36 Respiratory Note by Saundra Chavez TITRATION SLEEP STUDY SCHEDULED FOR SaturdayJune @ 830PM. Initialized on 05/07/25 11:36 - END OF NOTE 05/07/25 05:54 Respiratory Note by Vannessa Haynes ADDED 2L OXYGEN TO CPAP DUE TO SATS DROPPING WHILE ASLEEP. Initialized on 05/07/25 05:54 - END OF NOTE Assessment/Plan (1) UTI (urinary tract infection) Current Visit: Yes Status: Acute Code(s): N39.0 - URINARY TRACT INFECTION, SITE NOT SPECIFIED (2) Leukocytosis Current Visit: Yes Status: Acute Code(s): D72.829 - ELEVATED WHITE BLOOD CELL COUNT, UNSPECIFIED (3) Left ankle sprain Current Visit: Yes Status: Acute Code(s): S93.402A - SPRAIN OF UNSPECIFIED LIGAMENT OF LEFT ANKLE, INIT ENCNTR (4) Scalp laceration Current Visit: Yes Status: Acute (5) Fall with no significant injury Current Visit: Yes Status: Acute Code(s): W19.XXXA - UNSPECIFIED FALL, INITIAL ENCOUNTER (6) Hemiparesis Current Visit: No Status: Chronic Code(s): G81.90 - HEMIPLEGIA, UNSPECIFIED AFFECTING UNSPECIFIED SIDE (7) Sleep apnea Current Visit: Yes Status: Acute Code(s): G47.30 - SLEEP APNEA, UNSPECIFIED (8) Chronic anticoagulation Current Visit: Yes Status: Acute Code(s): Z79.01 - USP (CURRENT) USE OF ANTICOAGULANTS (9) Hyperlipidemia Current Visit: Yes Status: Chronic Code(s): E78.5 - HYPERLIPIDEMIA, UNSPECIFIED (10) Seizure disorder Current Visit: Yes Status: Chronic Code(s): G40.909 - EPILEPSY, UNSP, NOT INTRACTABLE, WITHOUT STATUS EPILEPTICUS (11) Morbid obesity with BMI of 45.0-49.9, adult Current Visit: Yes Status: Chronic Assessment & Plan: 1) UTI (urinary tract infection) Current Visit: Yes Status: Acute Assessment & Plan: - Ceftriaxone started IV - CBC, CMP, UA reviewed - UC negative - IV antibiotic stopped Code(s): N39.0 - URINARY TRACT INFECTION, SITE NOT SPECIFIED (2) Leukocytosis Current Visit: Yes Status: Acute Assessment & Plan: - WBC 12.8- trend - CBC, CMP reviewed - XR's reviewed - UA +- see plan 05/07 - WBC 10.1 - CBC, CMP reviewed Code(s): D72.829 - ELEVATED WHITE BLOOD CELL COUNT, UNSPECIFIED (3) Left ankle sprain Current Visit: Yes Status: Acute Assessment & Plan: - Rice techniques - Ankle wrapped - ICE pack in place - XR reviewed 05/07 - Podiatry consult - PT would like walking boot- ordered by podiatry - CM for [facility] - Pt did not do well with PT today - Consider rehab placement Code(s): S93.402A - SPRAIN OF UNSPECIFIED LIGAMENT OF LEFT ANKLE, INIT ENCNTR (4) Scalp laceration Current Visit: Yes Status: Acute Assessment & Plan: - 2:2 fall - Eric in place (5) Fall with no significant injury Current Visit: Yes Status: Acute Assessment & Plan: - Xr's reviewed - Cushman x2 right side of head for head lac. - CT cervical spine and CT head negative for acute concern - PT eval Code(s): W19.XXXA - UNSPECIFIED FALL, INITIAL ENCOUNTER (6) Hemiparesis Current Visit: No Status: Chronic Assessment & Plan: - Chronic left side weakness- at baseline Code(s): G81.90 - HEMIPLEGIA, UNSPECIFIED AFFECTING UNSPECIFIED SIDE (7) Sleep apnea Current Visit: Yes Status: Acute Assessment & Plan: - Cpap at night - Chronic Code(s): G47.30 - SLEEP APNEA, UNSPECIFIED (8) Chronic anticoagulation Current Visit: Yes Status: Acute Assessment & Plan: - Continue Xarelto Code(s): Z79.01 - [employer] (CURRENT) USE OF ANTICOAGULANTS (9) Hyperlipidemia Current Visit: Yes Status: Chronic Assessment & Plan: - Continue statin Code(s): E78.5 - HYPERLIPIDEMIA, UNSPECIFIED (10) Seizure disorder Current Visit: Yes Status: Chronic Assessment & Plan: - No recent seizure reported - Continue home med Code(s): G40.909 - EPILEPSY, UNSP, NOT INTRACTABLE, WITHOUT STATUS EPILEPTICUS (11) Morbid obesity with BMI of 45.0-49.9, adult Current Visit: Yes Status: Chronic Assessment & Plan: - Advised diet and exercise control Code(s): E66.01 - MORBID (SEVERE) OBESITY DUE TO EXCESS CALORIES; Z68.42 - BODY MASS INDEX [BMI] 45.0-49.9, ADULT VTE:Xarelto Next of Kin: darrin- Maryanne Vásquez [phone] D/C plan: Pending placement Code status: Full Plan of care time> 40 minutes Code(s): E66.01 - MORBID (SEVERE) OBESITY DUE TO EXCESS CALORIES; Z68.42 - BODY MASS INDEX [BMI] 45.0-49.9, ADULT
[2025-05-08 05:51] LABS: Hematocrit 42.8 % (34.1-44.9); Hemoglobin 13.8 g/dL (11.2-15.7); Mean Corpuscular Hemoglobin 31.5 pg (25.6-32.2); Mean Corpuscular Hgb Concent. 32.2 g/dL (32.2-35.5); Platelet Count 193 x10^3/uL (182-369); Red Blood Count 4.38 x10^6/uL (3.93-5.22); White Blood Count 8.4 x10^3/uL (3.98-10.04)
[2025-05-08 06:02] LABS: Calcium 10.1 mg/dL (8.4-10.2); Carbon Dioxide 28.0 mmol/L (22-30); Creatinine 1 0.73 mg/dL (0.52-1.04); EST GLOMERULAR FILTRATION RATE 83.6 ML/MIN; Glucose 104.0 mg/dL (74-106); Potassium 4.4 mmol/L (3.5-5.1)
[2025-05-08] MEDS: BUMEX 1 MG PO SCH (10:36)
[2025-05-08] MEDS: Aldactone 25 MG PO SCH (10:37)
[2025-05-09 06:10] LABS: Hematocrit 43.9 % (34.1-44.9); Hemoglobin 14.1 g/dL (11.2-15.7); Mean Corpuscular Hemoglobin 31.4 pg (25.6-32.2); Mean Corpuscular Hgb Concent. 32.1 g/dL (32.2-35.5); Platelet Count 206 x10^3/uL (182-369); Red Blood Count 4.49 x10^6/uL (3.93-5.22); White Blood Count 8.3 x10^3/uL (3.98-10.04)
[2025-05-09 06:21] LABS: Calcium 9.7 mg/dL (8.4-10.2); Carbon Dioxide 29.0 mmol/L (22-30); Creatinine 1 0.7 mg/dL (0.52-1.04); EST GLOMERULAR FILTRATION RATE 87.9 ML/MIN; Glucose 115.0 mg/dL (74-106); Potassium 4.2 mmol/L (3.5-5.1); SGOT/AST 21.0 U/L (14-36); SGPT/ALT 12.0 U/L (0-35); Total Protein 6.8 g/dL (6.3-8.2)
--- NOTE | 2025-05-09 09:37 | PCM.NOTE ---
Date and Time: 05/08/25929 Subjective Assessment: 05/06/25 is a 80-year-old female with a history of seizure disorder, morbid obesity, hypertension, hyperlipidemia, and chronic left hemiplegia secondary to a childhood traumatic brain injury. She is a daily tobacco smoker and has recently started a nicotine patch. She was brought to the emergency department by [facility] following a fall earlier this morning. She initially called for lift assistance and later called again due to scalp bleeding and increased pain in her right wrist and left foot and ankle. The patient ordinarily uses a walker but is currently unable to stand due to pain in her left foot and ankle. She lives alone and denies any loss of consciousness. Laboratory results show WBC 12.8. CT head was negative for acute findings, and all other X-rays reviewed were also negative. Physical therapy evaluation has been ordered to assess home needs, and the patient is likely to be discharged in the morning. 05/07/25 Pt resting in bed. She is has been refusing to get up in a chair. She did walk with PT yesterday and has some weakness. Pt states she wants to go to rehab, case management to dicsuss with pt. She will quality for [facility]. UC negative and antibiotic stopped. Will put in an order for o2 titration study with RT OP. She has a nasal CPAP but oxygen dropped last night in the 80's with this, and O2 applied. Podiatry consult ordered d/t foot pain, Cam boot ordered. Pt did not do well with PT roge today. CM to set up Rehab OP, unless pt does well over the weekend then she could possible go home. 05/08/25 Patient resting in bed. She has been placed on fluid restriction due to sodium level of 130. She continues to report weakness. Staff to ambulate patient three times daily and assist her in sitting up in a chair. If she tolerates activity well, discharge home will be considered. Patient expresses desire to return home but reports feeling too weak at present. She denies any additional concerns at this time. - Review of Systems Constitutional: Weakness, No Fever, No Chills Eyes: No Symptoms Ears, Nose, & Throat: No Symptoms Respiratory: No Cough, No Short Of Breath Cardiac: No Chest Pain, No Edema, No Syncope Abdominal/Gastrointestinal: No Abdominal Pain, No Nausea, No Vomiting, No Diarrhea Genitourinary Symptoms: No Dysuria Musculoskeletal: No Back Pain, No Neck Pain Skin: No Rash Neurological: No Dizziness, No Focal Weakness, No Sensory Changes Psychological: No Symptoms Endocrine: No Symptoms Hematologic/Lymphatic: No Symptoms Immunological/Allergic: No Symptoms Objective Exam General Appearance: no apparent distress, alert, obese Neurologic Exam: alert, oriented x 3, cooperative, normal mood/affect, nml cer ebellar function, sensation nml, motor weakness, No motor deficits Skin Exam: normal color, warm, dry Wound Assessment: Skin/Wound Assessment Wound/Incision Assessment Start: 05/06/25 12:36 Text: Status: Active Freq: Q6H Protocol: Document 05/09/25 08:50 JV (Rec: 05/09/25 09:23 JV [id number]) Wound/Incision Assessment Right Parietal Wound Assessment Shift Assessment Wound Type Laceration Wound Stage Non Pressure Wound Drainage Amount None General Appearance Well Approximated,Eric Intact,Open to air Comment eric intact x2, remains true Wound Photo Photo Taken No Eye Exam: PERRL, EOMI, eyes nml inspection Ears, Nose, Throat Exam: normal ENT inspection, pharynx normal, moist mucous membranes Neck Exam: normal inspection, non-tender, supple, full range of motion Respiratory Exam: normal breath sounds, lungs clear, No respiratory distress Cardiovascular Exam: regular rate/rhythm, normal heart sounds Gastrointestinal/Abdomen Exam: soft, No tenderness, No mass Extremity Exam: normal inspection, normal range of motion Back Exam: normal inspection, normal range of motion, No CVA tenderness, No vertebral tenderness Pelvic Exam: deferred Rectal Exam: deferred Objective Data Vital Signs: Vital Signs - 24 hr Temp Pulse Resp BP Pulse Ox 05/09/25 08:00 97.9 F 86 16 118/51 93 L 05/09/25 07:23 93 L 05/09/25 03:53 97.4 F 77 16 84/54 90 L 05/08/25 23:50 97.9 F 76 18 97/60 89 L 05/08/25 20:00 97.9 F 76 18 71/50 90 L 05/08/25 18:22 93 L 05/08/25 15:57 97.6 F 74 16 131/63 92 L 05/08/25 11:49 97.7 F 78 18 105/59 98 Pain Assessment - Last Documented Pain Intensity 0 Intake and Output: Intake & Output 05/06/25 05/07/25 05/08/25 05/09/25 11:59 11:59 11:59 11:59 Intake Total 1440 960 450 Output Total 1500 1900 425 Balance -60 -940 25 Weight 113.2 kg 121 kg 120.4 kg Lab Results: Lab Results-Last 24 Hours 05/09/25 05/09/25 05/09/25 Range/Units 05:40 05:40 07:30 WBC 8.3 (3.98-10.04) x10^3/uL RBC 4.49 (3.93-5.22) x10^6/uL Hgb 14.1 (11.2-15.7) g/dL Hct 43.9 (34.1-44.9) % MCV 97.8 H (79.4-94.8) fL MCH 31.4 (25.6-32.2) pg MCHC 32.1 L (32.2-35.5) g/dL RDW 13.3 (11.7-14.4) % Plt Count 206 (182-369) x10^3/uL MPV 10.9 (9.4-12.3) fL Sodium 135 (135-145) mmol/L Potassium 4.2 (3.5-5.1) mmol/L Chloride 100 (98-107) mmol/L Carbon Dioxide 29 (22-30) mmol/L Anion Gap 10.1 (5-15) MEQ/L BUN 23 H (7-17) mg/dL Creatinine 0.70 (0.52-1.04) mg/dL Estimated GFR 87.9 ML/MIN Glucose 115 H (74-106) mg/dL POC Glucometer 123 H (74 to 106) mg/dL Calcium 9.7 (8.4-10.2) mg/dL Total Bilirubin 0.60 (0.2-1.3) mg/dL AST 21 (14-36) U/L ALT 12 (0-35) U/L Alkaline Phosphatase 85 (38-126) U/L Serum Total Protein 6.8 (6.3-8.2) g/dL Albumin 3.7 (3.5-5.0) g/dL Medications: Medications Generic Name Dose Route Start Last Admin Trade Name Freq PRN Reason Stop Dose Admin Bumetanide 0.5 mg 05/08/25 10:00 05/08/25 10:36 Bumetanide 1 Mg Tablet PO 06/07/25 09:59 0.5 mg QAM NATALI Administration Citalopram Hydrobromide 5 mg 05/06/25 22:00 05/08/25 22:33 Citalopram Hydrobromide 20 Mg Tablet PO 06/05/25 21:59 5 mg HS NATALI Administration Cyanocobalamin 1,000 mcg 05/06/25 13:00 05/08/25 10:38 Cyanocobalamin 500 Mcg Tablet PO 06/05/25 12:59 1,000 mcg DAILY NATALI Administration Levetiracetam 500 mg 05/06/25 22:00 05/08/25 22:35 Levetiracetam 500 Mg Tablet PO 06/05/25 21:59 500 mg HS NATALI Administration Mirabegron 50 mg 05/06/25 22:00 05/08/25 22:35 Mirabegron 25 Mg Tab.Er.24h PO 06/05/25 21:59 50 mg HS NATALI Administration Nicotine 21 mg 05/06/25 12:30 05/08/25 10:35 Nicotine 21 Mg/Patch Patch TOP 06/05/25 12:29 Not Given Q24H10 NATALI Rivaroxaban 2.5 mg 05/06/25 13:00 05/08/25 22:36 Rivaroxaban 10 Mg Tablet PO 06/05/25 12:59 2.5 mg BID NATALI Administration Simvastatin 40 mg 05/06/25 22:00 05/08/25 22:34 Simvastatin 20 Mg Tablet PO 06/05/25 21:59 40 mg HS NATALI Administration Spironolactone 25 mg 05/08/25 10:00 05/08/25 10:37 Spironolactone 25 Mg Tablet PO 06/07/25 09:59 25 mg QAM NATALI Administration Discontinued Medications Generic Name Dose Route Start Last Admin Trade Name Micaela PRN Reason Stop Dose Admin Albuterol Sulfate 2 puff 05/06/25 12:31 Albuterol Common Canister Inhaler IH 06/05/25 12:30 Q4H PRN PRN SHORTNESS OF BREATH Bumetanide 0.5 mg 05/06/25 22:00 05/06/25 22:43 Bumetanide 1 Mg Tablet PO 06/05/25 21:59 Not Given HS NATALI Ceftriaxone Sodium 1 gm in 100 mls @ 200 mls/hr 05/06/25 18:00 05/06/25 20:37 Rocephin 1 Gm / 100 Ml Nacl IV 06/05/25 17:59 200 mls/hr Q24H10 NATALI Administration Non-Formulary Medication 0 tab 05/06/25 12:45 Cholecalciferol (Vitamin D3) [Vitamin D] .ROUTE 06/05/25 12:44 .COMPLEX NATALI Spironolactone 25 mg 05/06/25 22:00 05/06/25 22:46 Spironolactone 25 Mg Tablet PO 06/05/25 21:59 Not Given HS NATALI Multi-Disciplinary Progress Notes: Multi-Disciplinary Progress Notes 05/08/25 23:19 Respiratory Note by Mia Pires Pt placed on home unit cpap with nasal pillows at this time. Overnight POX applied and pt is on room air. Initialized on 05/08/25 23:19 - END OF NOTE Assessment/Plan (1) UTI (urinary tract infection) Current Visit: Yes Status: Acute Code(s): N39.0 - URINARY TRACT INFECTION, SITE NOT SPECIFIED (2) Leukocytosis Current Visit: Yes Status: Acute Code(s): D72.829 - ELEVATED WHITE BLOOD CELL COUNT, UNSPECIFIED (3) Left ankle sprain Current Visit: Yes Status: Acute Code(s): S93.402A - SPRAIN OF UNSPECIFIED LIGAMENT OF LEFT ANKLE, INIT ENCNTR (4) Scalp laceration Current Visit: Yes Status: Acute (5) Fall with no significant injury Current Visit: Yes Status: Acute Code(s): W19.XXXA - UNSPECIFIED FALL, INITIAL ENCOUNTER (6) Hemiparesis Current Visit: No Status: Chronic Code(s): G81.90 - HEMIPLEGIA, UNSPECIFIED AFFECTING UNSPECIFIED SIDE (7) Sleep apnea Current Visit: Yes Status: Acute Code(s): G47.30 - SLEEP APNEA, UNSPECIFIED (8) Chronic anticoagulation Current Visit: Yes Status: Acute Code(s): Z79.01 - CONTROL CLERK HEAD (CURRENT) USE OF ANTICOAGULANTS (9) Hyperlipidemia Current Visit: Yes Status: Chronic Code(s): E78.5 - HYPERLIPIDEMIA, UNSPECIFIED (10) Seizure disorder Current Visit: Yes Status: Chronic Code(s): G40.909 - EPILEPSY, UNSP, NOT INTRACTABLE, WITHOUT STATUS EPILEPTICUS (11) Morbid obesity with BMI of 45.0-49.9, adult Current Visit: Yes Status: Chronic Assessment & Plan: 1) UTI (urinary tract infection) Current Visit: Yes Status: Acute Assessment & Plan: - Ceftriaxone started IV - CBC, CMP, UA reviewed - UC negative - IV antibiotic stopped Code(s): N39.0 - URINARY TRACT INFECTION, SITE NOT SPECIFIED (2) Leukocytosis Current Visit: Yes Status: Acute Assessment & Plan: - WBC 12.8- trend - CBC, CMP reviewed - XR's reviewed - UA +- see plan 05/07 - WBC 10.1 - CBC, CMP reviewed Code(s): D72.829 - ELEVATED WHITE BLOOD CELL COUNT, UNSPECIFIED (3) Left ankle sprain Current Visit: Yes Status: Acute Assessment & Plan: - Rice techniques - Ankle wrapped - ICE pack in place - XR reviewed 05/07 - Podiatry consult - PT would like walking boot- ordered by podiatry - CM for [facility] - Pt did not do well with PT today - Consider rehab placement Code(s): S93.402A - SPRAIN OF UNSPECIFIED LIGAMENT OF LEFT ANKLE, INIT ENCNTR (4) Scalp laceration Current Visit: Yes Status: Acute Assessment & Plan: - 2:2 fall - Eric in place (5) Fall with no significant injury Current Visit: Yes Status: Acute Assessment & Plan: - Xr's reviewed - [place] x2 right side of head for head lac. - CT cervical spine and CT head negative for acute concern - PT eval Code(s): W19.XXXA - UNSPECIFIED FALL, INITIAL ENCOUNTER (6) Hemiparesis Current Visit: No Status: Chronic Assessment & Plan: - Chronic left side weakness- at baseline Code(s): G81.90 - HEMIPLEGIA, UNSPECIFIED AFFECTING UNSPECIFIED SIDE (7) Sleep apnea Current Visit: Yes Status: Acute Assessment & Plan: - Cpap at night - Chronic Code(s): G47.30 - SLEEP APNEA, UNSPECIFIED (8) Chronic anticoagulation Current Visit: Yes Status: Acute Assessment & Plan: - Continue Xarelto Code(s): Z79.01 - CONTROL CLERK HEAD (CURRENT) USE OF ANTICOAGULANTS (9) Hyperlipidemia Current Visit: Yes Status: Chronic Assessment & Plan: - Continue statin Code(s): E78.5 - HYPERLIPIDEMIA, UNSPECIFIED (10) Seizure disorder Current Visit: Yes Status: Chronic Assessment & Plan: - No recent seizure reported - Continue home med Code(s): G40.909 - EPILEPSY, UNSP, NOT INTRACTABLE, WITHOUT STATUS EPILEPTICUS (11) Morbid obesity with BMI of 45.0-49.9, adult Current Visit: Yes Status: Chronic Assessment & Plan: - Advised diet and exercise control Code(s): E66.01 - MORBID (SEVERE) OBESITY DUE TO EXCESS CALORIES; Z68.42 - BODY MASS INDEX [BMI] 45.0-49.9, ADULT Code(s): E66.01 - MORBID (SEVERE) OBESITY DUE TO EXCESS CALORIES; Z68.42 - BODY MASS INDEX [BMI] 45.0-49.9, ADULT (12) Hyponatremia Current Visit: Yes Status: Acute Assessment & Plan: - NA+ 130- trend - 1, 800 fluid restriction Code(s): E87.1 - HYPO-OSMOLALITY AND HYPONATREMIA (13) Weakness Current Visit: Yes Status: Acute Assessment & Plan: - Acute on chronic - PT eval and treat - Nursing to walk on the weekeneds - If pt does better she may d/c home, if not may d/c to rehab when accepted - CM assistance with placement VTE:Alizato Next of Kin: child- Maryanne Vásquez [phone] D/C plan: Pending placement Code status: Full Plan of care time> 40 minutes Code(s): R53.1 - WEAKNESS
--- NOTE | 2025-05-09 09:48 | PCM.NOTE ---
Date and Time: 05/09/25 0942 Subjective Assessment: 05/06/25 is a 80-year-old female with a history of seizure disorder, morbid obesity, hypertension, hyperlipidemia, and chronic left hemiplegia secondary to a childhood traumatic brain injury. She is a daily tobacco smoker and has recently started a nicotine patch. She was brought to the emergency department by inside sales specialist services following a fall earlier this morning. She initially called for lift assistance and later called again due to scalp bleeding and increased pain in her right wrist and left foot and ankle. The patient ordinarily uses a walker but is currently unable to stand due to pain in her left foot and ankle. She lives alone and denies any loss of consciousness. Laboratory results show WBC 12.8. CT head was negative for acute findings, and all other X-rays reviewed were also negative. Physical therapy evaluation has been ordered to assess home needs, and the patient is likely to be discharged in the morning. 05/07/25 Pt resting in bed. She is has been refusing to get up in a chair. She did walk with PT yesterday and has some weakness. Pt states she wants to go to rehab, case management to dicsuss with pt. She will quality for [facility]. UC negative and antibiotic stopped. Will put in an order for o2 titration study with RT OP. She has a nasal CPAP but oxygen dropped last night in the 80's with this, and O2 applied. Podiatry consult ordered d/t foot pain, Cam boot ordered. Pt did not do well with PT cortezbennie today. CM to set up Rehab OP, unless pt does well over the weekend then she could possible go home. 05/08/25 Patient resting in bed. She has been placed on fluid restriction due to sodium level of 130. She continues to report weakness. Staff to ambulate patient three times daily and assist her in sitting up in a chair. If she tolerates activity well, discharge home will be considered. Patient expresses desire to return home but reports feeling too weak at present. She denies any additional concerns at this time. 05/09/25 Pt resting in bed. She states she was up and walking around in her room yesterday. She was able to walk to the door with assist several times. She states she feels like she is doing better but not able to go home. Na+ 135 and fluid restriction stopped. Pt to get up and walk around again today with staff. If she does well she could d/c home vs rehab. - Review of Systems Constitutional: Weight Loss, No Fever, No Chills Eyes: No Symptoms Ears, Nose, & Throat: No Symptoms Respiratory: No Cough, No Short Of Breath Cardiac: No Chest Pain, No Edema, No Syncope Abdominal/Gastrointestinal: No Abdominal Pain, No Nausea, No Vomiting, No Diarrhea Genitourinary Symptoms: No Dysuria Musculoskeletal: No Back Pain, No Neck Pain Skin: No Rash Neurological: No Dizziness, No Focal Weakness, No Sensory Changes Psychological: No Symptoms Endocrine: No Symptoms Hematologic/Lymphatic: No Symptoms Immunological/Allergic: No Symptoms Objective Exam General Appearance: no apparent distress, alert, obese Neurologic Exam: alert, oriented x 3, cooperative, normal mood/affect, nml cerebellar function, sensation nml, motor weakness, other (at baseline neuro function), No motor deficits Skin Exam: normal color, warm, dry Wound Assessment: Skin/Wound Assessment Wound/Incision Assessment Start: 05/06/25 12:36 Text: Status: Active Freq: Q6H Protocol: Document 05/09/25 08:50 JV (Rec: 05/09/25 09:23 JV [id number]) Wound/Incision Assessment Right Parietal Wound Assessment Shift Assessment Wound Type Laceration Wound Stage Non Pressure Wound Drainage Amount None General Appearance Well Approximated,Graham Intact,Open to air Comment eric intact x2, remains true Wound Photo Photo Taken No Eye Exam: PERRL, EOMI, eyes nml inspection Ears, Nose, Throat Exam: normal ENT inspection, pharynx normal, moist mucous membranes Neck Exam: normal inspection, non-tender, supple, full range of motion Respiratory Exam: normal breath sounds, lungs clear, No respiratory distress Cardiovascular Exam: regular rate/rhythm, normal heart sounds Gastrointestinal/Abdomen Exam: soft, No tenderness, No mass Extremity Exam: normal inspection, normal range of motion Back Exam: normal inspection, normal range of motion, No CVA tenderness, No vertebral tenderness Pelvic Exam: deferred Rectal Exam: deferred Objective Data Vital Signs: Vital Signs - 24 hr Temp Pulse Resp BP Pulse Ox 05/09/25 08:00 97.9 F 86 16 118/51 93 L 05/09/25 07:23 93 L 05/09/25 03:53 97.4 F 77 16 84/54 90 L 08/30/25 23:50 97.9 F 76 18 97/60 89 L 05/08/25 20:00 97.9 F 76 18 71/50 90 L 05/08/25 18:22 93 L 05/08/25 15:57 97.6 F 74 16 131/63 92 L 05/08/25 11:49 97.7 F 78 18 105/59 98 Pain Assessment - Last Documented Pain Intensity 0 Intake and Output: Intake & Output 05/06/25 05/07/25 05/08/25 05/09/25 11:59 11:59 11:59 11:59 Intake Total 1440 960 930 Output Total 1500 1900 425 Balance -60 -940 505 Weight 113.2 kg 121 kg 120.4 kg Lab Results: Lab Results-Last 24 Hours 05/09/25 05/09/25 05/09/25 Range/Units 05:40 05:40 07:30 WBC 8.3 (3.98-10.04) x10^3/uL RBC 4.49 (3.93-5.22) x10^6/uL Hgb 14.1 (11.2-15.7) g/dL Hct 43.9 (34.1-44.9) % MCV 97.8 H (79.4-94.8) fL MCH 31.4 (25.6-32.2) pg MCHC 32.1 L (32.2-35.5) g/dL RDW 13.3 (11.7-14.4) % Plt Count 206 (182-369) x10^3/uL MPV 10.9 (9.4-12.3) fL Sodium 135 (135-145) mmol/L Potassium 4.2 (3.5-5.1) mmol/L Chloride 100 (98-107) mmol/L Carbon Dioxide 29 (22-30) mmol/L Anion Gap 10.1 (5-15) MEQ/L BUN 23 H (7-17) mg/dL Creatinine 0.70 (0.52-1.04) mg/dL Estimated GFR 87.9 ML/MIN Glucose 115 H (74-106) mg/dL POC Glucometer 123 H (74 to 106) mg/dL Calcium 9.7 (8.4-10.2) mg/dL Total Bilirubin 0.60 (0.2-1.3) mg/dL AST 21 (14-36) U/L ALT 12 (0-35) U/L Alkaline Phosphatase 85 (38-126) U/L Serum Total Protein 6.8 (6.3-8.2) g/dL Albumin 3.7 (3.5-5.0) g/dL Medications: Medications Generic Name Dose Route Start Last Admin Trade Name Micaela PRN Reason Stop Dose Admin Bumetanide 0.5 mg 05/08/25 10:00 05/08/25 10:36 Bumetanide 1 Mg Tablet PO 06/07/25 09:59 0.5 mg QAM ANTALI Administration Citalopram Hydrobromide 5 mg 05/06/25 22:00 05/08/25 22:33 Citalopram Hydrobromide 20 Mg Tablet PO 06/05/25 21:59 5 mg HS NATALI Administration Cyanocobalamin 1,000 mcg 05/06/25 13:00 05/08/25 10:38 Cyanocobalamin 500 Mcg Tablet PO 06/05/25 12:59 1,000 mcg DAILY NATALI Administration Levetiracetam 500 mg 05/06/25 22:00 05/08/25 22:35 Levetiracetam 500 Mg Tablet PO 06/05/25 21:59 500 mg HS NATALI Administration Mirabegron 50 mg 05/06/25 22:00 05/08/25 22:35 Mirabegron 25 Mg Tab.Er.24h PO 06/05/25 21:59 50 mg HS NATALI Administration Nicotine 21 mg 05/06/25 12:30 05/08/25 10:35 Nicotine 21 Mg/Patch Patch TOP 06/05/25 12:29 Not Given Q24H10 NATALI Rivaroxaban 2.5 mg 05/06/25 13:00 05/08/25 22:36 Rivaroxaban 10 Mg Tablet PO 06/05/25 12:59 2.5 mg BID NATALI Administration Simvastatin 40 mg 05/06/25 22:00 05/08/25 22:34 Simvastatin 20 Mg Tablet PO 06/05/25 21:59 40 mg HS NATALI Administration Spironolactone 25 mg 05/08/25 10:00 05/08/25 10:37 Spironolactone 25 Mg Tablet PO 06/07/25 09:59 25 mg QAM NATALI Administration Discontinued Medications Generic Name Dose Route Start Last Admin Trade Name Freq PRN Reason Stop Dose Admin Albuterol Sulfate 2 puff 05/06/25 12:31 Albuterol Common Canister Inhaler IH 06/05/25 12:30 Q4H PRN PRN SHORTNESS OF BREATH Bumetanide 0.5 mg 05/06/25 22:00 05/06/25 22:43 Bumetanide 1 Mg Tablet PO 06/05/25 21:59 Not Given HS NATALI Ceftriaxone Sodium 1 gm in 100 mls @ 200 mls/hr 05/06/25 18:00 05/06/25 20:37 Rocephin 1 Gm / 100 Ml Nacl IV 06/05/25 17:59 200 mls/hr Q24H10 NATALI Administration Non-Formulary Medication 0 tab 05/06/25 12:45 Cholecalciferol (Vitamin D3) [Vitamin D] .ROUTE 06/05/25 12:44 .COMPLEX NATALI Spironolactone 25 mg 05/06/25 22:00 05/06/25 22:46 Spironolactone 25 Mg Tablet PO 06/05/25 21:59 Not Given HS NATALI Multi-Disciplinary Progress Notes: Multi-Disciplinary Progress Notes 05/08/25 23:19 Respiratory Note by Mia Pires Pt placed on home unit cpap with nasal pillows at this time. Overnight POX applied and pt is on room air. Initialized on 05/08/25 23:19 - END OF NOTE Assessment/Plan (1) UTI (urinary tract infection) Current Visit: Yes Status: Acute Code(s): N39.0 - URINARY TRACT INFECTION, SITE NOT SPECIFIED (2) Leukocytosis Current Visit: Yes Status: Acute Code(s): D72.829 - ELEVATED WHITE BLOOD CELL COUNT, UNSPECIFIED (3) Left ankle sprain Current Visit: Yes Status: Acute Code(s): S93.402A - SPRAIN OF UNSPECIFIED LIGAMENT OF LEFT ANKLE, INIT ENCNTR (4) Scalp laceration Current Visit: Yes Status: Acute (5) Fall with no significant injury Current Visit: Yes Status: Acute Code(s): W19.XXXA - UNSPECIFIED FALL, INITIAL ENCOUNTER (6) Hemiparesis Current Visit: No Status: Chronic Code(s): G81.90 - HEMIPLEGIA, UNSPECIFIED AFFECTING UNSPECIFIED SIDE (7) Sleep apnea Current Visit: Yes Status: Acute Code(s): G47.30 - SLEEP APNEA, UNSPECIFIED (8) Chronic anticoagulation Current Visit: Yes Status: Acute Code(s): Z79.01 - HEARING INSTRUMENT SPECIALIST (CURRENT) USE OF ANTICOAGULANTS (9) Hyperlipidemia Current Visit: Yes Status: Chronic Code(s): E78.5 - HYPERLIPIDEMIA, UNSPECIFIED (10) Seizure disorder Current Visit: Yes Status: Chronic Code(s): G40.909 - EPILEPSY, UNSP, NOT INTRACTABLE, WITHOUT STATUS EPILEPTICUS (11) Morbid obesity with BMI of 45.0-49.9, adult Current Visit: Yes Status: Chronic Code(s): E66.01 - MORBID (SEVERE) OBESITY DUE TO EXCESS CALORIES; Z68.42 - BODY MASS INDEX [BMI] 45.0-49.9, ADULT (12) Hyponatremia Current Visit: Yes Status: Acute Code(s): E87.1 - HYPO-OSMOLALITY AND HYPONATREMIA (13) Weakness Current Visit: Yes Status: Acute Assessment & Plan: 1) UTI (urinary tract infection) Current Visit: Yes Status: Acute Assessment & Plan: - Ceftriaxone started IV - CBC, CMP, UA reviewed - UC negative - IV antibiotic stopped Code(s): N39.0 - URINARY TRACT INFECTION, SITE NOT SPECIFIED (2) Leukocytosis Current Visit: Yes Status: Acute Assessment & Plan: - WBC 12.8- trend - CBC, CMP reviewed - XR's reviewed - UA +- see plan 05/07 - WBC 10.1 - CBC, CMP reviewed 05/08 - resolved Code(s): D72.829 - ELEVATED WHITE BLOOD CELL COUNT, UNSPECIFIED (3) Left ankle sprain Current Visit: Yes Status: Acute Assessment & Plan: - Rice techniques - Ankle wrapped - ICE pack in place - XR reviewed 05/07 - Podiatry consult - PT would like walking boot- ordered by podiatry - for [facility] - Pt did not do well with PT today - Consider rehab placement Code(s): S93.402A - SPRAIN OF UNSPECIFIED LIGAMENT OF LEFT ANKLE, INIT ENCNTR (4) Scalp laceration Current Visit: Yes Status: Acute Assessment & Plan: - 2:2 fall - Graham in place (5) Fall with no significant injury Current Visit: Yes Status: Acute Assessment & Plan: - Xr's reviewed - Eric x2 right side of head for head lac. - CT cervical spine and CT head negative for acute concern - PT eval Code(s): W19.XXXA - UNSPECIFIED FALL, INITIAL ENCOUNTER (6) Hemiparesis Current Visit: No Status: Chronic Assessment & Plan: - Chronic left side weakness- at baseline Code(s): G81.90 - HEMIPLEGIA, UNSPECIFIED AFFECTING UNSPECIFIED SIDE (7) Sleep apnea Current Visit: Yes Status: Acute Assessment & Plan: - Cpap at night - Chronic Code(s): G47.30 - SLEEP APNEA, UNSPECIFIED (8) Chronic anticoagulation Current Visit: Yes Status: Acute Assessment & Plan: - Continue Xarelto Code(s): Z79.01 - SENIOR CARE (CURRENT) USE OF ANTICOAGULANTS (9) Hyperlipidemia Current Visit: Yes Status: Chronic Assessment & Plan: - Continue statin Code(s): E78.5 - HYPERLIPIDEMIA, UNSPECIFIED (10) Seizure disorder Current Visit: Yes Status: Chronic Assessment & Plan: - No recent seizure reported - Continue home med Code(s): G40.909 - EPILEPSY, UNSP, NOT INTRACTABLE, WITHOUT STATUS EPILEPTICUS (11) Morbid obesity with BMI of 45.0-49.9, adult Current Visit: Yes Status: Chronic Assessment & Plan: - Advised diet and exercise control Code(s): E66.01 - MORBID (SEVERE) OBESITY DUE TO EXCESS CALORIES; Z68.42 - BODY MASS INDEX [BMI] 45.0-49.9, ADULT (12) Hyponatremia Current Visit: Yes Status: Acute Assessment & Plan: - NA+ 130- trend - 1, 800 fluid restriction 05/09 -resolved - Fluid restriction stopped Code(s): E87.1 - HYPO-OSMOLALITY AND HYPONATREMIA (13) Weakness Current Visit: Yes Status: Acute Assessment & Plan: - Acute on chronic - PT eval and treat - Nursing to walk on the weekend - If pt does better she may d/c home, if not may d/c to rehab when accepted - CM assistance with placement VTE:Xaraymondto Next of Kin: child- Maryanne Vásquez [phone] D/C plan: Pending placement Code status: Full Plan of care time> 40 minutes Code(s): R53.1 - WEAKNESS Code(s): R53.1 - WEAKNESS
[2025-05-10 06:19] LABS: Hematocrit 43.2 % (34.1-44.9); Hemoglobin 14.2 g/dL (11.2-15.7); Mean Corpuscular Hemoglobin 32.0 pg (25.6-32.2); Mean Corpuscular Hgb Concent. 32.9 g/dL (32.2-35.5); Platelet Count 189 x10^3/uL (182-369); Red Blood Count 4.44 x10^6/uL (3.93-5.22); White Blood Count 7.6 x10^3/uL (3.98-10.04)
[2025-05-10 06:46] LABS: Calcium 9.8 mg/dL (8.4-10.2); Carbon Dioxide 30.0 mmol/L (22-30); Creatinine 1 0.68 mg/dL (0.52-1.04); EST GLOMERULAR FILTRATION RATE 88.5 ML/MIN; Glucose 107.0 mg/dL (74-106); Potassium 4.3 mmol/L (3.5-5.1); SGOT/AST 21.0 U/L (14-36); SGPT/ALT 13.0 U/L (0-35); Total Protein 6.8 g/dL (6.3-8.2)
--- NOTE | 2025-05-10 11:26 | PCM.NOTE ---
Date and Time: 05/10/25 1120 Subjective Assessment: 05/06/25 is a 80-year-old female with a history of seizure disorder, morbid obesity, hypertension, hyperlipidemia, and chronic left hemiplegia secondary to a childhood traumatic brain injury. She is a daily tobacco smoker and has recently started a nicotine patch. She was brought to the emergency department by [employer] engineering technologist services following a fall earlier this morning. She initially called for lift assistance and later called again due to scalp bleeding and increased pain in her right wrist and left foot and ankle. The patient ordinarily uses a walker but is currently unable to stand due to pain in her left foot and ankle. She lives alone and denies any loss of consciousness. Laboratory results show WBC 12.8. CT head was negative for acute findings, and all other X-rays reviewed were also negative. Physical therapy evaluation has been ordered to assess home needs, and the patient is likely to be discharged in the morning. 05/07/25 Pt resting in bed. She is has been refusing to get up in a chair. She did walk with PT yesterday and has some weakness. Pt states she wants to go to rehab, case management to dicsuss with pt. She will quality for [facility]. UC negative and antibiotic stopped. Will put in an order for o2 titration study with RT OP. She has a nasal CPAP but oxygen dropped last night in the 80's with this, and O2 applied. Podiatry consult ordered d/t foot pain, Cam boot ordered. Pt did not do well with PT cortezbennie today. CM to set up Rehab OP, unless pt does well over the weekend then she could possible go home. 05/08/25 Patient resting in bed. She has been placed on fluid restriction due to sodium level of 130. She continues to report weakness. Staff to ambulate patient three times daily and assist her in sitting up in a chair. If she tolerates activity well, discharge home will be considered. Patient expresses desire to return home but reports feeling too weak at present. She denies any additional concerns at this time. 05/09/25 Pt resting in bed. She states she was up and walking around in her room yesterday. She was able to walk to the door with assist several times. She states she feels like she is doing better but not able to go home. Na+ 135 and fluid restriction stopped. Pt to get up and walk around again today with staff. If she does well she could d/c home vs rehab. 05/10/25 Pt resting in bed, she states she is very tired and did not sleep well last night. Overnight pulse ox reviewed and she will require oxygen with CPAP at night at d/c. She also has an OP O2 titration study scheduled OP with RT. She has continued weakness and wants to go to rehab as she feels she is not strong enough to go home. She denies CP, SOB, abd. pain, N/V/D. - Review of Systems Constitutional: No Fever, No Chills Eyes: No Symptoms Ears, Nose, & Throat: No Symptoms Respiratory: No Cough, No Short Of Breath Cardiac: Edema (Left foot), No Chest Pain, No Syncope Abdominal/Gastrointestinal: No Abdominal Pain, No Nausea, No Vomiting, No Diarrhea Genitourinary Symptoms: No Dysuria Musculoskeletal: No Back Pain, No Neck Pain Skin: No Rash Neurological: Other (weakness), No Dizziness, No Focal Weakness, No Sensory Changes Psychological: No Symptoms Endocrine: No Symptoms Hematologic/Lymphatic: No Symptoms Immunological/Allergic: No Symptoms Objective Exam General Appearance: no apparent distress, alert, obese Neurologic Exam: alert, oriented x 3, cooperative, normal mood/affect, nml cerebellar function, sensation nml, motor weakness, No motor deficits Skin Exam: normal color, warm, dry Wound Assessment: Skin/Wound Assessment Wound/Incision Assessment Start: 05/06/25 12:36 Text: Status: Active Freq: Q6H Protocol: Document 05/10/25 02:00 LB (Rec: 05/10/25 02:55 LB [id number]) Wound/Incision Assessment Right Parietal Wound Assessment Shift Assessment Wound Type Laceration Wound Stage Non Pressure Wound Drainage Amount None General Appearance Well Approximated,Eric Intact,Open to air Wound Photo Photo Taken No Eye Exam: PERRL, EOMI, eyes nml inspection Ears, Nose, Throat Exam: normal ENT inspection, pharynx normal, moist mucous membranes Neck Exam: normal inspection, non-tender, supple, full range of motion Respiratory Exam: normal breath sounds, lungs clear, No respiratory distress Cardiovascular Exam: regular rate/rhythm, normal heart sounds Gastrointestinal/Abdomen Exam: soft, No tenderness, No mass Extremity Exam: normal inspection, normal range of motion, tenderness (LLE, edema) Back Exam: normal inspection, normal range of motion, No CVA tenderness, No vertebral tenderness Pelvic Exam: deferred Rectal Exam: deferred Objective Data Vital Signs: Vital Signs - 24 hr Temp Pulse Resp BP Pulse Ox 05/10/25 10:03 94 L 05/10/25 07:49 97.9 F 74 22 142/81 95 05/10/25 04:02 97.5 F 76 22 124/68 93 L 05/10/25 00:13 94 L 05/09/25 23:31 97.8 F 73 18 141/91 97 05/09/25 19:45 97.8 F 77 20 140/78 93 L 05/09/25 16:00 97.8 F 75 16 88/35 93 L 05/09/25 11:40 97.8 F 70 16 179/99 96 Pain Assessment - Last Documented Pain Intensity 0 Intake and Output: Intake & Output 05/07/25 05/08/25 05/09/25 05/10/25 11:59 11:59 11:59 11:59 Intake Total 1440 041 354 6825 Output Total 1500 1900 425 Balance -60 -707 099 8121 Weight 121 kg 120.4 kg 119.8 kg Lab Results: Lab Results-Last 24 Hours 05/10/25 05/10/25 Range/Units 05:00 06:23 WBC 7.6 (3.98-10.04) x10^3/uL RBC 4.44 (3.93-5.22) x10^6/uL Hgb 14.2 (11.2-15.7) g/dL Hct 43.2 (34.1-44.9) % MCV 97.3 H (79.4-94.8) fL MCH 32.0 (25.6-32.2) pg MCHC 32.9 (32.2-35.5) g/dL RDW 13.2 (11.7-14.4) % Plt Count 189 (182-369) x10^3/uL MPV 10.4 (9.4-12.3) fL Sodium 135 (135-145) mmol/L Potassium 4.3 (3.5-5.1) mmol/L Chloride 100 (98-107) mmol/L Carbon Dioxide 30 (22-30) mmol/L Anion Gap 9.3 (5-15) MEQ/L BUN 24 H (7-17) mg/dL Creatinine 0.68 (0.52-1.04) mg/dL Estimated GFR 88.5 ML/MIN Glucose 107 H (74-106) mg/dL Calcium 9.8 (8.4-10.2) mg/dL Total Bilirubin 0.50 (0.2-1.3) mg/dL AST 21 (14-36) U/L ALT 13 (0-35) U/L Alkaline Phosphatase 88 (38-126) U/L Serum Total Protein 6.8 (6.3-8.2) g/dL Albumin 3.6 (3.5-5.0) g/dL Medications: Medications Generic Name Dose Route Start Last Admin Trade Name Jose Mq PRN Reason Stop Dose Admin Bumetanide 0.5 mg 05/08/25 10:00 05/09/25 10:27 Bumetanide 1 Mg Tablet PO 06/07/25 09:59 0.5 mg QAM NATALI Administration Citalopram Hydrobromide 5 mg 05/06/25 22:00 05/09/25 22:53 Citalopram Hydrobromide 20 Mg Tablet PO 06/05/25 21:59 5 mg HS NATALI Administration Cyanocobalamin 1,000 mcg 05/06/25 13:00 05/09/25 10:27 Cyanocobalamin 500 Mcg Tablet PO 06/05/25 12:59 1,000 mcg DAILY NATALI Administration Levetiracetam 500 mg 05/06/25 22:00 05/09/25 22:52 Levetiracetam 500 Mg Tablet PO 06/05/25 21:59 500 mg HS NATALI Administration Mirabegron 50 mg 05/06/25 22:00 05/09/25 22:53 Mirabegron 25 Mg Tab.Er.24h PO 06/05/25 21:59 50 mg HS NATALI Administration Nicotine 21 mg 05/06/25 12:30 05/10/25 10:42 Nicotine 21 Mg/Patch Patch TOP 06/05/25 12:29 Not Given Q24H10 NATALI Rivaroxaban 2.5 mg 05/06/25 13:00 05/09/25 22:53 Rivaroxaban 10 Mg Tablet PO 06/05/25 12:59 2.5 mg BID NATALI Administration Simvastatin 40 mg 05/06/25 22:00 05/09/25 22:52 Simvastatin 20 Mg Tablet PO 06/05/25 21:59 40 mg HS NATALI Administration Spironolactone 25 mg 05/08/25 10:00 05/09/25 10:27 Spironolactone 25 Mg Tablet PO 06/07/25 09:59 25 mg QAM NATALI Administration Discontinued Medications Generic Name Dose Route Start Last Admin Trade Name Freq PRN Reason Stop Dose Admin Albuterol Sulfate 2 puff 05/06/25 12:31 Albuterol Common Canister Inhaler IH 06/05/25 12:30 Q4H PRN PRN SHORTNESS OF BREATH Bumetanide 0.5 mg 05/06/25 22:00 05/06/25 22:43 Bumetanide 1 Mg Tablet PO 06/05/25 21:59 Not Given HS [facility] Ceftriaxone Sodium 1 gm in 100 mls @ 200 mls/hr 05/06/25 18:00 05/06/25 20:37 Rocephin 1 Gm / 100 Ml Nacl IV 06/05/25 17:59 200 mls/hr Q24H10 NATALI Administration Non-Formulary Medication 0 tab 05/06/25 12:45 Cholecalciferol (Vitamin D3) [Vitamin D] .ROUTE 06/05/25 12:44 .COMPLEX NATALI Spironolactone 25 mg 05/06/25 22:00 05/06/25 22:46 Spironolactone 25 Mg Tablet PO 06/05/25 21:59 Not Given HS [facility] Assessment/Plan (1) UTI (urinary tract infection) Current Visit: Yes Status: Resolved Code(s): N39.0 - URINARY TRACT INFECTION, SITE NOT SPECIFIED (2) Leukocytosis Current Visit: Yes Status: Resolved Code(s): D72.829 - ELEVATED WHITE BLOOD CELL COUNT, UNSPECIFIED (3) Left ankle sprain Current Visit: Yes Status: Acute Code(s): S93.402A - SPRAIN OF UNSPECIFIED LIGAMENT OF LEFT ANKLE, INIT ENCNTR (4) Scalp laceration Current Visit: Yes Status: Acute (5) Fall with no significant injury Current Visit: Yes Status: Acute Code(s): W19.XXXA - UNSPECIFIED FALL, INITIAL ENCOUNTER (6) Hemiparesis Current Visit: No Status: Chronic Code(s): G81.90 - HEMIPLEGIA, UNSPECIFIED AFFECTING UNSPECIFIED SIDE (7) Sleep apnea Current Visit: Yes Status: Chronic Code(s): G47.30 - SLEEP APNEA, UNSPECIFIED (8) Chronic anticoagulation Current Visit: Yes Status: Chronic Code(s): Z79.01 - REWARDS CONSULTANT (CURRENT) USE OF ANTICOAGULANTS (9) Hyperlipidemia Current Visit: Yes Status: Chronic Code(s): E78.5 - HYPERLIPIDEMIA, UNSPECIFIED (10) Seizure disorder Current Visit: Yes Status: Chronic Code(s): G40.909 - EPILEPSY, UNSP, NOT INTRACTABLE, WITHOUT STATUS EPILEPTICUS (11) Morbid obesity with BMI of 45.0-49.9, adult Current Visit: Yes Status: Chronic Code(s): E66.01 - MORBID (SEVERE) OBESITY DUE TO EXCESS CALORIES; Z68.42 - BODY MASS INDEX [BMI] 45.0-49.9, ADULT (12) Hyponatremia Current Visit: Yes Status: Resolved Code(s): E87.1 - HYPO-OSMOLALITY AND HYPONATREMIA (13) Weakness Current Visit: Yes Status: Acute Assessment & Plan: 1) UTI (urinary tract infection) Current Visit: Yes Status: Acute Assessment & Plan: - Ceftriaxone started IV - CBC, CMP, UA reviewed - UC negative - IV antibiotic stopped Code(s): N39.0 - URINARY TRACT INFECTION, SITE NOT SPECIFIED (2) Leukocytosis Current Visit: Yes Status: Acute Assessment & Plan: - WBC 12.8- trend - CBC, CMP reviewed - XR's reviewed - UA +- see plan 05/07 - WBC 10.1 - CBC, CMP reviewed 05/08 - resolved 05/10 - CBC, CMP reviewed Code(s): D72.829 - ELEVATED WHITE BLOOD CELL COUNT, UNSPECIFIED (3) Left ankle sprain Current Visit: Yes Status: Acute Assessment & Plan: - Rice techniques - Ankle wrapped - ICE pack in place - XR reviewed 05/07 - Podiatry consult - PT would like walking boot- ordered by podiatry - CM for [facility] - Pt did not do well with PT today - Consider rehab placement 05/10 - Nursing staff have been walking TID with pt - She has continued weakness and wants to d/c to rehab when able - CM to set up rehab placement - + edema LLE, elevated on pillow, ice pack Code(s): S93.402A - SPRAIN OF UNSPECIFIED LIGAMENT OF LEFT ANKLE, INIT ENCNTR (4) Scalp laceration Current Visit: Yes Status: Acute Assessment & Plan: - 2:2 fall - [address] (5) Fall with no significant injury Current Visit: Yes Status: Acute Assessment & Plan: - XR's reviewed - [place] x2 right side of head for head lac. - CT cervical spine and CT head negative for acute concern - PT eval Code(s): W19.XXXA - UNSPECIFIED FALL, INITIAL ENCOUNTER (6) Hemiparesis Current Visit: No Status: Chronic Assessment & Plan: - Chronic left side weakness- at baseline Code(s): G81.90 - HEMIPLEGIA, UNSPECIFIED AFFECTING UNSPECIFIED SIDE (7) Sleep apnea Current Visit: Yes Status: Acute Assessment & Plan: - Chronic - Cpap at night- uses nasal prong mask and requiring oxygen as O2 has been dropping into the 80's with mask on. - RT changed to full face mask and pt did not tolerate this - Overnight pulse ox ordered and reviewed and pt to use O2 at night - OP titration study with RT ordered and pending Code(s): G47.30 - SLEEP APNEA, UNSPECIFIED (8) Chronic anticoagulation Current Visit: Yes Status: Acute Assessment & Plan: - Continue Xarelto Code(s): Z79.01 - REWARDS CONSULTANT (CURRENT) USE OF ANTICOAGULANTS (9) Hyperlipidemia Current Visit: Yes Status: Chronic Assessment & Plan: - Continue statin Code(s): E78.5 - HYPERLIPIDEMIA, UNSPECIFIED (10) Seizure disorder Current Visit: Yes Status: Chronic Assessment & Plan: - No recent seizure reported - Continue home med Code(s): G40.909 - EPILEPSY, UNSP, NOT INTRACTABLE, WITHOUT STATUS EPILEPTICUS (11) Morbid obesity with BMI of 45.0-49.9, adult Current Visit: Yes Status: Chronic Assessment & Plan: - Advised diet and exercise control Code(s): E66.01 - MORBID (SEVERE) OBESITY DUE TO EXCESS CALORIES; Z68.42 - BODY MASS INDEX [BMI] 45.0-49.9, ADULT (12) Hyponatremia Current Visit: Yes Status: Acute Assessment & Plan: - NA+ 130- trend - 1, 800 fluid restriction 05/09 - resolved - Fluid restriction stopped Code(s): E87.1 - HYPO-OSMOLALITY AND HYPONATREMIA (13) Weakness Current Visit: Yes Status: Acute Assessment & Plan: - Acute on chronic - PT eval and treat - Nursing to walk on the weekend - If pt does better she may d/c home, if not may d/c to rehab when accepted - assistance with placement Code(s): R53.1 - WEAKNESS VTE:Xarelto Next of Kin: child- Maryanne Vásquez [phone] D/C plan: Pending placement Code status: Full Plan of care time> 40 minutes Code(s): R53.1 - WEAKNESS
[2025-05-10] MEDS: PROAMATINE PO SCH (15:47)
--- NOTE | 2025-05-10 21:13 | PCM.NOTE ---
TELE MED Encounter - Tele-Med Encounter Tele-Med Encounter: "The entirety of this encounter was performed via Telemedicine" Notified by RN that patient is hypotensive with BP of 68/42. Patient is aysmptomatic; alert and oriented x 3, NAD. Was given midodrine earlier. RN confirms BP was checked manually and in different locations. Will consider IV fluid hydration and monitor closely.
[2025-05-11 05:41] LABS: Hematocrit 41.2 % (34.1-44.9); Hemoglobin 13.5 g/dL (11.2-15.7); Mean Corpuscular Hemoglobin 31.3 pg (25.6-32.2); Mean Corpuscular Hgb Concent. 32.8 g/dL (32.2-35.5); Platelet Count 214 x10^3/uL (182-369); Red Blood Count 4.31 x10^6/uL (3.93-5.22); White Blood Count 7.3 x10^3/uL (3.98-10.04)
--- NOTE | 2025-05-11 05:50 | PCM.NOTE ---
Date and Time: 05/11/25 0544 Subjective Assessment: Ms. 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 She is a daily tobacco user but recently initiated nicotine patch therapy. She was brought to the emergency department on 05/06/25 after a fall at home, initially requiring lift assistance and later developing scalp bleeding and right wrist/left foot pain. She normally ambulates with a walker but was unable to stand due to ankle pain. She denied loss of consciousness. Initial evaluation revealed WBC 12.8, concerning for infection, though CT head and cervical spine were negative for acute findings. Multiple X-rays were obtained, all without acute fracture. Scalp laceration was repaired with two yesy. Urinalysis was initially abnormal, and she was empirically started on IV ceftriaxone, though urine culture returned negative, and antibiotics were discontinued. She has struggled with mobility throughout admission. Physical therapy noted significant weakness and poor tolerance to ambulation. Podiatry consult was obtained for foot pain, and a CAM boot was ordered. Case management has been involved for discharge planning, with consideration of rehab placement versus home health care. Course was complicated by hyponatremia (Na 130 on 05/08), managed with fluid restriction, which resolved by 05/09 (Na 135, restriction lifted). Patient continues to report weakness, requesting rehab placement. Overnight oximetry demonstrated desaturations into the 80s with CPAP use, requiring supplemental oxygen. Respiratory therapy scheduled an outpatient O? titration study. As of 05/10/25, the patient remains weak, fatigued, and not confident in returning home independently. She is stable, denies chest pain, shortness of breath, abdominal pain, nausea, vomiting, or diarrhea. Discharge planning remains focused on rehabilitation placement versus home discharge with [facility] depending on progress. Overnight patient became hypotensive with BP lowest at 70/50. IVF bolus of 250mls ordered by overnight physician. Objective Exam Wound Assessment: Skin/Wound Assessment Wound/Incision Assessment Start: 05/06/25 12:36 Text: Status: Active Freq: Q6H Protocol: Document 05/11/25 01:36 CWB (Rec: 05/11/25 01:39 CWB [id number]) Wound/Incision Assessment Right Parietal Wound Assessment Shift Assessment Wound Type Laceration Drainage Amount None General Appearance Well Approximated,Yesy Intact,Open to air Wound Photo Photo Taken No Objective Data Vital Signs: Vital Signs - 24 hr Temp Pulse Resp BP BP Pulse Ox 05/11/25 05:00 70/50 05/11/25 04:00 98.2 F 71 16 76/48 95 05/11/25 03:03 80/58 05/11/25 01:36 84/54 05/11/25 00:55 84/54 05/11/25 00:29 96 05/11/25 00:04 96.5 F 64 18 80/50 93 L 05/10/25 21:51 65 18 120/56 96 05/10/25 20:35 68/42 05/10/25 20:34 68/42 05/10/25 19:53 97.5 F 76 17 64/48 91 L 05/10/25 17:37 98.1 F 87 22 90/58 99 05/10/25 14:00 70/56 05/10/25 12:00 97.6 F 71 22 90/58 96 05/10/25 10:03 94 L 05/10/25 07:49 97.9 F 74 22 142/81 95 Pain Assessment - Last Documented Pain Intensity 0 Intake and Output: Intake & Output 05/08/25 05/09/25 05/10/25 05/11/25 11:59 11:59 11:59 11:59 Intake Total 990 077 5109 480 Output Total 1900 425 500 Balance -207 444 8928 -20 Weight 120.4 kg 119.8 kg Lab Results: Lab Results-Last 24 Hours 05/10/25 05/10/25 Range/Units 05:00 06:23 WBC 7.6 (3.98-10.04) x10^3/uL RBC 4.44 (3.93-5.22) x10^6/uL Hgb 14.2 (11.2-15.7) g/dL Hct 43.2 (34.1-44.9) % MCV 97.3 H (79.4-94.8) fL MCH 32.0 (25.6-32.2) pg MCHC 32.9 (32.2-35.5) g/dL RDW 13.2 (11.7-14.4) % Plt Count 189 (182-369) x10^3/uL MPV 10.4 (9.4-12.3) fL Sodium 135 (135-145) mmol/L Potassium 4.3 (3.5-5.1) mmol/L Chloride 100 (98-107) mmol/L Carbon Dioxide 30 (22-30) mmol/L Anion Gap 9.3 (5-15) MEQ/L BUN 24 H (7-17) mg/dL Creatinine 0.68 (0.52-1.04) mg/dL Estimated GFR 88.5 ML/MIN Glucose 107 H (74-106) mg/dL Calcium 9.8 (8.4-10.2) mg/dL Total Bilirubin 0.50 (0.2-1.3) mg/dL AST 21 (14-36) U/L ALT 13 (0-35) U/L Alkaline Phosphatase 88 (38-126) U/L Serum Total Protein 6.8 (6.3-8.2) g/dL Albumin 3.6 (3.5-5.0) g/dL Medications: Medications Generic Name Dose Route Start Last Admin Trade Name Freq PRN Reason Stop Dose Admin Bumetanide 0.5 mg 05/08/25 10:00 05/10/25 12:39 Bumetanide 1 Mg Tablet PO 06/07/25 09:59 0.5 mg QAM NATALI Administration Citalopram Hydrobromide 5 mg 05/06/25 22:00 05/10/25 21:36 Citalopram Hydrobromide 20 Mg Tablet PO 06/05/25 21:59 5 mg HS NATALI Administration Cyanocobalamin 1,000 mcg 05/06/25 13:00 05/10/25 12:40 Cyanocobalamin 500 Mcg Tablet PO 06/05/25 12:59 1,000 mcg DAILY NATALI Administration Sodium Chloride 250 mls @ 250 mls/hr 05/11/25 04:30 05/11/25 04:40 Sodium Chloride 0.9% 250 Ml IV 05/11/25 05:29 250 mls/hr .Q1H NATALI Administration Levetiracetam 500 mg 05/06/25 22:00 05/10/25 21:37 Levetiracetam 500 Mg Tablet PO 06/05/25 21:59 500 mg HS NATALI Administration Midodrine 2.5 mg 05/10/25 15:30 05/10/25 20:02 Midodrine Hcl 5 Mg Tablet PO 06/09/25 15:29 2.5 mg TID NATALI Administration Mirabegron 50 mg 05/06/25 22:00 05/10/25 21:36 Mirabegron 25 Mg Tab.Er.24h PO 06/05/25 21:59 50 mg HS NATALI Administration Nicotine 21 mg 05/06/25 12:30 05/10/25 10:42 Nicotine 21 Mg/Patch Patch TOP 06/05/25 12:29 Not Given Q24H10 NATALI Rivaroxaban 2.5 mg 05/06/25 13:00 05/10/25 21:36 Rivaroxaban 10 Mg Tablet PO 06/05/25 12:59 2.5 mg BID NATALI Administration Simvastatin 40 mg 05/06/25 22:00 05/10/25 21:36 Simvastatin 20 Mg Tablet PO 06/05/25 21:59 40 mg HS NATALI Administration Spironolactone 25 mg 05/08/25 10:00 05/10/25 18:45 Spironolactone 25 Mg Tablet PO 06/07/25 09:59 Not Given QAM NATALI Discontinued Medications Generic Name Dose Route Start Last Admin Trade Name Freq PRN Reason Stop Dose Admin Albuterol Sulfate 2 puff 05/06/25 12:31 Albuterol Common Canister Inhaler IH 06/05/25 12:30 Q4H PRN PRN SHORTNESS OF BREATH Bumetanide 0.5 mg 05/06/25 22:00 05/06/25 22:43 Bumetanide 1 Mg Tablet PO 06/05/25 21:59 Not Given HS [facility] Ceftriaxone Sodium 1 gm in 100 mls @ 200 mls/hr 05/06/25 18:00 05/06/25 20:37 Rocephin 1 Gm / 100 Ml Nacl IV 06/05/25 17:59 200 mls/hr Q24H10 NATALI Administration Non-Formulary Medication 0 tab 05/06/25 12:45 Cholecalciferol (Vitamin D3) [Vitamin D] .ROUTE 06/05/25 12:44 .COMPLEX NATALI Spironolactone 25 mg 05/06/25 22:00 05/06/25 22:46 Spironolactone 25 Mg Tablet PO 06/05/25 21:59 Not Given HS [facility] Assessment/Plan (1) UTI (urinary tract infection) Current Visit: No Status: Acute Qualifiers: Urinary tract infection type: site unspecified Hematuria presence: with hematuria Qualified Code(s): N39.0 - Urinary tract infection, site not specified; R31.9 - Hematuria, unspecified Assessment & Plan: -Initial UA concerning; empiric IV ceftriaxone started. -Urine culture negative antibiotics discontinued. -No further antibiotics; monitor for recurrent symptoms. Code(s): N39.0 - URINARY TRACT INFECTION, SITE NOT SPECIFIED (2) Leukocytosis Current Visit: Yes Status: Resolved Assessment & Plan: -WBC 12.8- improved to 10.1 -normalized. -Likely reactive to fall/injury. - Continue monitoring CBC. Code(s): D72.829 - ELEVATED WHITE BLOOD CELL COUNT, UNSPECIFIED (3) Weakness Current Visit: Yes Status: Acute Assessment & Plan: -Multifactorial: baseline hemiparesis, obesity, recent injury, deconditioning. -PT involvement; ambulation attempted with staff. -Patient requests rehab; CM arranging placement. - Encourage mobility, PT/OT, rehab vs [facility] depending on progress. Code(s): R53.1 - WEAKNESS (4) Hemiparesis Current Visit: Yes Status: Acute Assessment & Plan: -Baseline left-sided weakness from prior TBI. -Stable, no new deficits. -Continue supportive care and mobility assistance. Code(s): G81.90 - HEMIPLEGIA, UNSPECIFIED AFFECTING UNSPECIFIED SIDE (5) HLD (hyperlipidemia) Current Visit: Yes Status: Acute Assessment & Plan: -Stable. -Continue statin therapy. Code(s): E78.5 - HYPERLIPIDEMIA, UNSPECIFIED (6) Fall with no significant injury Current Visit: Yes Status: Acute Assessment & Plan: -CT head/cervical spine negative for acute pathology. -Multiple XR negative. -PT evaluation and fall prevention education; CM for safe discharge planning. Code(s): W19.XXXA - UNSPECIFIED FALL, INITIAL ENCOUNTER (7) Left ankle sprain Current Visit: Yes Status: Acute Assessment & Plan: -X-ray negative for fracture. -Initial management: RICE, wrap, ice, elevation. -Podiatry consulted- CAM boot placed. -PT evaluation limited due to weakness. -Continue ambulation with staff TID; elevate and ice LLE; rehab vs [facility] for mobility support. Code(s): S93.402A - SPRAIN OF UNSPECIFIED LIGAMENT OF LEFT ANKLE, INIT ENCNTR (8) Scalp laceration Current Visit: Yes Status: Acute Assessment & Plan: -Secondary to fall; closed with 2 yesy. -No intracranial bleed on CT. -Wound care; staple removal in 710 days. (9) Chronic anticoagulation Current Visit: Yes Status: Chronic Assessment & Plan: -On Xarelto for stroke prevention with hemiparesis history. Code(s): Z79.01 - [employer] (CURRENT) USE OF ANTICOAGULANTS (10) Morbid obesity with BMI of 45.0-49.9, adult Current Visit: Yes Status: Chronic Assessment & Plan: -Ongoing contributor to mobility and respiratory limitations. -Reception Interviewer on diet and activity modifications as tolerated. Code(s): E66.01 - MORBID (SEVERE) OBESITY DUE TO EXCESS CALORIES; Z68.42 - BODY MASS INDEX [BMI] 45.0-49.9, ADULT (11) Seizure disorder Current Visit: Yes Status: Chronic Assessment & Plan: -No seizures this admission. -Continue home antiepileptic regimen. Code(s): G40.909 - EPILEPSY, UNSP, NOT INTRACTABLE, WITHOUT STATUS EPILEPTICUS (12) Sleep apnea Current Visit: Yes Status: Chronic Assessment & Plan: -CPAP use noted; desats into 80s overnight. -Switched from nasal prong mask to full face mask, poorly tolerated. -Supplemental O? with CPAP at night; outpatient O? titration study arranged. Code(s): G47.30 - SLEEP APNEA, UNSPECIFIED (13) Hyponatremia Current Visit: Yes Status: Resolved Assessment & Plan: -Na 130 (05/08) - 135 (05/09). -Managed with 1,800 mL fluid restriction, later discontinued. -Continue monitoring sodium. Code(s): E87.1 - HYPO-OSMOLALITY AND HYPONATREMIA (14) Hypotension Current Visit: Yes Status: Acute Assessment & Plan: -overnight events of BP lowest 70/50 - hold diurectics for now- continue midodrine -250ml fluid bolus given -midodrine 10mg tid -can resume diurectics when BP improved at NH Code(s): I95.9 - HYPOTENSION, UNSPECIFIED
[2025-05-11 06:23] LABS: Calcium 10.0 mg/dL (8.4-10.2); Carbon Dioxide 28.0 mmol/L (22-30); Creatinine 1 0.66 mg/dL (0.52-1.04); EST GLOMERULAR FILTRATION RATE 89.2 ML/MIN; Glucose 102.0 mg/dL (74-106); Potassium 4.7 mmol/L (3.5-5.1)
[2025-05-11 07:42] LABS: BASOPHIL % 0.6 % (0.1-1.2); Basophil (Absolute #) 0.05 x10^3/uL (0.01-0.08); Eosinophil (Absolute #) 0.29 x10^3/uL (0.04-0.36); Hematocrit 41.8 % (34.1-44.9); Hemoglobin 13.9 g/dL (11.2-15.7); IMMATURE GRAN # 0.03 x10^3u/L (0.001-0.031); IMMATURE GRAN % 0.4 % (0.001-0.429); Lymphocyte (Absolute #) 1.44 x10^3/uL (1.18-3.74); Mean Corpuscular Hemoglobin 32.3 pg (25.6-32.2); Mean Corpuscular Hgb Concent. 33.3 g/dL (32.2-35.5); Monocyte (Absolute #) 0.83 x10^3/uL (0.24-0.86); NUCLEATED RBC # 0.00 x10^3u/L (0.00-0.012); NUCLEATED RBC % 0.0 % (0.00-0.2); Platelet Count 206 x10^3/uL (182-369); Red Blood Count 4.30 x10^6/uL (3.93-5.22); White Blood Count 8.3 x10^3/uL (3.98-10.04)
[2025-05-11 07:55] LABS: Calcium 10.0 mg/dL (8.4-10.2); Carbon Dioxide 30.0 mmol/L (22-30); Creatinine 1 0.72 mg/dL (0.52-1.04); EST GLOMERULAR FILTRATION RATE 85.0 ML/MIN; Glucose 104.0 mg/dL (74-106); Potassium 4.3 mmol/L (3.5-5.1); SGOT/AST 23.0 U/L (14-36); SGPT/ALT 13.0 U/L (0-35); Total Protein 6.9 g/dL (6.3-8.2)
[2025-05-11] MEDS: PROAMATINE PO SCH (08:53)
--- NOTE | 2025-05-11 10:20 | PCM.DS ---
Discharge Summary Date of Admission: 05/06/25 11:30 Date of Discharge: 05/11/25 Admitting Physician: KRISTA SLATER MD Consults: Consults on Case 05/07/25 11:42 Consult Podiatry ROUTINE Primary Care Provider: MAGY GONZALEZ HOLLAND Allergies Allergies capsaicin Allergy (Intermediate, Verified 05/06/25 11:57) Hives tetracycline Allergy (Verified 05/06/25 11:57) metronidazole [From Flagyl] Adverse Reaction (Verified 05/06/25 11:57) PT REPORTS SEVERE WEAKNESS Hospital Summary - Hospital Course Hospital Course: Ms. Shah is a 80-year-old female with a history of seizure disorder, morbid obesity, hypertension, hyperlipidemia, and chronic left hemiplegia secondary to childhood traumatic brain injury. She is a daily smoker who recently began nicotine patch therapy. She presented to the ED on 05/06/25 after a fall at home, requiring lift assistance and later developing scalp bleeding and pain in the right wrist and left foot. She usually ambulates with a walker but was unable to stand due to ankle pain. She denied loss of consciousness. Initial evaluation showed leukocytosis (WBC 12.8). CT head and cervical spine were negative for acute findings, and multiple X-rays revealed no acute fractures. Scalp laceration was repaired with two eric. UA was initially abnormal, prompting empiric IV ceftriaxone; however, urine culture was negative, and antibiotics were discontinued. She developed weakness and had limited mobility despite PT efforts. Podiatry evaluated her left foot and placed a CAM boot. Case management coordinated discharge planning for rehab versus home health care. Course was further complicated by hyponatremia (Na 130 on 05/08) which corrected with fluid restriction, and an overnight hypotensive episode (BP 70/50) treated with IV fluids and initiation of midodrine, with stabilization to 90/68. Overnight oximetry showed desaturations with CPAP, requiring supplemental oxygen; an outpatient oxygen titration study was scheduled. At discharge on 05/10/25, the patient remains weak and deconditioned, requiring skilled rehabilitation support. She is stable and denies chest pain, shortness of breath, abdominal pain, nausea, vomiting, or diarrhea. She is being transferred to a longterm for continued rehabilitation and medical management. Discharge Note New Medications: Midodrine 10mg TID - Will need eric out on 05/15/25 Follow Up: PCP I spent 35 minutes [id number] with the patient on the day of discharge performing discharge exam, discussing hospital stay and discharge instructions with patient and caregivers, preparation of discharge records, prescriptions & referral forms and addressing any questions/concerns the patient had as documented above. - Vitals & Intake/Output Vital Signs: Vital Signs Temperature 96.8 F 05/11/25 06:34 Pulse Rate 76 05/11/25 06:34 Respiratory Rate 18 05/11/25 06:34 Blood Pressure 90/68 05/11/25 10:00 O2 Sat by Pulse Oximetry 99 05/11/25 06:34 Intake & Output: Intake & Output 05/08/25 05/09/25 05/10/25 05/11/25 11:59 11:59 11:59 11:59 Intake Total 736 862 1403 720 Output Total 1900 425 500 Balance -344 157 4383 220 Weight 120.4 kg 119.8 kg - Lab Result Diagrams: 05/11/25 07:35 05/11/25 07:35 Lab Results-Last 24 Hrs: Lab Results-Last 24 Hours 05/11/25 05/11/25 05/11/25 Range/Units 05:00 05:00 07:35 WBC 7.3 8.3 (3.98-10.04) x10^3/uL RBC 4.31 4.30 (3.93-5.22) x10^6/uL Hgb 13.5 13.9 (11.2-15.7) g/dL Hct 41.2 41.8 (34.1-44.9) % MCV 95.6 H 97.2 H (79.4-94.8) fL MCH 31.3 32.3 H (25.6-32.2) pg MCHC 32.8 33.3 (32.2-35.5) g/dL RDW 13.2 13.2 (11.7-14.4) % Plt Count 214 206 (182-369) x10^3/uL MPV 11.1 10.8 (9.4-12.3) fL Gran % 68.2 (34.0-71.1) % Immature Gran % (Auto) 0.4 (0.001-0.429) % Nucleat RBC Rel Count 0.0 (0.00-0.2) % Eos # (Auto) 0.29 (0.04-0.36) x10^3/uL Immature Gran # (Auto) 0.03 (0.001-0.031) x10^3u/L Absolute Lymphs (auto) 1.44 (1.18-3.74) x10^3/uL Absolute Monos (auto) 0.83 (0.24-0.86) x10^3/uL Absolute Nucleated RBC 0.00 (0.00-0.012) x10^3u/L Lymphocytes % 17.3 L (19.3-51.7) % Monocytes % 10.0 (4.7-12.5) % Eosinophils % 3.5 (0.7-5.8) % Basophils % 0.6 (0.1-1.2) % Absolute Granulocytes 5.68 (1.56-6.13) x10^3/uL Basophils # 0.05 (0.01-0.08) x10^3/uL Sodium 160 H* D (135-145) mmol/L Potassium 4.7 (3.5-5.1) mmol/L Chloride 99 (98-107) mmol/L Carbon Dioxide 28 (22-30) mmol/L Anion Gap 36.5 H (5-15) MEQ/L BUN 31 H (7-17) mg/dL Creatinine 0.66 (0.52-1.04) mg/dL Estimated GFR 89.2 ML/MIN Glucose 102 (74-106) mg/dL Calcium 10.0 (8.4-10.2) mg/dL Total Bilirubin (0.2-1.3) mg/dL AST (14-36) U/L ALT (0-35) U/L Alkaline Phosphatase (38-126) U/L Serum Total Protein (6.3-8.2) g/dL Albumin (3.5-5.0) g/dL 05/11/25 Range/Units 07:35 WBC (3.98-10.04) x10^3/uL RBC (3.93-5.22) x10^6/uL Hgb (11.2-15.7) g/dL Hct (34.1-44.9) % MCV (79.4-94.8) fL MCH (25.6-32.2) pg MCHC (32.2-35.5) g/dL RDW (11.7-14.4) % Plt Count (182-369) x10^3/uL MPV (9.4-12.3) fL Gran % (34.0-71.1) % Immature Gran % (Auto) (0.001-0.429) % Nucleat RBC Rel Count (0.00-0.2) % Eos # (Auto) (0.04-0.36) x10^3/uL Immature Gran # (Auto) (0.001-0.031) x10^3u/L Absolute Lymphs (auto) (1.18-3.74) x10^3/uL Absolute Monos (auto) (0.24-0.86) x10^3/uL Absolute Nucleated RBC (0.00-0.012) x10^3u/L Lymphocytes % (19.3-51.7) % Monocytes % (4.7-12.5) % Eosinophils % (0.7-5.8) % Basophils % (0.1-1.2) % Absolute Granulocytes (1.56-6.13) x10^3/uL Basophils # (0.01-0.08) x10^3/uL Sodium 135 D (135-145) mmol/L Potassium 4.3 (3.5-5.1) mmol/L Chloride 100 (98-107) mmol/L Carbon Dioxide 30 (22-30) mmol/L Anion Gap 8.7 (5-15) MEQ/L BUN 28 H (7-17) mg/dL Creatinine 0.72 (0.52-1.04) mg/dL Estimated GFR 85.0 ML/MIN Glucose 104 (74-106) mg/dL Calcium 10.0 (8.4-10.2) mg/dL Total Bilirubin 0.40 (0.2-1.3) mg/dL AST 23 (14-36) U/L ALT 13 (0-35) U/L Alkaline Phosphatase 88 (38-126) U/L Serum Total Protein 6.9 (6.3-8.2) g/dL Albumin 3.7 (3.5-5.0) g/dL Micro Results-Entire Visit: Microbiology 05/06/25 14:16 Urine Culture - Final Urine, Void MIXED NAYELI; 3 OR MORE TYPES. NO PREDOMINANT ORGANISM. NO FURTHER WORKUP. PLEASE RESUBMIT IF CLINICALLY INDICATED. - Procedures and Test Procedures and Tests throughout Hospitalization: Therapy Orders & Screens 05/06/25 11:39 PT Eval & Treat (MD Order) ONCE Reason for Eval:: Patient lives alone. Uses walker to ambulate. Sprained left ankle. Cannot bear weight. Patient morbidly obese Diagnosis: Left ankle sprain 05/06/25 17:29 RT Miscellaneous Order ROUTINE Comment: Physician Instructions: Reason For Exam: CPAP at night Diagnosis: Left ankle sprain 05/06/25 21:00 BiPap/CPAP ROUTINE Comment: HOME UNIT PER HOME SETTINGS Diagnosis: Left ankle sprain 05/07/25 05:55 Oxygen Nasal Cannula 2 lpm Comment: @ NOC WITH CPAP Diagnosis: Left ankle sprain 05/07/25 11:43 PT Eval & Treat ( Order) ONCE Reason for Eval:: OK for CAM boot per podiatry Diagnosis: Left ankle sprain Discharge Exam General Appearance: no apparent distress Neurologic Exam: alert, oriented x 3, cooperative Eye Exam: PERRL Ears, Nose, Throat Exam: normal ENT inspection Neck Exam: normal inspection Respiratory Exam: normal breath sounds, lungs clear Cardiovascular Exam: regular rate/rhythm, normal heart sounds Gastrointestinal/Abdomen Exam: soft, normal bowel sounds Pelvic Exam: deferred Rectal Exam: deferred Back Exam: normal inspection Extremity Exam: normal inspection Skin Exam: normal color Wound Assessment: Skin/Wound Assessment Wound/Incision Assessment Start: 05/06/25 12:36 Text: Status: Active Freq: Q6H Protocol: Document 05/11/25 01:36 CWB (Rec: 05/11/25 01:39 CWB [id number]) Wound/Incision Assessment Right Parietal Wound Assessment Shift Assessment Wound Type Laceration Drainage Amount None General Appearance Well Approximated,Eric Intact,Open to air Wound Photo Photo Taken No Final Diagnosis/Problem List - Final Discharge Diagnosis/Problem (1) UTI (urinary tract infection) Current Visit: No Status: Acute Assessment & Plan: Completed empiric IV ceftriaxone; antibiotics discontinued once cultures negative Monitor for recurrent symptoms Code(s): N39.0 - URINARY TRACT INFECTION, SITE NOT SPECIFIED (2) Leukocytosis Current Visit: Yes Status: Resolved Assessment & Plan: WBC improved from 12.8-8.3 Likely reactive; continue CBC monitoring Code(s): D72.829 - ELEVATED WHITE BLOOD CELL COUNT, UNSPECIFIED (3) Weakness Current Visit: Yes Status: Acute Assessment & Plan: Multifactorial (baseline hemiparesis, obesity, recent injury) PT/OT daily at facility; encourage progressive mobility Rehab placement for strengthening and gait training Code(s): R53.1 - WEAKNESS (4) Hemiparesis Current Visit: Yes Status: Acute Code(s): G81.90 - HEMIPLEGIA, UNSPECIFIED AFFECTING UNSPECIFIED SIDE (5) HLD (hyperlipidemia) Current Visit: Yes Status: Acute Assessment & Plan: continue statin Code(s): E78.5 - HYPERLIPIDEMIA, UNSPECIFIED (6) Fall with no significant injury Current Visit: Yes Status: Acute Assessment & Plan: CT head/c-spine negative, XR negative Fall prevention strategies, supervised ambulation, PT/OT support Code(s): W19.XXXA - UNSPECIFIED FALL, INITIAL ENCOUNTER (7) Left ankle sprain Current Visit: Yes Status: Acute Assessment & Plan: XR negative; podiatry placed CAM boot Continue RICE therapy (rest, ice, compression, elevation) Ambulation with staff TID, progressive PT, maintain CAM boot until cleared Code(s): S93.402A - SPRAIN OF UNSPECIFIED LIGAMENT OF LEFT ANKLE, INIT ENCNTR (8) Scalp laceration Current Visit: Yes Status: Acute Assessment & Plan: Repaired with 2 eric Wound care daily, eric out in 710 days (05/17/25) (9) Chronic anticoagulation Current Visit: Yes Status: Chronic Assessment & Plan: Continue Xarelto for stroke prevention given hemiparesis history Monitor for bleeding Code(s): Z79.01 - FPC (CURRENT) USE OF ANTICOAGULANTS (10) Morbid obesity with BMI of 45.0-49.9, adult Current Visit: Yes Status: Chronic Code(s): E66.01 - MORBID (SEVERE) OBESITY DUE TO EXCESS CALORIES; Z68.42 - BODY MASS INDEX [BMI] 45.0-49.9, ADULT (11) Seizure disorder Current Visit: Yes Status: Chronic Assessment & Plan: Continue home antiepileptic regimen Seizure precautions in facility Code(s): G40.909 - EPILEPSY, UNSP, NOT INTRACTABLE, WITHOUT STATUS EPILEPTICUS (12) Sleep apnea Current Visit: Yes Status: Chronic Assessment & Plan: Continue CPAP with supplemental oxygen at night Outpatient O2 titration study scheduled Code(s): G47.30 - SLEEP APNEA, UNSPECIFIED (13) Hyponatremia Current Visit: Yes Status: Resolved Assessment & Plan: resolved Code(s): E87.1 - HYPO-OSMOLALITY AND HYPONATREMIA (14) Hypotension Current Visit: Yes Status: Acute Assessment & Plan: Treated with 250 mL IV fluids and midodrine 10 mg TID Hold diuretics until BP consistently stable Monitor orthostatics; titrate [facility]od[facility] Code(s): I95.9 - HYPOTENSION, UNSPECIFIED - Discharge Discharge Date: 05/11/25 Disposition: DC TO ANY "OTHER" HALFWAY Condition: Stable Prescriptions: New Midodrine HCl [Proamatine] 10 mg PO TID@0800,1300,1800 tablet Continue Levetiracetam [Keppra] 500 mg PO HS Simvastatin 40 mg [Zocor 40 mg] 40 mg PO HS Citalopram Hydrobromide [Citalopram HBr] 5 mg PO HS Rivaroxaban [Xarelto] 2.5 mg PO BID Cyanocobalamin (Vitamin B-12) [Vitamin B12] 1,000 mcg PO DAILY Albuterol Sulfate [Albuterol Sulfate Hfa] 2 puff PO Q4H PRN PRN PRN Reason: Shortness Of Breath Mirabegron [Myrbetriq] 50 mg PO HS Cholecalciferol (Vitamin D3) [Vitamin D] See Rx Instructions .ROUTE .COMPLEX Discontinued Bumetanide 0.5 mg PO HS Spironolactone 25 mg [Aldactone 25 MG] 25 mg PO HS Outpatient Orders: Titration Study Time Frame: 1 Day, Facility: [facility], Location: RESPIRATORY THERAPY Instructions: Preventing falls in adults Additional Instructions: HALFWAY ORDERS: HEART HEALTHY DIET PT/OT EVAL AND TREAT WEAR VINI BOOT WHEN AMBULATING WEIGHT BEARING TOLERATED CPAP PER HOME USE- ADD 3L (THIS IS NEW FOR PATIENT, SEE APT FOR TESTING BELOW) SEE ATTACHED MED LIST HOLD diurectics until BP stablizes with initiation of midodrine June AT 8:30 PM YOU A HAVE A SCHEDULED TITRATION SLEEP STUDY TEST. PLEASE COME IN TO REGISTER AND THEN REPORT TO SLEEP STUDY LAB AT [facility]. Follow up with: ROX HUNT DPM [ACTIVE STAFF, PODIATRY] - 05/24/25 9:00 am MAGY GONZALEZ MD [Primary Care Provider, FAMILY PRACTICE] - 05/14/25 2:15 pm Referral Note: You will not need to see Luna Castorena NP on 05/13/2025, you will just follow up with Dr. Gonzalez instead.
[2025-05-11] MEDS ORDERED: PROAMATINE PO SCH (10:22)
[2025-05-11] MEDS: PROAMATINE PO ONE (11:18)
[2025-05-11 11:40] VITALS: BP 86/62
[2025-05-11 11:54] VITALS: PULSE 71; RESP 17; TEMP 97.1; O2SAT 95
== END 2025-05-11 12:10 ==
LOC: ED 07:55 → MED SURG 11:30
PROVIDERS: ADMIT Internal Medicine; ATTEND Internal Medicine
DX: N39.0 Urinary tract infection, site not specified (principal); D72.829 Elevated white blood cell count, unspecified; R53.1 Weakness; E78.5 Hyperlipidemia, unspecified; G81.94 Hemiplegia, unspecified affecting left nondominant side; W19.XXXA Unspecified fall, initial encounter; S92.402A Displaced unspecified fracture of left great toe, initial encounter for closed fracture; S01.01XA Laceration without foreign body of scalp, initial encounter; Z79.01 Long term (current) use of anticoagulants; Z79.899 Other long term (current) drug therapy; E66.01 Morbid (severe) obesity due to excess calories; Z68.42 Body mass index [BMI] 45.0-49.9, adult; G40.909 Epilepsy, unspecified, not intractable, without status epilepticus; G47.30 Sleep apnea, unspecified; E87.1 Hypo-osmolality and hyponatremia; I95.9 Hypotension, unspecified; S92.342A Displaced fracture of fourth metatarsal bone, left foot, initial encounter for closed fracture; S93.412A Sprain of calcaneofibular ligament of left ankle, initial encounter; I10 Essential (primary) hypertension; F17.200 Nicotine dependence, unspecified, uncomplicated
CPT/HCPCS: 12001; 36415; 70450; 72125; 73110; 73610; 73630; 80048; 80053; 81001; 82947; 85025; 85027; 85610; 87086; 94760; 94762; 97110; 97161; 97530; 99232; 99285; G0378; Q3014